=== PATIENT | female | born 1970 | race Caucasian/White ===

== ENCOUNTER 2024-02-18 19:34 | Inpatient (IN) | payer OTHER, SELFPAY ==
[2024-02-18] VITALS (7 sets, daily range): BP systolic 130–148; BP diastolic 78–95; PULSE 90–105; RESP 16–20; TEMP 37.1–38.6; O2SAT 96–98; BMI 27.3
--- NOTE | 2024-02-18 19:47 | XR_ITS ---
PROCEDURE INFORMATION: Exam: XR Right Tibia and Fibula Exam date and time: 02/18/2024 7:57 PM Age: 53 years old Clinical indication: Pain; Lower leg; Right; Additional info: Fall TECHNIQUE: Imaging protocol: Radiologic exam of the right tibia and fibula. Views: 2 views. COMPARISON: CR XR ANKLE RT MIN 3V 02/18/2024 7:57 PM FINDINGS: Bones/joints: No acute fracture or malalignment. Soft tissues: Normal. IMPRESSION: No acute osseous findings.
--- NOTE | 2024-02-18 19:47 | XR_ITS ---
PROCEDURE INFORMATION: Exam: XR Right Foot Exam date and time: 02/18/2024 7:57 PM Age: 53 years old Clinical indication: Pain; Foot; Right; Additional info: Fell TECHNIQUE: Imaging protocol: Radiologic exam of the right foot. Views: 1 or 2 views. COMPARISON: CR XR ANKLE RT MIN 3V 02/18/2024 7:57 PM FINDINGS: Bones/joints: Nondisplaced 5th metatarsal base avulsion fracture. Mild calcaneal enthesopathy. Soft tissues: Mild soft tissue swelling. IMPRESSION: Nondisplaced 5th metatarsal base avulsion fracture.
--- NOTE | 2024-02-18 19:47 | XR_ITS ---
PROCEDURE INFORMATION: Exam: XR Right Ankle Exam date and time: 02/18/2024 7:57 PM Age: 53 years old Clinical indication: Pain; Ankle; Right; Additional info: Fell TECHNIQUE: Imaging protocol: Radiologic exam of the right ankle. Views: 3 or more views. COMPARISON: CR XR FOOT RT 2V 02/18/2024 7:57 PM FINDINGS: Bones/joints: Nondisplaced 5th metatarsal base fracture. Mild chronic posttraumatic avulsive changes of the lateral malleolus. Mild calcaneal enthesopathy. Soft tissues: Mild soft tissue swelling. IMPRESSION: Nondisplaced 5th metatarsal base fracture.
--- NOTE | 2024-02-18 19:47 | ED_ITS ---
<Statement entered by Deisy Kapoor MD - 02/18/24 23:08> I was consulted by the YESSI, and we discussed the complexity of the problems being addressed. I approved the treatment and management plan for this patient's care in the emergency department, thus performing a substantive portion of the medical decision making. Deisy Kapoor MD, JUAN PABLO, FACEP Discharge Plan Disposition Chief Complaint: Dizziness Referrals Follow up/Referrals: Provider,Referral, MD [Primary Care Provider] - See instructions Clinical Impressions Clinical Impression: Stroke Qualifiers: CVA mechanism: occlusion Laterality of affected vessel: left Metatarsal fracture Qualifiers: Encounter type: initial encounter Metatarsal bone: fifth Fracture type: closed Fracture alignment: nondisplaced Laterality: right Qualified Code(s): S92.354A - Nondisplaced fracture of fifth metatarsal bone, right foot, initial encounter for closed fracture UTI (urinary tract infection) Qualifiers: Urinary tract infection type: site unspecified Hematuria presence: with hematuria Qualified Code(s): N39.0 - Urinary tract infection, site not specified Discharge ED Provider: Deisy Kapoor General Adult HPI <FRACISCO Uribe - Last Filed: 02/18/24 23:07> General Chief complaint: Dizziness Stated complaint: AO 02-17-24 Hurt right ankle going to bathroom Time Seen by Provider: 02/18/24 19:46 History of Present Illness HPI narrative: Patient presents for initially a right ankle injury. Patient was going to the bathroom and fell injuring her right ankle yesterday. However on further questioning patient is normally conversant and she is having difficult conversing today. She was febrile and tachycardic on arrival. Patient has had multiple previous strokes and there are communication barriers at baseline however she is much more active. Patient does nod but she is giving having difficulty giving verbal answers today. She denies chest pain hemoptysis hematochezia melena nausea vomiting diarrhea dysuria. Related Data Allergies Allergy/AdvReac Type Severity Reaction Status Date / Time ibuprofen Allergy Verified 02/18/24 20:55 PFS <FRACISCO Uribe - Last Filed: 02/18/24 23:07> [facility] Disclaimer: The information contained in this section may have been updated after the patient was seen, as this information can be updated by other users. Social History (Updated 02/18/24 @ 23:07 by FRACISCO Uribe) Smoking Status: Current every day smoker alcohol intake: never current occupational status: disabled Travel in the last 8 weeks: None <FRACISCO Uribe - Last Filed: 02/18/24 23:07> ROS Obtained: Yes Systems reviewed as appropriate & no additional complaints except as documented Physical Exam <FRACISCO Uribe - Last Filed: 02/18/24 23:07> General General appearance: alert and in no apparent distress Eye Eye exam: Present normal appearance, PERRL and EOMI ENT ENT exam: Present normal exam, normal oropharynx and mucous membranes moist Neck Neck exam: Present normal inspection Chest Chest inspection: Present normal inspection and symmetric chest wall rise Respiratory Respiratory exam: Present normal lung sounds bilaterally and stridor; Absent respiratory distress, wheezes or accessory muscle use Cardiovascular Cardiovascular exam: Present normal rhythm, tachycardia, normal heart sounds, +S1 and +S2 Abdominal Exam Abdominal exam: Present soft and normal bowel sounds; Absent tenderness, guarding, rebound or rigidity Expanded Lower Extremity Exam Right: Leg image: 2 1. Tenderness and edema no erythema no bony deformity noted Neurological Exam Neurological exam: Present alert, CN II-XII intact and other (Patient is aphasic); Absent oriented X3 or normal gait Psychiatric Psychiatric exam: Present normal affect and normal mood Skin Skin exam: Present warm, dry and normal color Lymphatic Lymphatic Findings: no adenopathy Medical Decision Making <FRACISCO Uribe - Last Filed: 02/18/24 23:07> Medical Records Medical records reviewed: Yes I reviewed the patient's medical records. Florencio Inquiry Pt receiving controlled substance: No Vital Signs: 02/18/24 19:36 02/18/24 20:00 02/18/24 20:54 Temperature 101.4 F H Temperature Source Oral Pulse Rate 102 H 98 H Pulse Rate [Right Radial] 105 H Respiratory Rate 20 Blood Pressure 146/93 H 148/95 H Blood Pressure [Right Arm] 136/91 H Blood Pressure Mean 103 Blood Pressure Mean [Right Arm] 106 02 Sat by Pulse Oximetry 96 97 96 Oxygen Delivery Method Room Air Room Air 02/18/24 21:00 02/18/24 21:10 02/18/24 21:20 Temperature Temperature Source Pulse Rate 94 H 90 90 Pulse Rate [Right Radial] Respiratory Rate Blood Pressure 141/95 H 137/94 H 130/88 Blood Pressure [Right Arm] Blood Pressure Mean 110 108 104 Blood Pressure Mean [Right Arm] 02 Sat by Pulse Oximetry 98 97 96 Oxygen Delivery Method Room Air Room Air Room Air Lab Data Lab results reviewed: Yes I reviewed the patient's lab results. Lab Results 02/18/24 20:35: WBC 7.3, RBC 4.88, Hgb 14.3, Hct 44.8, MCV 91.7, MCH 29.2, MCHC 31.9, RDW 15.3, Plt Count 218, MPV 8.5, Neut % (Auto) 69.4, Lymph % (Auto) 20.7, [place] % (Auto) 7.7, Eos % (Auto) 1.4, Baso % (Auto) 0.8, Neut # (Auto) 5.0, Lymph # (Auto) 1.5, [place] # (Auto) 0.6, Eos # (Auto) 0.1, Baso # (Auto) 0.1, Sodium 132 L, Potassium 3.5, Chloride 101, Carbon Dioxide 19 L, Anion Gap 15.5 H, BUN 13, Creatinine 0.70, Estimated Creat Clear 95, Estimated GFR 88, Est GFR ( Amer) 107, Glucose 120 H, Lactate 1.1, Calcium 9.3, Magnesium 1.8, Total Bilirubin 0.9, AST 34, ALT 17, Alkaline Phosphatase 97, Total Protein 8.0, Albumin 4.4, Globulin 3.6 H, Albumin/Globulin Ratio 1.2, Procalcitonin 0.042 02/18/24 22:01: Urine Color Yellow, Urine Appearance Clear, Urine pH 6.0, Ur Specific Eldridge <= 1.005, Urine Protein Negative, Urine Glucose (UA) Negative, Urine Ketones Negative, Urine Blood Trace-i, Urine Nitrate Negative, Urine Bilirubin Negative, Urine Urobilinogen 0.2, Ur Leukocyte Esterase 1+ A, Urine RBC Occasional, Urine WBC 5-10, Ur Squamous Epith Cells Occasional, Urine Bacteria 2+ 02/18/24 20:35 02/18/24 20:35 Orders (Tests/Meds): ED MEDICATIONS Generic Name Dose Route Start Last Admin Trade Name Freq PRN Reason Stop Dose Admin Ceftriaxone Sodium 1 gm/ 50 mls @ 100 mls/hr 02/18/24 23:15 Sodium Chloride IV 02/28/24 23:14 Q24H DRE Discontinued Medications Generic Name Dose Route Start Last Admin Trade Name Marioq PRN Reason Stop Dose Admin Acetaminophen 1,000 mg 02/18/24 19:48 02/18/24 20:18 Acetaminophen 500mg Tab PO 02/18/24 19:49 Not Given ONCE ONE Acetaminophen 1,000 mg 02/18/24 20:04 02/18/24 20:21 Acetaminophen 1,000mg/100ml Vial IV 02/18/24 20:05 1,000 mg ONCE ONE Administration Ceftriaxone Sodium 1 gm 02/18/24 22:51 02/18/24 23:05 Ceftriaxone 1gm Vial IM 02/18/24 22:52 Not Given ONCE ONE Lactated Ringer's 1,000 mls @ 999 mls/hr 02/18/24 20:04 02/18/24 20:21 Lactated Ringer's 1000 Ml Bag IV 02/18/24 21:04 999 mls/hr .Q1H1M ONE Administration Ibuprofen 800 mg 02/18/24 19:48 02/18/24 20:58 Ibuprofen 400 Mg Tablet PO 02/18/24 19:49 Not Given ONCE ONE Iopamidol 100 ml 02/18/24 21:49 02/18/24 21:50 Iopamidol-370 (76%);100ml Bottle IV 02/18/24 21:50 100 ml ONCE ONE Administration Lidocaine HCl 0 ml 02/18/24 22:51 02/18/24 23:05 Lidocaine 1% 5ml Pf Vial IM 02/18/24 22:52 Not Given ONCE ONE Sodium Chloride 10 ml 02/18/24 21:49 02/18/24 21:50 Sodium Chloride 0.9% 10ml Syr (Rad Only) IV 02/18/24 21:50 10 ml ONCE ONE Administration Sodium Chloride 50 ml 02/18/24 21:49 02/18/24 21:49 0.9 % Sodium Chloride 50 Ml Vial IV 02/18/24 21:50 50 ml ONCE ONE Administration ORDERS Category Date Time Status CT angio head Stat Cat Scan 02/18/24 21:[address] angio neck Stat Cat Scan 02/18/24 21:[address] head/brain wo con Stat Cat Scan 02/18/24 20:58 Completed Ankle XR -Right minimum 3 Views [XR ankle RT min 3V] Exams 02/18/24 19:47 Completed Stat Chest XR -- portable [XR chest portable] Stat Exams 02/18/24 20:58 Completed Foot XR right 2 views [XR foot RT 2V] Stat Exams 02/18/24 19:47 Completed Tibia/fibula XR right 2 views [XR tibia fibula RT 2V] Exams 02/18/24 19:47 Completed Stat CBC w/Auto Diff [Complete Blood Count Auto Diff] Stat Lab 02/18/24 20:35 Completed CMP [Comprehensive Metabolic Panel] Stat Lab 02/18/24 20:35 Completed Lactic Acid Stat Lab 02/18/24 20:35 Completed Magnesium Stat Lab 02/18/24 20:35 Completed Procalcitonin Stat Lab 02/18/24 20:35 Completed UA [Urinalysis and Microscopic] Stat Lab 02/18/24 22:01 Completed Urine Culture Stat Micro 02/18/24 22:01 Received Medical Decision Narrative: In summary patient is a 53-year-old female who presents to the emergency department for evaluation of right lower extremity injury, fever and tachycardia and possible encephalopathy. Patient is normotensive tachycardic upon arrival, and febrile to 101.4. Physical exam shows tenderness at the right foot ankle. Patient is aphasic and last 1 well is unknown. Patient's brother has arrived and gives us a history of a recent stroke treated initially at [place] and then at [facility]. Patient has been aphasic 2 to 3 weeks now. Patient denies any other complaint other than right ankle pain however she is an unreliable historian.. Patient shows sinus tachycardia on the bedside monitor. Differential diagnosis includes progressive stroke versus encephalopathy versus infection versus ankle sprain versus fracture. Initial workup will be conducted with hematologic labs CT scan of the head neck CTA head and neck. Initial interventions include crystalloid bolus Toradol Tylenol. Initial workup reviewed by me shows that her hematologic labs are nonactionable however she has significant urinary tract infection. Chest x-ray shows no acute processes however CT scan shows extensive previous strokes and I am going to defer to radiology for the acute reads. She has a subacute left JUANA territory stroke and possible extension of her left MCA stroke. However her symptoms have been ongoing for at least 2 to 3 weeks neurologically speaking thus no intervention is indicated especially with no large vessel occlusion currently. Her plain film foot x-ray shows 1/5 metatarsal fracture.. Upon repeat evaluation patient is still too weak to walk on her own. Given this and interactive discussion with the patient and her family about admission and they are agreeable. Then I had an interactive discussion with hospital medicine who is agreed for further evaluation and care for rehab needs. <Deisy Kapoor MD - Last Filed: 02/18/24 23:09> Vital Signs: 02/18/24 19:36 02/18/24 20:00 02/18/24 20:54 Temperature 101.4 F H Temperature Source Oral Pulse Rate 102 H 98 H Pulse Rate [Right Radial] 105 H Respiratory Rate 20 Blood Pressure 146/93 H 148/95 H Blood Pressure [Right Arm] 136/91 H Blood Pressure Mean 103 Blood Pressure Mean [Right Arm] 106 02 Sat by Pulse Oximetry 96 97 96 Oxygen Delivery Method Room Air Room Air 02/18/24 21:00 02/18/24 21:10 02/18/24 21:20 Temperature Temperature Source Pulse Rate 94 H 90 90 Pulse Rate [Right Radial] Respiratory Rate Blood Pressure 141/95 H 137/94 H 130/88 Blood Pressure [Right Arm] Blood Pressure Mean 110 108 104 Blood Pressure Mean [Right Arm] 02 Sat by Pulse Oximetry 98 97 96 Oxygen Delivery Method Room Air Room Air Room Air Lab Data Lab Results 02/18/24 20:35: WBC 7.3, RBC 4.88, Hgb 14.3, Hct 44.8, MCV 91.7, MCH 29.2, MCHC 31.9, RDW 15.3, Plt Count 218, MPV 8.5, Neut % (Auto) 69.4, Lymph % (Auto) 20.7, [place] % (Auto) 7.7, Eos % (Auto) 1.4, Baso % (Auto) 0.8, Neut # (Auto) 5.0, Lymph # (Auto) 1.5, [place] # (Auto) 0.6, Eos # (Auto) 0.1, Baso # (Auto) 0.1, Sodium 132 L, Potassium 3.5, Chloride 101, Carbon Dioxide 19 L, Anion Gap 15.5 H, BUN 13, Creatinine 0.70, Estimated Creat Clear 95, Estimated GFR 88, Est GFR ( Amer) 107, Glucose 120 H, Lactate 1.1, Calcium 9.3, Magnesium 1.8, Total Bilirubin 0.9, AST 34, ALT 17, Alkaline Phosphatase 97, Total Protein 8.0, Albumin 4.4, Globulin 3.6 H, Albumin/Globulin Ratio 1.2, Procalcitonin 0.042 02/18/24 22:01: Urine Color Yellow, Urine Appearance Clear, Urine pH 6.0, Ur Specific [place] <= 1.005, Urine Protein Negative, Urine Glucose (UA) Negative, Urine Ketones Negative, Urine Blood Trace-i, Urine Nitrate Negative, Urine Bilirubin Negative, Urine Urobilinogen 0.2, Ur Leukocyte Esterase 1+ A, Urine RBC Occasional, Urine WBC 5-10, Ur Squamous Epith Cells Occasional, Urine Bacteria 2+ Orders (Tests/Meds): ED MEDICATIONS Generic Name Dose Route Start Last Admin Trade Name Freq PRN Reason Stop Dose Admin Ceftriaxone Sodium 1 gm/ 50 mls @ 100 mls/hr 02/18/24 23:15 Sodium Chloride IV 02/28/24 23:14 Q24H DRE Discontinued Medications Generic Name Dose Route Start Last Admin Trade Name Freq PRN Reason Stop Dose Admin Acetaminophen 1,000 mg 02/18/24 19:48 02/18/24 20:18 Acetaminophen 500mg Tab PO 02/18/24 19:49 Not Given ONCE ONE Acetaminophen 1,000 mg 02/18/24 20:04 02/18/24 20:21 Acetaminophen 1,000mg/100ml Vial IV 02/18/24 20:05 1,000 mg ONCE ONE Administration Ceftriaxone Sodium 1 gm 02/18/24 22:51 02/18/24 23:05 Ceftriaxone 1gm Vial IM 02/18/24 22:52 Not Given ONCE ONE Lactated Ringer's 1,000 mls @ 999 mls/hr 02/18/24 20:04 02/18/24 20:21 Lactated Ringer's 1000 Ml Bag IV 02/18/24 21:04 999 mls/hr .Q1H1M ONE Administration Ibuprofen 800 mg 02/18/24 19:48 02/18/24 20:58 Ibuprofen 400 Mg Tablet PO 02/18/24 19:49 Not Given ONCE ONE Iopamidol 100 ml 02/18/24 21:49 02/18/24 21:50 Iopamidol-370 (76%);100ml Bottle IV 02/18/24 21:50 100 ml ONCE ONE Administration Lidocaine HCl 0 ml 02/18/24 22:51 02/18/24 23:05 Lidocaine 1% 5ml Pf Vial IM 02/18/24 22:52 Not Given ONCE ONE Sodium Chloride 10 ml 02/18/24 21:49 02/18/24 21:50 Sodium Chloride 0.9% 10ml Syr (Rad Only) IV 02/18/24 21:50 10 ml ONCE ONE Administration Sodium Chloride 50 ml 02/18/24 21:49 02/18/24 21:49 0.9 % Sodium Chloride 50 Ml Vial IV 02/18/24 21:50 50 ml ONCE ONE Administration ORDERS Category Date Time Status CT angio head Stat Cat Scan 02/18/24 21:[address] angio neck Stat Cat Scan 02/18/24 21:[address] head/brain wo con Stat Cat Scan 02/18/24 20:58 Completed Ankle XR -Right minimum 3 Views [XR ankle RT min 3V] Exams 02/18/24 19:47 Completed Stat Chest XR -- portable [XR chest portable] Stat Exams 02/18/24 20:58 Completed Foot XR right 2 views [XR foot RT 2V] Stat Exams 02/18/24 19:47 Completed Tibia/fibula XR right 2 views [XR tibia fibula RT 2V] Exams 02/18/24 19:47 Completed Stat CBC w/Auto Diff [Complete Blood Count Auto Diff] Stat Lab 02/18/24 20:35 Completed CMP [Comprehensive Metabolic Panel] Stat Lab 02/18/24 20:35 Completed Lactic Acid Stat Lab 02/18/24 20:35 Completed Magnesium Stat Lab 02/18/24 20:35 Completed Procalcitonin Stat Lab 02/18/24 20:35 Completed UA [Urinalysis and Microscopic] Stat Lab 02/18/24 22:01 Completed Urine Culture Stat Micro 02/18/24 22:01 Received Critical Care <FRACISCO Uribe - Last Filed: 02/18/24 23:07> Critical Care Time Critical Care Time: No <Deisy Kapoor MD - Last Filed: 02/18/24 23:09> Critical Care Time Critical Care Time: Yes Attestation: On 02/18/24, the high probability of a clinically significant, sudden or life threatening deterioration of the following system(s) required my full and direct attention, intervention and personal management. The time I documented below is in addition to time spent performing reported procedures but includes the following listed in this critical care notation. Total Time Total Critical Care Time: 35
[2024-02-18] MEDS: ACETAMINOPHEN 1,000MG/100ML VIAL 1000 MG IV (20:21)
[2024-02-18] MEDS: LACTATED RINGERS 1000ML 1,000 ML 999 ML IV (20:21)
--- NOTE | 2024-02-18 20:45 | PC.NURSE ---
While obtaining lab work in patient room, daughter at bedside asks what medications patient is receiving. I informed daughter that patient is receiving meds in MAR, to which daughter responds that patient is allergic to ibuprofen. This information was not informed to staff per family until this moment, and not updated in patient chart. TRN called [facility] to which patient receives majority of patient care, and speaks with Sakina who confirms patients allergies which include only ibuprofen. Ibuprofen not given and dc on patient MAR, and allergies in patient chart updated to reflect current information.
[2024-02-18 20:46] LABS: Basophils # 0.1 K/mm3 (0-0.2); Basophils % 0.8 % (0.1-2.0); Eosinophils # 0.1 K/mm3 (0.0-0.4); Eosinophils % 1.4 % (0.1-12.0); Hematocrit 44.8 % (37.0-47.0); Hemoglobin 14.3 g/dL (12.2-16.2); Lymphocytes # 1.5 K/mm3 (0.7-4.5); Lymphocytes % 20.7 % (10-50); Mean Corpuscular HGB Conc 31.9 g/dL (31.8-35.4); Mean Corpuscular Hemoglobin 29.2 pg (27.0-31.2); Mean Corpuscular Volume 91.7 fl (81-99); Mean Platelet Volume 8.5 fl (7.4-10.4); Monocytes # 0.6 K/mm3 (0.1-1.0); Monocytes % 7.7 % (1.7-9.3); Neutrophils % 69.4 % (37.0-80.0); Platelet Count 218 K/mm3 (142-424); Red Blood Count 4.88 M/mm3 (4.20-5.40); Red Cell Distribution Width 15.3 % (11.5-17.5); White Blood Count 7.3 K/mm3 (4.8-10.8)
--- NOTE | 2024-02-18 20:48 | ECG_ITS ---
APPROVED REPORT Exam: Resting ECG HR:101 bpm ECG Measurements Heart Rate 101 AXES OH 125 P 48 QRSd 84 QRS 14 QT 337 T 138 QTc 395 Conclusion SINUS TACHYCARDIA NONSPECIFIC ST & T-WAVE ABNORMALITY ABNORMAL ECG UNCONFIRMED REPORT Electronically signed by : Fermin Kapoor, 02/18/2024 23:14:55
[2024-02-18 20:54] LABS: Lactic Acid 1.1 mmol/L (0.7-2.1)
--- NOTE | 2024-02-18 20:58 | CT_ITS ---
PROCEDURE INFORMATION: Exam: CT Head Without Contrast Exam date and time: 02/18/2024 9:34 PM Age: 53 years old Clinical indication: Fever; Additional info: Encephalopathy, fever, tachycardia TECHNIQUE: Imaging protocol: Computed tomography of the head without contrast. Radiation optimization: All CT scans at this facility use at least one of these dose optimization techniques: automated exposure control; mA and/or kV adjustment per patient size (includes targeted exams where dose is matched to clinical indication); or iterative reconstruction. COMPARISON: CT ANGIO HEAD 02/18/2024 9:34 PM FINDINGS: Brain: Large region of hypoattenuation corresponding to the left anterior cerebral artery territory extending to the cortex. Large region of encephalomalacia and gliosis corresponding to the left middle cerebral artery territory. No acute intracranial hemorrhage, midline shift or mass effect. Cerebral ventricles: Ex vacuo dilatation of the left lateral ventricle. Paranasal sinuses: Left sphenoid sinus bubbly opacities suggestive of acute sinusitis. Mastoid air cells: Visualized mastoid air cells are well aerated. Bones: Unremarkable. No acute fracture. Soft tissues: Unremarkable. IMPRESSION: 1. Large region of hypoattenuation corresponding to the left anterior cerebral artery territory extending to the cortex suspicious for acute ischemic infarct. No acute intracranial hemorrhage. 2. Large region of encephalomalacia and gliosis corresponding to the left middle cerebral artery territory most compatible with old infarct. An acute on chronic ischemic infarct is difficult to exclude.
--- NOTE | 2024-02-18 20:58 | XR_ITS ---
PROCEDURE INFORMATION: Exam: XR Chest Exam date and time: 02/18/2024 9:47 PM Age: 53 years old Clinical indication: Fever; Additional info: Fever tachycardia TECHNIQUE: Imaging protocol: Radiologic exam of the chest. Views: 1 view. COMPARISON: CT ANGIO NECK 02/18/2024 9:34 PM FINDINGS: Lungs: No consolidation. Pleural spaces: No pleural effusion. No pneumothorax. Heart/Mediastinum: No cardiomegaly. Bones/joints: Unremarkable. IMPRESSION: No acute pulmonary findings.
[2024-02-18 20:59] LABS: Alanine Aminotransferase 17 U/L (12-78); Albumin Level 4.4 g/dl (3.5-5.0); Albumin/Globulin Ratio 1.2 (1.1-1.8); Alkaline Phosphatase 97 U/L (38-126); Anion Gap 15.5 mEq/L (5-15); Aspartate Amino Transferase 34 U/L (14-36); Bilirubin,Total 0.9 mg/dl (0.2-1.3); Blood Urea Nitrogen 13 mg/dl (7-17); Calcium 9.3 mg/dl (8.4-10.2); Carbon Dioxide 19 mmol/L (22.0-30.0); Chloride 101 mmol/L (98-107); Creatinine Clearance Estimated 95 mL/min (50-200); Estimated Glomerular Filt Rate 88 ml/min (>60); GFR (African American) 107 ML/MIN (>60); Globulin 3.6 g/dL (1.3-3.2); Glucose 120 mg/dl (74-100); Potassium 3.5 mmoL/L (3.5-5.1); Sodium 132 mmol/L (136-145)
[2024-02-18 21:00] LABS: Magnesium 1.8 mg/dl (1.6-2.3)
--- NOTE | 2024-02-18 21:05 | CT_ITS ---
PROCEDURE INFORMATION: Exam: CTA Head With Contrast, Arteriography Exam date and time: 02/18/2024 9:34 PM Age: 53 years old Clinical indication: Other: Aphasia TECHNIQUE: Imaging protocol: Computed tomographic angiography of the head with contrast. Exam focused on the arteries. 3D rendering (Not supervised by radiologist): MIP and/or 3D reconstructed images were created by the technologist. Radiation optimization: All CT scans at this facility use at least one of these dose optimization techniques: automated exposure control; mA and/or kV adjustment per patient size (includes targeted exams where dose is matched to clinical indication); or iterative reconstruction. Contrast material: ISOVUE; Contrast volume: 100 ml; Contrast route: INTRAVENOUS (IV); COMPARISON: CT HEAD/BRAIN WO CON 02/18/2024 9:34 PM FINDINGS: ANTERIOR CIRCULATION: Right internal carotid artery: Intracranial segment is patent with no significant stenosis. No aneurysm. Right middle cerebral artery: No occlusion or significant stenosis. No aneurysm. Right anterior cerebral artery: No occlusion or significant stenosis. No aneurysm. Left internal carotid artery: Occluded left internal carotid artery from the proximal cervical segment 0.6 cm from the origin to the distal communicating segment where there is reconstitution of flow into the left middle cerebral artery. Left middle cerebral artery: Decreased arborization of the M4 segments. No aneurysm. Left anterior cerebral artery: Occluded. POSTERIOR CIRCULATION: Right vertebral artery: No occlusion or significant stenosis. No aneurysm. Left vertebral artery: Mild atherosclerotic narrowing of the mid V4 segment without flow-limiting stenosis. No aneurysm. Basilar artery: No occlusion or significant stenosis. No aneurysm. Right posterior cerebral artery: No occlusion or significant stenosis. No aneurysm. Left posterior cerebral artery: No occlusion or significant stenosis. No aneurysm. Brain: No definite mass, mass effect, or midline shift. Cerebral ventricles: No ventriculomegaly. Bones/joints: Unremarkable. No acute fracture. Soft tissues: Unremarkable. IMPRESSION: 1. Occluded left internal carotid artery from the proximal cervical segment 0.6 cm from the origin to the distal communicating segment where there is reconstitution of flow into the left middle cerebral artery. 2. Occluded left anterior cerebral artery. 3. Decreased arborization of the left middle cerebral artery M4 segments indicative of diminished flow or occlusion.
--- NOTE | 2024-02-18 21:05 | CT_ITS ---
PROCEDURE INFORMATION: Exam: CTA Neck With Contrast Exam date and time: 02/18/2024 9:34 PM Age: 53 years old Clinical indication: Other: Aphasia TECHNIQUE: Imaging protocol: Computed tomographic angiography of the neck with contrast. Exam focused on the cervical segments of the vasculature. 3D rendering (Not supervised by radiologist): MIP and/or 3D reconstructed images were created by the technologist. Radiation optimization: All CT scans at this facility use at least one of these dose optimization techniques: automated exposure control; mA and/or kV adjustment per patient size (includes targeted exams where dose is matched to clinical indication); or iterative reconstruction. Contrast material: ISOVUE; Contrast volume: 100 ml; Contrast route: INTRAVENOUS (IV); COMPARISON: CT ANGIO HEAD 02/18/2024 9:34 PM FINDINGS: Limitations: Motion artifact. Right common carotid artery: No stenosis. No dissection or occlusion. Right internal carotid artery: Mild stenosis of the proximal cervical segment. No dissection or occlusion. Right external carotid artery: Minimal atherosclerosis of the proximal segment without flow-limiting stenosis. Left common carotid artery: No stenosis. No dissection or occlusion. Left internal carotid artery: Occluded left internal carotid artery from the proximal cervical segment 0.6 cm from the origin to the distal communicating segment where there is reconstitution of flow into the left middle cerebral artery. Left external carotid artery: No occlusion or stenosis of the origin. Right vertebral artery: No stenosis. No dissection or occlusion. Left vertebral artery: Dominant vessel. Minimal atherosclerosis of the proximal V2 segment without flow-limiting stenosis. No dissection or occlusion. Soft tissues: Normal. No significant soft tissue swelling. Bones/joints: No acute fracture. IMPRESSION: 1. Occluded left internal carotid artery from the proximal cervical segment 0.6 cm from the origin to the distal communicating segment where there is reconstitution of flow into the left middle cerebral artery. 2. Mild right internal carotid artery proximal cervical segment stenosis. REFERENCES: NASCET CRITERIA. The degree of stenosis in the cervical segment of the internal carotid artery is based on NASCET criteria. Normal is no stenosis. Mild is less than 50% stenosis. Moderate is 50-69% stenosis. Severe is 70% to 99% stenosis. Total occlusion is no detectable patent lumen.
[2024-02-18 21:15] LABS: Procalcitonin 0.042 ng/mL (0.0-2.0)
[2024-02-18] MEDS: 0.9 % SODIUM CHLORIDE 50 ML VIAL IV (21:49)
[2024-02-18] MEDS: IOPAMIDOL-370 (76%);100ML BOTTLE 100 ML IV (21:50)
[2024-02-18] MEDS: SODIUM CHLORIDE 0.9% 10ML SYR (RAD ONLY) 10 ML IV (21:50)
[2024-02-18 22:12] LABS: Microscopic, Urine URINE MICROSCOPIC (MICROSCOPIC)
[2024-02-18 22:17] LABS: Appearance,Urine CLEAR (Clear); Bilirubin,Urine Negative (Negative); Blood, Urine TRACE-I (Negative); Color,Urine YELLOW (Yellow); Glucose,Urine (UA) Negative (Negative); Ketones,Urine Negative (Negative); Leukocyte Esterase,Urine 1+ (Negative); Nitrate,Urine Negative (Negative); Protein,Urine Negative (Negative); Specific Gravity, Urine <= 1.005 (1.005-1.030); Urobilinogen,Urine 0.2 EU/dl (0.2)
[2024-02-18 22:46] LABS: Bacteria,Urine 2+ /lpf; RBC,Urine Occasional #/hpf (0-3); Squamous Epithelial Cell,Urine Occasional #/hpf (0-5)
--- NOTE | 2024-02-18 23:13 | P.HP_ITS ---
History of Present Illness *Admission Date: 02/18/24 *Reason for visit:: right foot pain *History of present illness: This is a 53-year-old female obese with past medical history of tlj-otxsyto-ctxcsdyxy type 2 diabetes, developmental disability on baseline, previous stroke, hypertension, ICAO status post stent on the left. History is limited because of the patient current condition, patient has been nonverbal since November/2023, when was found to have acute left frontal and parietal lobe stroke. Patient has right upper extremity neglect and aphasia as an neurodeficit. Patient seems to understand simple commands, however has been nonverbal since prior stroke, brother contributed with the history. At the time of this assessment family have left for the day. Documentation per ED shows that patient has presented to the ED for evaluation at right ankle pain, after apparent fall at home. On arrival she was found to be tachycardiac, and on apparent altered mental status. Patient was also febrile. Admitted for inpatient management [facility] Disclaimer: The information contained in this section may have been updated after the patient was seen, as this information can be updated by other users. Social History (Updated 02/18/24 @ 23:07 by FRACISCO Uribe) Smoking Status: Current every day smoker alcohol intake: never current occupational status: disabled Travel in the last 8 weeks: None Review of Systems Review of Systems Review of systems:: unable to obtain Meds Home Medications and Allergies Home Medications Medication Instructions Recorded Confirmed Type aspirin 81 mg tablet,delayed 81 mg PO DAILY 02/19/24 02/19/24 History release cetirizine 10 mg tablet 10 mg PO DAILY 02/19/24 02/19/24 History clopidogrel 75 mg tablet 75 mg PO DAILY 02/19/24 02/19/24 History ergocalciferol (vitamin D2) 1,250 1,250 mcg PO WEEKLY 02/19/24 02/19/24 History mcg (50,000 unit) capsule (Vitamin D2) escitalopram oxalate 10 mg tablet 10 mg PO DAILY 02/19/24 02/19/24 History ezetimibe 10 mg tablet 10 mg PO DAILY 02/19/24 02/19/24 History fluticasone propionate 50 2 spray intranasal DAILY 02/19/24 02/19/24 History mcg/actuation nasal spray,suspension losartan 100 1 tab PO DAILY 02/19/24 02/19/24 History mg-hydrochlorothiazide 25 mg tablet metformin 500 mg tablet 500 mg PO DAILY 02/19/24 02/19/24 History New Prescriptions to Start Prescriptions: Allergies Allergy/AdvReac Type Severity Reaction Status Date / Time ibuprofen Allergy Verified 02/18/24 20:55 Exam Data for Last 24 hours Vital signs and Labs for Last 24 Hours: Temp Pulse Resp BP Pulse Ox O2 Del Method 101.4 F H 90 20 130/88 96 Room Air 02/18/24 19:36 02/18/24 21:20 02/18/24 19:36 02/18/24 21:20 02/18/24 21:20 02/18/24 21:20 Laboratory Results - last 24 hr 02/18/24 20:35: WBC 7.3, RBC 4.88, Hgb 14.3, Hct 44.8, MCV 91.7, MCH 29.2, MCHC 31.9, RDW 15.3, Plt Count 218, MPV 8.5, Neut % (Auto) 69.4, Lymph % (Auto) 20.7, Rankin % (Auto) 7.7, Eos % (Auto) 1.4, Baso % (Auto) 0.8, Neut # (Auto) 5.0, Lymph # (Auto) 1.5, Rankin # (Auto) 0.6, Eos # (Auto) 0.1, Baso # (Auto) 0.1, Sodium 132 L, Potassium 3.5, Chloride 101, Carbon Dioxide 19 L, Anion Gap 15.5 H, BUN 13, Creatinine 0.70, Estimated Creat Clear 95, Estimated GFR 88, Est GFR ( Amer) 107, Glucose 120 H, Lactate 1.1, Calcium 9.3, Magnesium 1.8, Total Bilirubin 0.9, AST 34, ALT 17, Alkaline Phosphatase 97, Total Protein 8.0, Albumin 4.4, Globulin 3.6 H, Albumin/Globulin Ratio 1.2, Procalcitonin 0.042 02/18/24 22:01: Urine Color Yellow, Urine Appearance Clear, Urine pH 6.0, Ur Specific [place] <= 1.005, Urine Protein Negative, Urine Glucose (UA) Negative, Urine Ketones Negative, Urine Blood Trace-i, Urine Nitrate Negative, Urine Bilirubin Negative, Urine Urobilinogen 0.2, Ur Leukocyte Esterase 1+ A, Urine RBC Occasional, Urine WBC 5-10, Ur Squamous Epith Cells Occasional, Urine Bacteria 2+ I & O for Last 24 hours: Intake & Output 02/15/24 02/16/24 02/17/24 02/18/24 23:59 23:59 23:59 23:59 Weight 63.503 kg Constitutional Constitutional: no acute distress and obese *Routine HEENT Exam Head: Present normocephalic Eye: Present EOMI and PERRL ENT: Present mucous membranes moist *Routine Neck Exam Neck: Present supple; Absent lymphadenopathy *Routine Respiratory Exam Respiratory: Present CTA bilaterally, normal respiratory effort and symmetric chest movement *Routine Cardiovascular Exam Cardiovascular: Present RRR *Routine Abdominal Exam Abdominal: Present soft, normoactive bowel sounds and obese; Absent tenderness *Routine Rectal Exam Rectal:: deferred *Routine Genitalia Exam Genitalia:: deferred *Routine Extremities Exam Extremities: Present tenderness; Absent cyanosis, clubbing, edema or full ROM Comments: right upper arm contracture. right foot tenderness. no swelling *Routine Skin Exam Skin: Present warm; Absent rash *Routine Neurological Exam Neurological: Present alert, sensory deficit, motor deficit and hemineglect; Absent oriented X3, normal reflexes, moving all extremities or normal speech H&P: Result Imaging and Cardiology EKG: Status: image reviewed by me, Preliminary report and final report CT scan - head: Status: image reviewed by me, Preliminary report and final report CT scan - chest: Status: image reviewed by me, Preliminary report and final report Assessment and Plan *Assessment and plan (1) Metatarsal fracture: Status: Acute Qualifiers: Encounter type: initial encounter Fracture alignment: nondisplaced Fracture type: closed Laterality: right Metatarsal bone: fifth Qualified Code(s): S92.354A - Nondisplaced fracture of fifth metatarsal bone, right foot, initial encounter for closed fracture Category: Medical Code(s): S92.309A - Fracture of unspecified metatarsal bone(s), unspecified foot, initial encounter for closed fracture (2) Aphasia as late effect of cerebrovascular accident: Status: Acute Category: Medical Code(s): I69.320 - Aphasia following cerebral infarction (3) UTI (urinary tract infection): Status: Acute Qualifiers: Hematuria presence: with hematuria Urinary tract infection type: site unspecified Qualified Code(s): N39.0 - Urinary tract infection, site not specified; R31.9 - Hematuria, unspecified Category: Medical Code(s): N39.0 - Urinary tract infection, site not specified (4) Stroke: Status: Acute Qualifiers: CVA mechanism: occlusion Laterality of affected vessel: left Precerebral and cerebral artery: cerebellar artery Qualified Code(s): I63.542 - Cerebral infarction due to unspecified occlusion or stenosis of left cerebellar artery Category: Medical Code(s): I63.9 - Cerebral infarction, unspecified (5) Diabetes: Status: Acute Qualifiers: Diabetes mellitus complication status: with other specified complication Diabetes mellitus terminal operator insulin use: without terminal operator use Diabetes mellitus type: type 2 Qualified Code(s): E11.69 - Type 2 diabetes mellitus with other specified complication Category: Medical Code(s): E11.9 - Type 2 diabetes mellitus without complications (6) HTN (hypertension): Status: Acute Qualifiers: Hypertension type: unspecified Qualified Code(s): I10 - Essential (primary) hypertension Category: Medical Code(s): I10 - Essential (primary) hypertension (7) Tobacco abuse: Status: Acute Category: Medical Code(s): Z72.0 - Tobacco use Plan 3-year-old female obese with past medical history of xoe-zorvyuy-gxfnrjxvw type 2 diabetes, previous stroke, hypertension, ICAO status post stent on the left, unclear baseline, apparently ambulatory, with right upper arm deficit and aphasia. Coming for evaluation of right ankle pain after fall at home, fever, and altered mental status, according to family less responsive. Initial interventions include crystalloid bolus Toradol Tylenol. Initial workup reviewed by me shows that her hematologic labs are nonactionable however she has urinary tract infection. Chest x-ray shows no acute processes however CT scan shows extensive previous strokes. She has a subacute left JUANA territory stroke and possible extension of her left MCA stroke. No neurological interventions. Plain x-ray showed right fifth metatarsal fracture nondisplaced. ED request admission for inpatient management. Discussion was made about finding. Patient will be benefit for evaluation and therapy, likely will need placement. I agree for admission. Plan as follows: -Right fifth metatarsal fracture. Avulsion type fracture nondisplaced. Requiring only symptomatic treatments> UTI -Aphasia as a late effect of CVA -Acute on subacute stroke Admit patient for inpatient management. Neurocheck every 4. Obtain a stat CT If neuro condition deteriorates PT/ OT consult for evaluation and treatment. Patient might need surgical boots Evaluation for placement. Patient lives with the brother CT of the head reviewed. Hard to determine acute superimposed stroke Obtain MRI of the brain for definitive diagnosis Started on ceftriaxone 1 g daily for urinary tract infection Monitor for sepsis, and temperature Tylenol and morphine as needed for pain management and fever Speech therapy Keep patient n.p.o. until Speech eval or mentation improved Resume aspirin and Plavix -NIDDM: Accu-Chek before meals on sliding scale Last A1c 5.9 reviewed from outside previous records Hypertension On losartan and hydrochlorothiazide Resume medication Tobacco user: On nicotine patch Lovenox for DVT prophylaxis. Protonix Full code Rounded on patient after nurse practitioner. Personally examined and interviewed patient. Agree with exam findings and care plan as documented.
--- NOTE | 2024-02-18 23:44 | PC.NURSE ---
RECEIVED PHONE REPORT LASHA LORA RN/ED NURSE AT [id number]. PATIENT IS A 53 YO FEMALE. DIAGNOSIS CVA/UTI / RIGHT FOOT FRACTURE. APHASIA. BEDRIDDEN. INCONTINENT. NO FAMILY COMING WITH HER TO THE MED SURG FLOOR, ALL WENT HOME.
--- NOTE | 2024-02-18 23:45 | PC.NURSE ---
Patient arrived to floor via stretcher from ED at 23:36.
--- NOTE | 2024-02-18 23:47 | PC.NURSE ---
[id number] PATIENT ARRIVED TO THE FLOOR VIA STRETCHER. INCONT LARGE AMT URINE. BATH GIVEN UPON ARRIVAL.
[2024-02-19] VITALS (7 sets, daily range): BP systolic 103–127; BP diastolic 63–83; PULSE 65–83; RESP 16–18; TEMP 36.6–37.6; O2SAT 94–100; BMI 31.1; BMI 31.2
[2024-02-19] MEDS: CEFTRIAXONE 1 GM 1 GM in 0.9 % SODIUM CHLORIDE 50 ML IV ×2 (00:06→21:44)
[2024-02-19] MEDS: 0.9 % SODIUM CHLORIDE 1000ML 1,000 ML 50 ML IV (00:06)
--- NOTE | 2024-02-19 04:43 | PC.NURSE ---
pATIENT REMAINS NON VERBAL. FOLLOWS COMMANDS. VITAL SIGNS STABLE. NO FEVERS. NO INDICATIONS OF PAIN. PUREWICK IN USE PATIENT IS BEDRIDDEN AT THIS TIME AND INCONTINENT WITH LABIAL EXCORIATION. REMAINS NPO FOR MRI WHICH IS NEEDED TO R/O NEW STROKE. WILL NEED CONSENT BY FAMILY MEMBER. RIGHT FOOT MILDLY EDEMATOUS FROM FRACTURE. PATIENT'S PERSONAL W/C AT BEDSIDE.
--- NOTE | 2024-02-19 05:33 | PC.NURSE ---
patient talking now for the first time lane. asked for another blanket. said she was , fine . Denies pain except when right foot is moved.
[2024-02-19 05:38] LABS: POC Glucose,Bedside 108 (70-110)
--- NOTE | 2024-02-19 07:43 | HMH.PHAINT1 ---
Pharmacy Intervention Comments: MEDICATION RECONCILIATION COMPLETED ON PATIENT USING EXTERNAL FILL HISTORY FROM PHARMACY. -ROCCO MAN, JESSID
--- NOTE | 2024-02-19 07:57 | MR_ITS ---
FINAL REPORT TECHNIQUE: Multiplanar MR without contrast CLINICAL HISTORY: CVA r/o stroke FINDINGS: There is restricted diffusion involving much of the frontal lobe and scattered areas within the left frontotemporal lobe compatible with a left JUANA acute infarct with partial involvement of the left MCA territory. There is midline shift of the frontal lobes related to underlying edema. Midline shift measures up to 7 mm to the right. There is no evidence of hemorrhage. The ventricles are intact. IMPRESSION: Acute left JUANA infarct with multifocal partial left MCA infarcts. No associated hemorrhage. Reviewed, Interpreted and Dictated by Nelli Hampton MD Transcribed by Joyce Pace Authenticated and . [facility]
[2024-02-19] MEDS: DOCUSATE SODIUM 100 MG CAPSULE PO (08:17)
[2024-02-19] MEDS: PANTOPRAZOLE 40MG TABLET 40 MG PO (08:17)
--- NOTE | 2024-02-19 09:55 | HMH.OTEV ---
OT Inpatient Evaluation Rehab OT IP Evaluation Start: 02/18/24 23:29 Freq: ONCE Status: Active Protocol: Document 02/19/24 09:[facility] (Rec: 02/19/24 09:54 [facility] [id number]) Rehab OT IP Assessment Subjective History History of present illness: This is a 53-year-old female obese with past medical history of non-insulin- dependent type 2 diabetes, developmental disability on baseline, previous stroke, hypertension, ICAO status post stent on the left. History is limited because of the patient current condition, patient has been nonverbal since November/2023, when was found to have acute left frontal and parietal lobe stroke. Patient has right upper extremity neglect and aphasia as an neurodeficit. Patient seems to understand simple commands, however has been nonverbal since prior stroke, brother contributed with the history. At the time of this assessment family have left for the day. Documentation per ED shows that patient has presented to the ED for evaluation at right ankle pain, after apparent fall at home. On arrival she was found to be tachycardiac, and on apparent altered mental status. Patient was also febrile. Admitted for inpatient management on 2023. PLOF: Pt was unable to give thorough PLOF with changing answers each time asked a simple question. Pt did report they live with family, but when asked if needed assistance for ADL/IADL completion, pt was unable to give full report. Subjective Ouch. Pt was supine in bed when therapy arrived. No family or caregivers were present during initial OT eval. Pt was not able to answer orientation questions, but did acknowledge therapy. Pt was agreeable to participate in initial OT eval this morning. Pt went from supine to EOB with Min Assist x2. Pt then sat on EOB with CGA for ~3 minutes while therapy tried to ask pt question about PLOF and donned socks to attempt a sit to stand transfer in NWB to R LE. Pt was unable to provide report and did not want to attempt to transfer. Pt then presented with behaviors of frustration making clenched fist, kicking of the bedside with L LE, and facial and verbal expressions. Pt reported they wanted to lay back in bed. Pt then went from EOB to supine with Min Assist x2. Pt was left with call light and all other needs within reach in bed. Care management was notified about pt's condition of not being able to report to therapy PLOF and their ability to complete bed mobility. Objective Patient Orientation Time Right Upper Extremity Gross ROM Sev Limitation >75% Left Upper Extremity Gross ROM WFL Shoulder ROM Limitations Muscle Weakness,Muscle Tone Elbow ROM Limitations Muscle Weakness,Muscle Tone Wrist Limitations of Range of Motion Contracture,Muscle Weakness, Muscle Tone Bed Mobility bed mobility-scooting,bed mobility - supine/sit Assist Level Minimal x 2 (25% assist) Lower Body Dressing Ability Unable/dependent Decrease in Endurance Yes Rehab OT IP prob,goals,plan Problems Date of Evaluation: 02/19/24 OT IP Problems Bed Mobility,Transfers,Balance ,Self care,Safety Rehab Potential Rehab Potential Good Equipment Needs Assistive Devices Standard Walker,Wheelchair Plan OT intervention Plan Bed Mobility,Transfers,Balance ,Self care,Safety,Therapeutic Exercise OT Plan Frequency Daily Duration LOS Discharge Goals Bed Mobility Ability Assistance x1 Sit to Stand Chair Transfer Ability Moderate x 1 (50% assist) Chair Transfer Ability Minimal x 2 (25% assist) Chair Transfer Technique Stand Pivot Lower Body Dressing Ability Moderate Assistance Upper Body Dressing Ability Minimal Assistance Bathing Ability Maximum Assistance Performing Toilet Hygiene Ability Moderate Assistance Overall Commode/Toilet Transfer Ability Moderate Assistance Commode/Toilet Transfer Technique Stand Pivot Decrease in Endurance No Discharge Plan OT Discharge Plan At this time, it is recommended based on pt's condition and not having a full PLOF report that pt goes to rehab to address deficits in occupational performance and strength and endurance with skilled OT services. All this is pending dr orders and medical status. While at this facility, pt will continue to be seen to address occupational deficits, endurance, and strength with skilled OT services. Eval Complexity Eval Charge Codes 12298 - Moderate Complexity PHYSICIAN CERTIFICATION: I certify the specified therapy services for Matilda Solsi are required, authorized, and reviewed every 30 days.
--- NOTE | 2024-02-19 10:00 | HMH.PTEV ---
Physical Therapy Evaluation Rehab PT IP Evaluation Start: 02/18/24 23:29 Freq: ONCE Status: Active Protocol: Document 02/19/24 09:52 MIGUEL (Rec: 02/19/24 10:00 MIGUEL [id number]) Subjective/History History History Per H&P: This is a 53-year-old female obese with past medical history of non-insulin- dependent type 2 diabetes, developmental disability on baseline, previous stroke, hypertension, ICAO status post stent on the left. History is limited because of the patient current condition, patient has been nonverbal since November/2023, when was found to have acute left frontal and parietal lobe stroke. Patient has right upper extremity neglect and aphasia as an neurodeficit. Patient seems to understand simple commands, however has been nonverbal since prior stroke, brother contributed with the history. At the time of this assessment family have left for the day. Documentation per ED shows that patient has presented to the ED for evaluation at right ankle pain, after apparent fall at home. On arrival she was found to be tachycardiac, and on apparent altered mental status. Patient was also febrile. Admitted for inpatient management Subjective Subjective Pt is aphasic and unable to provide accurate history. Pt able to say Yes and No but does not provide consistent answers. Confirm history with CM. New diagnosis of cancer in past 12 No months? Rehab PT IP Eval Objective Appearance Patient Behavior Anxious,Guarded Difficulty following instructions mild Speech Pattern Aphasic Ambulation Patient Able to Ambulate No Balance Ability to Arise Able, uses arms to help Sitting Balance Steady, safe Transfers Bed Transfer Ability Minimal x 1 (25% assist) Rehab PT IP prob,goals,plan Problems Date of Evaluation: 02/19/24 PT IP Problems Bed Mobility,Transfers,Gait, Balance,Self care,Safety Rehab Potential Rehab Potential Good Equipment Needs Assistive Devices Rolling / Wheeled Walker, Wheelchair Plan PT Intervention Plan Bed Mobility,Transfers,Gait, Balance,Safety,Therapeutic Exercise Other Intervention Plan 1-2 times PT Plan Frequency Daily Duration LOS Discharge Goals Bed Transfer Ability Supervision/Stand by Sit to Stand Chair Transfer Ability Moderate x 2 (50% assist) Discharge Plan PT Discharge Plan Initial physical therapy evaluation performed. Pt demo' d guarded behavior with mobility and became visibly irritated with request to demo stand or transfer. Pt unable to perform mobility safely at this time d/t pain and impaired command following. Pt pointed to w/c but when asked to demo transfer to w/c, pt displayed irritated behavior. Pt agreeable to return to supine and was left with bed alarm armed and needs in reach . Patient presents below baseline at this time in functional mobility, transfers , and strength. Pt not safe to return home at this time d/t current level of functional mobility. PT recommending short-term rehabilitation stay upon d/c from [facility]. Pt would benefit from skilled PT while at [facility] to prevent further functional decline and maximize safety with mobility. Eval Complexity Eval Charge Codes 03573 - High Complexity PHYSICIAN CERTIFICATION: I certify the specified therapy services for Matilda Solis are required, authorized, and reviewed every 30 days.
--- NOTE | 2024-02-19 10:02 | CARE MANAGER ---
Addendum entered by Shiloh Otto 02/22/24 16:04: I attempted to contact patient's brother regarding discharge plans: no answer and no VM set up at this time. Addendum entered by Janna Mota RN 02/22/24 14:47: Patient has been accepted [facility]. Plan is for discharge there tomorrow morning. Addendum entered by Shiloh Otto 02/22/24 07:34: Annabelle young/ [facility] is currently reviewing patient information. Addendum entered by Janna Mota RN 02/19/24 17:36: Spoke with brother this afternoon. Patient lives with him and up until a couple weeks ago was reportedly able to stay home alone while he was at work, someone has been staying with her since decline. Per PT/OT, patient most adequate for rehab upon discharge. Brother is agreeable for SNF placement. He would really like her to stay local if possible. [facility] fax[facility] to [facility] (who has declined). Awaiting response from [facility]. Original Note: Patient apparently lives with her brother and has had a CVA in the past. I am unsure of her baseline at this time. I have attempted to call her brother to discuss discharge planning, but he did not answer his phone and has no VM. I will continue to try to make contact. Per PT/OT this morning, patient would likely benefit from STR, again... unknown baseline.
[2024-02-19 11:20] LABS: POC Glucose,Bedside 104 (70-110)
--- NOTE | 2024-02-19 11:27 | XR_ITS ---
FINAL REPORT CLINICAL HISTORY: eval for metal, pre-MRI FINDINGS: SINGLE VIEW ABDOMEN A single view of the abdomen was obtained. There is a nonobstructive bowel gas pattern. There are no abnormally dilated loops of small bowel. No abnormal calcifications are identified. There is density within the pelvis consistent with excreted contrast from recent CT. No radiopaque foreign body is identified. IMPRESSION: Nonobstructive bowel gas pattern. No radiopaque foreign body as clinically questioned. Reviewed, Interpreted and Dictated by Nelli Hampton MD Transcribed by Elaina Perez Authenticated and [facility]
[2024-02-19] MEDS: EZETIMIBE 10MG TABLET 10 MG PO (11:37)
[2024-02-19] MEDS: METFORMIN 500MG TABLET 500 MG PO (11:37)
[2024-02-19] MEDS: ASPIRIN EC 81MG TABLET 81 MG PO (11:37)
[2024-02-19] MEDS: LORATADINE 10MG TABLET 10 MG PO (11:37)
[2024-02-19] MEDS: CLOPIDOGREL 75MG TAB 75 MG PO (11:37)
[2024-02-19] MEDS: CITALOPRAM 20MG TABLET 20 MG PO (11:37)
--- NOTE | 2024-02-19 12:22 | EXP.ACUTE.PN ---
Subjective *Date: 02/19/24 *Time: 14:01 Interval history: Patient appears to understand questions and examiner. Able to answer with simple yes no answers. Unable to give much detail. Has expressive aphasia. Right-sided deficits noted with contracture of the right upper arm and weakness in right leg. Right paper cup machine tender to exam. Stable on room air. No nausea or vomiting. Afebrile. Medical Exam Vital signs and Labs for Last 24 Hours: Vital Signs Temp Pulse Pulse Resp BP BP Pulse Ox 02/19/24 10:44 02/19/24 08:00 75 02/19/24 08:00 02/19/24 08:00 99.6 F 83 18 127/83 99 02/19/24 07:49 02/19/24 06:26 02/19/24 05:00 02/19/24 04:00 97.8 F 75 16 122/78 100 02/19/24 04:00 79 02/19/24 03:00 02/19/24 00:52 02/19/24 00:00 76 02/19/24 00:00 95 02/19/24 00:00 76 18 119/76 95 02/18/24 23:21 98.8 F 90 16 130/78 02/18/24 21:20 90 130/88 96 02/18/24 21:10 90 137/94 H 97 02/18/24 21:00 94 H 141/95 H 98 02/18/24 20:54 98 H 148/95 H 96 02/18/24 20:00 102 H 146/93 H 97 02/18/24 19:36 101.4 F H 105 H 20 136/91 H 96 O2 Del Method 02/19/24 10:44 Room Air 02/19/24 08:00 02/19/24 08:00 Room Air 02/19/24 08:00 Room Air 02/19/24 07:49 Room Air 02/19/24 06:26 Room Air 02/19/24 05:00 Room Air 02/19/24 04:00 Room Air 02/19/24 04:00 02/19/24 03:00 Room Air 02/19/24 00:52 Room Air 02/19/24 00:00 02/19/24 00:00 Room Air 02/19/24 00:00 Room Air 02/18/24 23:21 Room Air 02/18/24 21:20 Room Air 02/18/24 21:10 Room Air 02/18/24 21:00 Room Air 02/18/24 20:54 Room Air 02/18/24 20:00 02/18/24 19:36 Room Air Intake and Output 02/18/24 02/19/24 02/19/24 23:59 07:59 15:59 Intake Total 336 / 336 Output Total 300 / 300 Balance Intake: Intake, Total IV Amount 336 / 336 0.9 % Sodium Chloride 1000ML 1, 286 / 286 000 ml @ 50 mls/hr IV .Q20H [facility] Rx#:[id number] Ceftriaxone 1 gm 1 gm In 0.9 % 50 / 50 Sodium Chloride 50 ml @ 100 mls /hr IV Q24H [facility] Rx#:[id number] Output: Output, Urine Amount 300 / 300 Other: Number of Unmeasured Voids 1 0 Weight 63.503 kg 72.121 kg Patient Weight 02/19/24 23:59 Weight 72.121 kg Laboratory Results - last 24 hr 02/18/24 20:35: WBC 7.3, RBC 4.88, Hgb 14.3, Hct 44.8, MCV 91.7, MCH 29.2, MCHC 31.9, RDW 15.3, Plt Count 218, MPV 8.5, Neut % (Auto) 69.4, Lymph % (Auto) 20.7, [place] % (Auto) 7.7, Eos % (Auto) 1.4, Baso % (Auto) 0.8, Neut # (Auto) 5.0, Lymph # (Auto) 1.5, [place] # (Auto) 0.6, Eos # (Auto) 0.1, Baso # (Auto) 0.1, Sodium 132 L, Potassium 3.5, Chloride 101, Carbon Dioxide 19 L, Anion Gap 15.5 H, BUN 13, Creatinine 0.70, Estimated Creat Clear 95, Estimated GFR 88, Est GFR ( Amer) 107, Glucose 120 H, Lactate 1.1, Calcium 9.3, Magnesium 1.8, Total Bilirubin 0.9, AST 34, ALT 17, Alkaline Phosphatase 97, Total Protein 8.0, Albumin 4.4, Globulin 3.6 H, Albumin/Globulin Ratio 1.2, Procalcitonin 0.042 06/20/24 22:01: Urine Color Yellow, Urine Appearance Clear, Urine pH 6.0, Ur Specific [place] <= 1.005, Urine Protein Negative, Urine Glucose (UA) Negative, Urine Ketones Negative, Urine Blood Trace-i, Urine Nitrate Negative, Urine Bilirubin Negative, Urine Urobilinogen 0.2, Ur Leukocyte Esterase 1+ A, Urine RBC Occasional, Urine WBC 5-10, Ur Squamous Epith Cells Occasional, Urine Bacteria 2+ 02/19/24 05:31: POC Glucose 108 02/19/24 11:13: POC Glucose 104 I & O for Labs for Last 24 Hours: Intake & Output 02/16/24 02/17/24 02/18/24 02/19/24 23:59 23:59 23:59 23:59 Intake Total 336 / 336 Output Total 300 / 300 Balance Weight 63.503 kg 72.121 kg Constitutional: Present no acute distress, obese, chronically ill appearing and cooperative Head: Present atraumatic and normocephalic ENT: Present normal exam Respiratory: Present normal respiratory effort; Absent rhonchi, stridor, wheezes or crackles Cardiac: Present Reg Rate and Rhythm GI: Present soft and normal bowel sounds; Absent distention or tenderness Comment:: Contracture of right upper extremity, limited range of motion. Unable to use fingers. Can raise arm and shoulder. Right leg with strength in thigh, unable to wiggle toes. Strength 5/5 in left upper and lower extremity. Skin: Present intact; Absent erythema Neuro: Present alert, awake and moves all extremities Comment:: Unable to evaluate orientation due to neurologic deficit; right-sided deficits, left side with normal strength Assessment and Plan *Assessment and plan (1) Metatarsal fracture: Status: Acute Qualifiers: Encounter type: initial encounter Fracture alignment: nondisplaced Fracture type: closed Laterality: right Metatarsal bone: fifth Qualified Code(s): S92.354A - Nondisplaced fracture of fifth metatarsal bone, right foot, initial encounter for closed fracture Category: Medical Code(s): S92.309A - Fracture of unspecified metatarsal bone(s), unspecified foot, initial encounter for closed fracture (2) Aphasia as late effect of cerebrovascular accident: Status: Acute Category: Medical Code(s): I69.320 - Aphasia following cerebral infarction (3) UTI (urinary tract infection): Status: Acute Qualifiers: Hematuria presence: with hematuria Urinary tract infection type: site unspecified Qualified Code(s): N39.0 - Urinary tract infection, site not specified; R31.9 - Hematuria, unspecified Category: Medical Code(s): N39.0 - Urinary tract infection, site not specified (4) Stroke: Status: Acute Qualifiers: CVA mechanism: occlusion Laterality of affected vessel: left Precerebral and cerebral artery: cerebellar artery Qualified Code(s): I63.542 - Cerebral infarction due to unspecified occlusion or stenosis of left cerebellar artery Category: Medical Code(s): I63.9 - Cerebral infarction, unspecified (5) Diabetes: Status: Acute Qualifiers: Diabetes mellitus type: type 2 Diabetes mellitus tank terminal gauger insulin use: without tank terminal gauger use Diabetes mellitus complication status: with other specified complication Qualified Code(s): E11.69 - Type 2 diabetes mellitus with other specified complication Category: Medical Code(s): E11.9 - Type 2 diabetes mellitus without complications (6) HTN (hypertension): Status: Acute Qualifiers: Hypertension type: unspecified Qualified Code(s): I10 - Essential (primary) hypertension Category: Medical Code(s): I10 - Essential (primary) hypertension (7) Tobacco abuse: Status: Acute Category: Medical Code(s): Z72.0 - Tobacco use Plan 53-year-old female obese with past medical history of gxw-[id number]-jdyznsnin type 2 diabetes, previous stroke, hypertension, ICAO status post stent on the left, unclear baseline, apparently ambulatory, with right upper arm deficit and aphasia. Coming for evaluation of right ankle pain after fall at home, fever, and altered mental status, according to family less responsive. Initial interventions include crystalloid bolus Toradol Tylenol. Initial workup reviewed by me shows that her hematologic labs are nonactionable however she has urinary tract infection. Chest x-ray shows no acute processes however CT scan shows extensive previous strokes. She has a subacute left JUANA territory stroke and possible extension of her left MCA stroke. No neurological interventions. Plain x-ray showed right fifth metatarsal fracture nondisplaced. ED request admission for inpatient management. Medicine agreed to admit. MRI obtained this morning. Therapy working with patient. Continues to require inpatient management. Problems addressed as follows: -Right fifth metatarsal fracture. Avulsion type fracture nondisplaced. Requiring only symptomatic treatments -Nondisplaced. Will place postop boot/shoe. Weightbearing as tolerated. Plan for follow-up with orthopedics in 2 weeks to monitor healing UTI -Urinalysis grossly abnormal. Culture still pending. Continue ceftriaxone 1 g daily for possible UTI. Further management pending culture and sensitivity -Aphasia as a late effect of CVA -Acute on subacute stroke -MRI obtained, per my review appears to show some acute on chronic changes in the left JUANA territory. -Continue medical management with aspirin 81 mg, and Plavix 75 mg daily. -Initiate Lipitor 40 mg nightly and Plavix. - Neurocheck every 4. -PT, OT, speech working with patient daily -Case management assisting with placement -NIDDM: Accu-Chek before meals; on sliding scale Last A1c 5.9 reviewed from outside previous records -Resume metformin 500 mg daily Hypertension On losartan and hydrochlorothiazide, permissive hypertension Tobacco user: On nicotine patch Lovenox for DVT prophylaxis Protonix Full code
[2024-02-19 14:15] LABS: Basophils % 0.6 % (0.1-2.0); Eosinophils # 0.1 K/mm3 (0.0-0.4); Eosinophils % 2.1 % (0.1-12.0); Hematocrit 39.4 % (37.0-47.0); Lymphocytes # 0.9 K/mm3 (0.7-4.5); Lymphocytes % 17.4 % (10-50); Mean Corpuscular HGB Conc 31.5 g/dL (31.8-35.4); Mean Corpuscular Hemoglobin 29.3 pg (27.0-31.2); Mean Corpuscular Volume 92.9 fl (81-99); Mean Platelet Volume 9.2 fl (7.4-10.4); Monocytes # 0.3 K/mm3 (0.1-1.0); Monocytes % 6.4 % (1.7-9.3); Neutrophils # 3.6 K/mm3 (1.8-7.8); Neutrophils % 73.5 % (37.0-80.0); Platelet Count 218 K/mm3 (142-424); Red Blood Count 4.25 M/mm3 (4.20-5.40); Red Cell Distribution Width 15.5 % (11.5-17.5); White Blood Count 4.9 K/mm3 (4.8-10.8)
[2024-02-19 14:18] LABS: Chloride 102 mmol/L (98-107); Sodium 132 mmol/L (136-145)
[2024-02-19 14:19] LABS: Potassium 3.2 mmoL/L (3.5-5.1)
[2024-02-19 14:21] LABS: Alanine Aminotransferase 20 U/L (12-78); Albumin Level 3.6 g/dl (3.5-5.0); Albumin/Globulin Ratio 1.1 (1.1-1.8); Alkaline Phosphatase 77 U/L (38-126); Anion Gap 10.2 mEq/L (5-15); Aspartate Amino Transferase 26 U/L (14-36); Bilirubin,Total 0.5 mg/dl (0.2-1.3); Blood Urea Nitrogen 12 mg/dl (7-17); Calcium 8.7 mg/dl (8.4-10.2); Carbon Dioxide 23 mmol/L (22.0-30.0); Creatinine Clearance Estimated 95 mL/min (50-200); Estimated Glomerular Filt Rate 76 ml/min (>60); GFR (African American) 92 ML/MIN (>60); Globulin 3.3 g/dL (1.3-3.2); Glucose 123 mg/dl (74-100); Total Protein,Serum 6.9 g/dl (6.3-8.2)
[2024-02-19 14:22] LABS: Hemoglobin 12.4 g/dL (12.2-16.2); Magnesium 1.9 mg/dl (1.6-2.3)
--- NOTE | 2024-02-19 15:35 | HMH.SLDYSPHA ---
Speech & Language Evaluation Speech/Language Dysphagia Evaluation Start: 02/19/24 14:54 Freq: ONCE Status: Active Protocol: Document 02/19/24 14:54 SERENA (Rec: 02/19/24 15:32 SERENA [id number]) Co-signed By ST Neftali Dysphagia Assess/Goals/Plan Assessment Date of Evaluation: 02/19/24 Evaluation Type Initial Certification Assessment/Problems stroke protocol per MD order. 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 If pt' s cognitive-linguistic status and/or swallow function and efficiency are observed to decline, INSPECTOR MACHINE CUT GLASS will plan to fu. Recommendations PHYSICIAN CERTIFICATION: The specified therapy services are required, authorized, and reviewed every 30 days. Diet Recommendations Mechanical Soft Liquid Type Recommendations Normal/Thin SL Swallow Guidelines Alt bite w/sip thru meal, Standard Aspiration Prec.,Eat at slow rate,Oral Care Education,Oral care pre/post meals Dysphagia Swallow Precautions/Strategies Sitting Upright (90 deg),Small Bites and Sips,Alternate Liquids/Solids Plan Pt/Guardian verbally ack understanding Yes of dx/prognosis/goals G -code Required No [employer]ment [employer] Cutter Hand Goals Diet Mechanical Soft-chopped with Liquids Thin Liquids Education Instructions provided INSPECTOR MACHINE CUT GLASS provided education re: CSE overview and diet recommendations to pt. INSPECTOR MACHINE CUT GLASS reviewed results of CSE and diet recommendation to nursing and care management. Pt/Caregiver able to recall information Able to recall/restate Reinforcement needed No Speech & Language HPI History Present Illness Description of Patient Problem INSPECTOR MACHINE CUT GLASS copied and pasted from pt' s H&P: This is a 53-year-old female obese with past medical history of non-insulin- dependent type 2 diabetes, developmental disability on baseline, previous stroke, hypertension, ICAO status post stent on the left. History is limited because of the patient current condition, patient has been nonverbal since November/2023, when was found to have acute left frontal and parietal lobe stroke. Patient has right upper extremity neglect and aphasia as an neurodeficit. Patient seems to understand simple commands, however has been nonverbal since prior stroke, brother contributed with the history. At the time of this assessment family have left for the day. Documentation per ED shows that patient has presented to the ED for evaluation at right ankle pain, after apparent fall at home. On arrival she was found to be tachycardiac, and on apparent altered mental status. Patient was also febrile. Admitted for inpatient management Language Primary Language [place]ian [place] Lang/Spoken in Home Vincentian General Information General Current Food Consistancy NPO Dentition Edentulous Patient Orientation Person Ability to Follow Directions Fair Communication Ability Moderate Impairment Dysphagia:Food Presentation Evaluation Food Type Pureed,Mechanical Soft,Regular ,Liquid,Pudding Dysphagia Evaluation Summary A CSE was administered to pt while sitting upright in bed on this date. INSPECTOR MACHINE CUT GLASS presented pt with the following consistencies: ice chips x2, thin liquid (water) via straw and open cup x2, pudding x2, puree (applesauce) x2, and mechanical soft (Nutrigrain bar) x2. Each consistency trialed x2-3 to assess fatigue . Pt exhibited no overt s/sx of aspiration or penetration on any consistency trialed. Pt was observed to be edentulous , so regular foods were not trialed. Oral residue observed on mechanical soft trials, which was cleared by x1 liquid wash. Recommended diet of mechanical soft '2 poor mastication and thin liquids. Further speech services are not warranted at this time. INSPECTOR MACHINE CUT GLASS will fu is pt exhbits decline in cognitive- linguistic status or swallow function and efficiency. Stroke Dysphagia Assessment PHYSICIAN CERTIFICATION: I certify the specified therapy services for Matilda Solis are required, authorized, and reviewed every 30 days.
[2024-02-19 15:56] LABS: POC Glucose,Bedside 126 (70-110)
--- NOTE | 2024-02-19 16:45 | PC.NURSE ---
PT IS RESTING IN BED. PT IS ALERT TO PLACE AND TIME BUT WAS UNABLE TO VOICE NAME AND THIS MORNING. PT WILL ANSWER SIMPLE YES OR NO QUESTIONS AND FOLLOW SIMPLE COMMANDS. RIGHT SIDED WEAKNESS NOTED. PT ASSIST WITH TURNING AND REPOSITIONING. SPEECH STATED PT HAD NO ISSUES WITH SWALLOWING. LUNG SOUNDS HAVE SCATTERED WHEEZES. ABDOMEN SOFT/NON TENDER WITH ACTIVE BOWEL SOUNDS. NO SWELLING NOTED TO BLE. PURWICK IN PLACE. WILL CONTINUE TO MONITOR.
[2024-02-19] MEDS: ACETAMINOPHEN 325MG TAB 650 MG PO (17:44)
[2024-02-19] MEDS: ATORVASTATIN 40MG TABLET 40 MG PO (21:44)
[2024-02-19 21:57] LABS: POC Glucose,Bedside 111 (70-110)
[2024-02-20] VITALS (8 sets, daily range): BP systolic 111–126; BP diastolic 61–73; PULSE 70–90; RESP 13–16; TEMP 36.8–37.7; O2SAT 94–97; BMI 31.4
[2024-02-20 06:48] LABS: POC Glucose,Bedside 124 (70-110)
[2024-02-20] MEDS: CITALOPRAM 20MG TABLET 20 MG PO (09:33)
[2024-02-20] MEDS: ASPIRIN EC 81MG TABLET 81 MG PO (09:33)
[2024-02-20] MEDS: PANTOPRAZOLE 40MG TABLET 40 MG PO (09:33)
[2024-02-20] MEDS: DOCUSATE SODIUM 100 MG CAPSULE PO (09:33)
[2024-02-20] MEDS: METFORMIN 500MG TABLET 500 MG PO (09:33)
[2024-02-20] MEDS: EZETIMIBE 10MG TABLET 10 MG PO (09:33)
[2024-02-20] MEDS: CLOPIDOGREL 75MG TAB 75 MG PO (09:33)
[2024-02-20] MEDS: LORATADINE 10MG TABLET 10 MG PO (09:33)
[2024-02-20 11:40] LABS: POC Glucose,Bedside 103 (70-110)
--- NOTE | 2024-02-20 13:34 | P.PN_ITS ---
Subjective *Date: 02/20/24 *Time: 15:48 Interval history: Patient did well over night. No acute events. Blood pressure remained stable. No óscar fever. On room air. Tolerating p.o. intake. Medical Exam Vital signs and Labs for Last 24 Hours: Vital Signs Temp Pulse Pulse Resp BP Pulse Ox O2 Del Method 02/20/24 11:00 Room Air 02/20/24 09:00 Room Air 02/20/24 08:00 Room Air 02/20/24 08:00 80 02/20/24 08:00 99.0 F 81 13 111/66 97 Room Air 02/20/24 06:43 Room Air 02/20/24 05:00 Room Air 02/20/24 04:00 77 02/20/24 04:00 98.3 F 83 16 120/73 95 Room Air 02/20/24 03:00 Room Air 02/20/24 01:00 Room Air 02/20/24 00:00 75 02/19/24 23:00 Room Air 02/19/24 21:00 Room Air 02/19/24 20:00 96 Room Air 02/19/24 20:00 75 02/19/24 19:45 98.8 F 83 16 103/63 L 96 02/19/24 18:24 Room Air 02/19/24 16:32 Room Air 02/19/24 16:00 80 02/19/24 16:00 99 F 65 18 121/75 94 L Room Air 02/19/24 15:00 Room Air Intake and Output 02/19/24 02/20/24 02/20/24 23:59 07:59 15:59 Intake Total 280 / 946 50 / 390 340 / 390 Output Total 0 / 800 600 / 775 175 / 775 Balance 280 / 146 -550 / -385 165 / -385 Intake: Intake, Oral Amount 280 / 560 340 / 340 Intake, Total IV Amount 50 / 50 Ceftriaxone 1 gm 1 gm In 0.9 % 50 / 50 Sodium Chloride 50 ml @ 100 mls /hr IV Q24H [facility] Rx#:[id number] Output: Output, Urine Amount 0 / 800 600 / 775 175 / 775 Other: Number of Unmeasured Voids 0 0 0 Weight 72.711 kg Patient Weight 02/20/24 23:59 Weight 72.711 kg Laboratory Results - last 24 hr 02/19/24 14:05: WBC 4.9 D, RBC 4.25, Hgb 12.4 D, Hct 39.4, MCV 92.9, MCH 29.3, MCHC 31.5 L, RDW 15.5, Plt Count 218, MPV 9.2, Neut % (Auto) 73.5, Lymph % (Auto) 17.4, [place] % (Auto) 6.4, Eos % (Auto) 2.1, Baso % (Auto) 0.6, Neut # (Auto) 3.6, Lymph # (Auto) 0.9, [place] # (Auto) 0.3, Eos # (Auto) 0.1, Baso # (Auto) 0.0, Sodium 132 L, Potassium 3.2 L, Chloride 102, Carbon Dioxide 23, Anion Gap 10.2, BUN 12, Creatinine 0.80, Estimated Creat Clear 95, Estimated GFR 76, Est GFR ( Amer) 92, Glucose 123 H, Calcium 8.7, Magnesium 1.9, Total Bilirubin 0.5, AST 26, ALT 20, Alkaline Phosphatase 77, Total Protein 6.9, Albumin 3.6 D, Globulin 3.3 H, Albumin/Globulin Ratio 1.1 02/19/24 15:49: POC Glucose 126 H 02/19/24 21:45: POC Glucose 111 H 02/20/24 06:39: POC Glucose 124 H 02/20/24 11:32: POC Glucose 103 I & O for Labs for Last 24 Hours: Intake & Output 02/17/24 02/18/24 02/19/24 02/20/24 23:59 23:59 23:59 23:59 Intake Total 896 / 946 390 / 390 Output Total 300 / 800 775 / 775 Balance 596 / 146 -385 / -385 Weight 63.503 kg 72 kg 72.711 kg Microbiology Reports for the Last 24 Hours: Microbiology 02/18/24 22:01 Urine,Clean Catch Urine Culture - Preliminary Constitutional: Present no acute distress, obese, chronically ill appearing and cooperative Head: Present atraumatic and normocephalic ENT: Present normal exam Respiratory: Present normal respiratory effort; Absent rhonchi, stridor, wheezes or crackles Cardiac: Present Reg Rate and Rhythm GI: Present soft and normal bowel sounds; Absent distention or tenderness Comment:: Contracture of right upper extremity, limited range of motion. Unable to use fingers. Can raise arm and shoulder. Right leg with strength in thigh, unable to wiggle toes. Strength 5/5 in left upper and lower extremity. Right foot in postop shoe Skin: Present intact; Absent erythema Neuro: Present alert, awake and moves all extremities Comment:: Unable to evaluate orientation due to neurologic deficit; right-sided deficits, left side with normal strength Assessment and Plan *Assessment and plan (1) Metatarsal fracture: Status: Acute Qualifiers: Encounter type: initial encounter Fracture alignment: nondisplaced Fracture type: closed Laterality: right Metatarsal bone: fifth Qualified Code(s): S92.354A - Nondisplaced fracture of fifth metatarsal bone, right foot, initial encounter for closed fracture Category: Medical Code(s): S92.309A - Fracture of unspecified metatarsal bone(s), unspecified foot, initial encounter for closed fracture (2) Aphasia as late effect of cerebrovascular accident: Status: Acute Category: Medical Code(s): I69.320 - Aphasia following cerebral infarction (3) UTI (urinary tract infection): Status: Acute Qualifiers: Hematuria presence: with hematuria Urinary tract infection type: site unspecified Qualified Code(s): N39.0 - Urinary tract infection, site not specified; R31.9 - Hematuria, unspecified Category: Medical Code(s): N39.0 - Urinary tract infection, site not specified (4) Stroke: Status: Acute Qualifiers: CVA mechanism: occlusion Laterality of affected vessel: left Precerebral and cerebral artery: cerebellar artery Qualified Code(s): I63.542 - Cerebral infarction due to unspecified occlusion or stenosis of left cerebellar artery Category: Medical Code(s): I63.9 - Cerebral infarction, unspecified (5) Diabetes: Status: Acute Qualifiers: Diabetes mellitus type: type 2 Diabetes mellitus nursing home insulin use: without nursing home use Diabetes mellitus complication status: with other spe cified complication Qualified Code(s): E11.69 - Type 2 diabetes mellitus with other specified complication Category: Medical Code(s): E11.9 - Type 2 diabetes mellitus without complications (6) HTN (hypertension): Status: Acute Qualifiers: Hypertension type: unspecified Qualified Code(s): I10 - Essential (primary) hypertension Category: Medical Code(s): I10 - Essential (primary) hypertension (7) Tobacco abuse: Status: Acute Category: Medical Code(s): Z72.0 - Tobacco use Plan 53-year-old female obese with past medical history of ayl-bbgzgrt-mxzrrbtbp type 2 diabetes, previous stroke, hypertension, ICAO status post stent on the left, unclear baseline, apparently ambulatory, with right upper arm deficit and aphasia. Coming for evaluation of right ankle pain after fall at home, fever, and altered mental status, according to family less responsive. Initial interventions include crystalloid bolus Toradol Tylenol. Initial workup reviewed by me shows that her hematologic labs are nonactionable however she has urinary tract infection. Chest x-ray shows no acute processes however CT scan shows extensive previous strokes. She has a subacute left JUANA territory stroke and possible extension of her left MCA stroke. No neurological interventions. Plain x-ray showed right fifth metatarsal fracture nondisplaced. ED request admission for inpatient management. Medicine agreed to admit. Awaiting placement. Working with therapy daily. Continues to require inpatient manag ement. Problems addressed as follows: -Right fifth metatarsal fracture. Avulsion type fracture nondisplaced. Requiring only symptomatic treatments -Nondisplaced. In postop shoe. Weightbearing as tolerated. Plan for follow-up with orthopedics in 2 weeks to monitor healing UTI -Urinalysis grossly abnormal. Culture still pending. Patient lost IV, will transition to levofloxacin 750 mg daily for empiric coverage. Further management pending culture and sensitivity Aphasia as a late effect of CVA Acute on subacute stroke -MRI obtained 02/18 shows some acute on chronic changes in the left JUANA territory. -Continue medical management with aspirin 81 mg, and Plavix 75 mg daily. -Initiate Lipitor 40 mg nightly and Plavix. - Neurocheck every 4. -PT, OT, speech working with patient daily -Case management assisting with placement -NIDDM: Accu-Chek before meals; on sliding scale Last A1c 5.9 reviewed from outside previous records -metformin 500 mg daily Hypertension On losartan and hydrochlorothiazide, permissive hypertension Tobacco user: On nicotine patch Lab Levay today, I have ordered CBC, BMP, magnesium for the morning Lovenox for DVT prophylaxis Protonix Full code
--- NOTE | 2024-02-20 14:43 | PC.NURSE ---
Addendum entered by Beckie Gonzales RN 02/20/24 16:54: per brissa orta to stop [facility]. Original Note: pt pulled out iv. notified and okay with no iv access at this time.
[2024-02-20 16:46] LABS: POC Glucose,Bedside 122 (70-110)
[2024-02-20] MEDS: levoFLOXacin 750 MG TABLET PO (16:52)
[2024-02-20 20:31] LABS: POC Glucose,Bedside 150 (70-110)
[2024-02-20] MEDS: ATORVASTATIN 40MG TABLET 40 MG PO (20:44)
[2024-02-20] MEDS: ACETAMINOPHEN 325MG TAB 650 MG PO (23:27)
[2024-02-21] VITALS (7 sets, daily range): BP systolic 117–166; BP diastolic 64–87; PULSE 70–80; RESP 14–18; TEMP 36.6–37.4; O2SAT 96–98; BMI 31.4
--- NOTE | 2024-02-21 04:27 | PC.NURSE ---
Patient alert and oriented to name and only. Tolerating room air well. NSR on tele. Purewick in place. Patient will follow simple commands and answers simple questions. Has complained of a headache a few times through shift and treated per MAR. Call light within reach.
[2024-02-21] MEDS: CLOPIDOGREL 75MG TAB 75 MG PO (08:37)
[2024-02-21] MEDS: LORATADINE 10MG TABLET 10 MG PO (08:37)
[2024-02-21] MEDS: PANTOPRAZOLE 40MG TABLET 40 MG PO (08:37)
[2024-02-21] MEDS: DOCUSATE SODIUM 100 MG CAPSULE PO (08:37)
[2024-02-21] MEDS: ASPIRIN EC 81MG TABLET 81 MG PO (08:37)
[2024-02-21] MEDS: CITALOPRAM 20MG TABLET 20 MG PO (08:37)
[2024-02-21] MEDS: EZETIMIBE 10MG TABLET 10 MG PO (08:37)
[2024-02-21] MEDS: METFORMIN 500MG TABLET 500 MG PO (08:37)
[2024-02-21 08:51] LABS: Basophils % 0.6 % (0.1-2.0); Eosinophils # 0.1 K/mm3 (0.0-0.4); Eosinophils % 2.6 % (0.1-12.0); Hematocrit 39.4 % (37.0-47.0); Hemoglobin 12.7 g/dL (12.2-16.2); Lymphocytes # 0.6 K/mm3 (0.7-4.5); Lymphocytes % 16.6 % (10-50); Mean Corpuscular HGB Conc 32.1 g/dL (31.8-35.4); Mean Corpuscular Hemoglobin 30.6 pg (27.0-31.2); Mean Corpuscular Volume 95.2 fl (81-99); Mean Platelet Volume 9.7 fl (7.4-10.4); Monocytes # 0.3 K/mm3 (0.1-1.0); Monocytes % 8.2 % (1.7-9.3); Neutrophils # 2.4 K/mm3 (1.8-7.8); Platelet Count 156 K/mm3 (142-424); Red Blood Count 4.14 M/mm3 (4.20-5.40); Red Cell Distribution Width 15.3 % (11.5-17.5); White Blood Count 3.4 K/mm3 (4.8-10.8)
[2024-02-21 08:59] LABS: Chloride 106 mmol/L (98-107); Potassium 3.8 mmoL/L (3.5-5.1); Sodium 137 mmol/L (136-145)
[2024-02-21 09:02] LABS: Anion Gap 10.8 mEq/L (5-15); Blood Urea Nitrogen 13 mg/dl (7-17); Calcium 8.3 mg/dl (8.4-10.2); Carbon Dioxide 24 mmol/L (22.0-30.0); Creatinine Clearance Estimated 85 mL/min (50-200); Estimated Glomerular Filt Rate 66 ml/min (>60); GFR (African American) 80 ML/MIN (>60); Glucose 87 mg/dl (74-100); Magnesium 1.9 mg/dl (1.6-2.3)
--- NOTE | 2024-02-21 12:08 | P.PN_ITS ---
Subjective *Date: 02/21/24 *Time: 15:12 Interval history: Patient did well over night. No acute events. Blood pressure remained stable. No óscar fever. On room air. Tolerating p.o. intake. Spoke to brother today. He is spoken to patient, she is open to placement. He feels this to be best for her. Agree that this is best given therapies evaluations. Discussed her prognosis given the extent of damage from her stroke and the likelihood of her not having recovery of her speech and right-sided musculoskeletal deficits. Medical Exam Vital signs and Labs for Last 24 Hours: Vital Signs Temp Pulse Pulse Resp BP Pulse Ox O2 Del Method 02/21/24 08:00 98.6 F 77 14 117/64 97 Room Air 02/21/24 08:00 80 02/21/24 06:45 Room Air 02/21/24 04:53 Room Air 02/21/24 04:00 71 02/21/24 04:00 97.8 F 74 17 125/71 97 Room Air 02/21/24 02:57 Room Air 02/21/24 00:52 Room Air 02/21/24 00:00 79 02/20/24 23:27 Room Air 02/20/24 21:00 Room Air 02/20/24 20:44 94 L Room Air 02/20/24 20:00 87 02/20/24 20:00 99.8 F H 81 16 126/71 94 L Room Air 02/20/24 18:32 Room Air 02/20/24 17:00 Room Air 02/20/24 16:00 90 02/20/24 15:31 99.8 F H 81 16 113/61 94 L Room Air 02/20/24 15:00 Room Air 02/20/24 13:00 Room Air Intake and Output 02/20/24 02/21/24 02/21/24 23:59 07:59 15:59 Intake Total 270 / 1642 340 / 340 Output Total 500 / 1550 600 / 900 300 / 900 Balance -230 / 92 -600 / -560 40 / -560 Intake: Intake, Oral Amount 270 / 1592 340 / 340 Output: Output, Urine Amount 500 / 1550 600 / 900 300 / 900 Other: Number of Unmeasured Voids 0 0 0 Weight 72.575 kg Patient Weight 02/21/24 23:59 Weight 72.575 kg Laboratory Results - last 24 hr 06/22/24 16:38: POC Glucose 122 H 02/20/24 20:24: POC Glucose 150 H 02/21/24 06:35: WBC 3.4 L D, RBC 4.14 L, Hgb 12.7, Hct 39.4, MCV 95.2, MCH 30.6, MCHC 32.1, RDW 15.3, Plt Count 156 D, MPV 9.7, Neut % (Auto) 72.0, Lymph % (Auto) 16.6, [place] % (Auto) 8.2, Eos % (Auto) 2.6, Baso % (Auto) 0.6, Neut # (Auto) 2.4, Lymph # (Auto) 0.6 L, [place] # (Auto) 0.3, Eos # (Auto) 0.1, Baso # (Auto) 0.0, Sodium 137, Potassium 3.8, Chloride 106, Carbon Dioxide 24, Anion Gap 10.8, BUN 13, Creatinine 0.90, Estimated Creat Clear 85, Estimated GFR 66, Est GFR ( Amer) 80, Glucose 87, Calcium 8.3 L, Magnesium 1.9 I & O for Labs for Last 24 Hours: Intake & Output 02/18/24 02/19/24 02/20/24 02/21/24 23:59 23:59 23:59 23:59 Intake Total 896 / 946 1642 / 1642 340 / 340 Output Total 300 / 800 1550 / 1550 900 / 900 Balance 596 / 146 92 / 92 -560 / -560 Weight 63.503 kg 72 kg 72.711 kg 72.575 kg Constitutional: Present no acute distress, obese, chronically ill appearing and cooperative Head: Present atraumatic and normocephalic ENT: Present normal exam Respiratory: Present normal respiratory effort; Absent rhonchi, stridor, wheezes or crackles Cardiac: Present Reg Rate and Rhythm GI: Present soft and normal bowel sounds; Absent distention or tenderness Comment:: Contracture of right upper extremity, limited range of motion. Unable to use fingers. Can raise arm and shoulder. Right leg with strength in thigh, unable to wiggle toes. Strength 5/5 in left upper and lower extremity. Right foot in postop shoe Skin: Present intact; Absent erythema Neuro: Present alert, awake and moves all extremities Comment:: Unable to evaluate orientation due to neurologic deficit; right-sided deficits, left side with normal strength Assessment and Plan *Assessment and plan (1) Metatarsal fracture: Status: Acute Qualifiers: Encounter type: initial encounter Fracture alignment: nondisplaced Fracture type: closed Laterality: right Metatarsal bone: fifth Qualified Code(s): S92.354A - Nondisplaced fracture of fifth metatarsal bone, right foot, initial encounter for closed fracture Category: Medical Code(s): S92.309A - Fracture of unspecified metatarsal bone(s), unspecified foot, initial encounter for closed fracture (2) Aphasia as late effect of cerebrovascular accident: Status: Acute Category: Medical Code(s): I69.320 - Aphasia following cerebral infarction (3) UTI (urinary tract infection): Status: Acute Qualifiers: Hematuria presence: with hematuria Urinary tract infection type: site unspecified Qualified Code(s): N39.0 - Urinary tract infection, site not specified; R31.9 - Hematuria, unspecified Category: Medical Code(s): N39.0 - Urinary tract infection, site not specified (4) Stroke: Status: Acute Qualifiers: CVA mechanism: occlusion Laterality of affected vessel: left Precerebral and cerebral artery: cerebellar artery Qualified Code(s): I63.542 - Cerebral infarction due to unspecified occlusion or stenosis of left cerebellar artery Category: Medical Code(s): I63.9 - Cerebral infarction, unspecified (5) Diabetes: Status: Acute Qualifiers: Diabetes mellitus complication status: with other specified complication Diabetes mellitus technician terminal and repeater insulin use: without technician terminal and repeater use Diabetes mellitus type: type 2 Qualified Code(s): E11.69 - Type 2 diabetes mellitus with other specified complication Category: Medical Code(s): E11.9 - Type 2 diabetes mellitus without complications (6) HTN (hypertension): Status: Acute Qualifiers: Hypertension type: unspecified Qualified Code(s): I10 - Essential (prim santiago) hypertension Category: Medical Code(s): I10 - Essential (primary) hypertension (7) Tobacco abuse: Status: Acute Category: Medical Code(s): Z72.0 - Tobacco use Plan 53-year-old female obese with past medical history of [id number] type 2 diabetes, previous stroke, hypertension, ICAO status post stent on the left, unclear baseline, apparently ambulatory, with right upper arm deficit and aphasia. Coming for evaluation of right ankle pain after fall at home, fever, and altered mental status, according to family less responsive. Initial interventions include crystalloid bolus Toradol Tylenol. Initial workup reviewed by me shows that her hematologic labs are nonactionable however she has urinary tract infection. Chest x-ray shows no acute processes however CT scan shows extensive previous strokes. She has a subacute left JUANA territory stroke and possible extension of her left MCA stroke. No neurological interventions. Plain x-ray showed right fifth metatarsal fracture nondisplaced. ED request admission for inpatient management. Medicine agreed to admit. Evaluate by for repeat, necessitating placement. Hemodynamically stable. Working with therapy daily. Continues to require inpatient management. Problems addressed as follows: -Right fifth metatarsal fracture. Avulsion type fracture nondisplaced. Requiring only symptomatic treatments -Nondisplaced. In postop shoe. Weightbearing as tolerated. Plan for follow-up with orthopedics in 2 weeks to monitor healing UTI -Urinalysis grossly abnormal. Culture still pending. levofloxacin 750 mg daily for empiric coverage. Further management pending culture and sensitivity -White count normal at 3.4. -I have ordered repeat CBC, CMP, magnesium for the morning. -Magnesium 1.9, Calcium 8.3, kidney function normal with BUN 13, creatinine 0.9 Aphasia as a late effect of CVA Acute on subacute stroke -MRI obtained 02/18 shows some acute on chronic changes in the left JUANA territory. -Continue medical management with aspirin 81 mg, and Plavix 75 mg daily. -Initiate Lipitor 40 mg nightly and Plavix. - Neurocheck every 4. -PT, OT, speech working with patient daily -Case management assisting with placement -NIDDM: Accu-Chek before meals; on sliding scale Last A1c 5.9 reviewed from outside previous records -metformin 500 mg daily Hypertension On losartan and hydrochlorothiazide, permissive hypertension Tobacco user: On nicotine patch Lovenox for DVT prophylaxis Protonix Full code
[2024-02-21] MEDS: POLYETHYLENE GLYCOL 3350 17 GM PACKET PO (12:14)
[2024-02-21] MEDS: levoFLOXacin 750 MG TABLET PO (12:14)
[2024-02-21] MEDS: ATORVASTATIN 40MG TABLET 40 MG PO (20:02)
[2024-02-22 04:00] VITALS: BP 125/71; PULSE 77; RESP 17; TEMP 36.9; O2SAT 95; BMI 31.8
--- NOTE | 2024-02-22 04:33 | PC.NURSE ---
Patient alert and oriented to name and only. Tolerating room air well. Tele discontinued per MD Jaeger. Purewick in place. Patient will follow simple commands and answers simple questions. Has not had any complaints or expressed any needs throughout shift. Call light within reach.
[2024-02-22 07:49] VITALS: BP 127/72; PULSE 82; RESP 18; TEMP 37.1; O2SAT 94
[2024-02-22] MEDS: METFORMIN 500MG TABLET 500 MG PO (09:02)
[2024-02-22] MEDS: ASPIRIN EC 81MG TABLET 81 MG PO (09:02)
[2024-02-22] MEDS: EZETIMIBE 10MG TABLET 10 MG PO (09:02)
[2024-02-22] MEDS: DOCUSATE SODIUM 100 MG CAPSULE PO (09:02)
[2024-02-22] MEDS: LORATADINE 10MG TABLET 10 MG PO (09:03)
[2024-02-22] MEDS: CITALOPRAM 20MG TABLET 20 MG PO (09:03)
[2024-02-22] MEDS: CLOPIDOGREL 75MG TAB 75 MG PO (09:03)
[2024-02-22] MEDS: PANTOPRAZOLE 40MG TABLET 40 MG PO (09:03)
[2024-02-22] MEDS: levoFLOXacin 750 MG TABLET PO (11:30)
[2024-02-22] MEDS: POLYETHYLENE GLYCOL 3350 17 GM PACKET PO (11:30)
[2024-02-22] MEDS: SODIUM PHOS/BIPHOSPHATE FLEET 133ML ENEMA 133 ML RC (15:37)
[2024-02-22 16:00] VITALS: BP 130/72; PULSE 76; RESP 18; TEMP 37.2; O2SAT 94
--- NOTE | 2024-02-22 16:40 | PC.NURSE ---
ALERT TO SELF. PT HAS TOLERATED RA WELL THROUGHOUT SHIFT. RESPIRATIONS REGULAR AND UNLABORED. LUNG SOUNDS CLEAR THROUGHOUT. NO COUGH NOTED. HEART RATE REGULAR. ACTIVE BOWEL SOUNDS HEARD IN ALL 4 QUADRANTS. SOFT AND NONTENDER. PT RECEIVED MIRALAX AND ENEMA THIS SHIFT. PT WAS ABLE TO HAVE A LARGE BM. PURWICK IN PLACE WITH YELLOW URINE NOTED. +1 PULSES NOTED THROUGHOUT. NO EDEMA NOTED. BED ALARM ON TO PROMOTE SAFETY. BED IN LOWEST POSITION. CALL LIGHT WITHIN REACH. VSS. PT IS ABLE TO MOVE AROUND FREELY IN THE BED TO PREVENT SKIN BREAKDOWN.
--- NOTE | 2024-02-22 18:16 | EXP.ACUTE.PN ---
Subjective *Date: 02/22/24 *Time: 18:16 Interval history: Did well overnight. No acute events. Stable on room air. Lab holiday this morning. Medical Exam Vital signs and Labs for Last 24 Hours: Vital Signs Temp Pulse Resp BP Pulse Ox O2 Del Method 02/22/24 17:00 Room Air 02/22/24 16:00 99.0 F 76 18 130/72 94 L Room Air 02/22/24 15:10 Room Air 02/22/24 13:10 Room Air 02/22/24 11:05 Room Air 02/22/24 09:18 Room Air 02/22/24 08:00 Room Air 02/22/24 07:49 98.7 F 82 18 127/72 94 L Room Air 02/22/24 06:51 Room Air 02/22/24 05:00 Room Air 02/22/24 04:00 98.5 F 77 17 125/71 95 Room Air 02/22/24 02:50 Room Air 02/22/24 00:50 Room Air 02/21/24 23:04 Room Air 02/21/24 21:00 Room Air 02/21/24 20:02 96 Room Air 02/21/24 19:54 99.3 F 77 18 134/74 96 Room Air 02/21/24 18:53 Room Air Intake and Output 02/22/24 02/22/24 02/22/24 07:59 15:59 23:59 Intake Total 680 / 680 Output Total 850 / 0 700 / 0 500 / 2050 Balance -850 / -1370 -20 / -1370 -500 / -1370 Intake: Intake, Oral Amount 680 / 680 Output: Output, Urine Amount 850 / 0 700 / 0 500 / 2050 Other: Number of Unmeasured Voids 0 Number of Bowel Movements 1 Weight 73.709 kg Patient Weight 02/22/24 23:59 Weight 73.709 kg Laboratory Results - last 24 hr 02/18/24 22:01: Urine Color Yellow, Urine Appearance Clear, Urine pH 6.0, Ur Specific [place] <= 1.005, Urine Protein Negative, Urine Glucose (UA) Negative, Urine Ketones Negative, Urine Blood Trace-i, Urine Nitrate Negative, Urine Bilirubin Negative, Urine Urobilinogen 0.2, Ur Leukocyte Esterase 1+ A, Urine RBC Occasional, Urine WBC 5-10, Ur Squamous Epith Cells Occasional, Urine Bacteria 2+ I & O for Labs for Last 24 Hours: Intake & Output 02/19/24 02/20/24 02/21/24 02/22/24 23:59 23:59 23:59 23:59 Intake Total 896 / 946 1642 / 1642 1730 / 1730 680 / 680 Output Total 300 / 800 1550 / 1550 900 / 1500 2049 / 2049 Balance 596 / 146 92 / 92 830 / 230 -1370 / -1370 Weight 72 kg 72.711 kg 72.575 kg 73.709 kg Microbiology Reports for the Last 24 Hours: Microbiology 02/18/24 22:01 Urine,Clean Catch Urine Culture - Preliminary Gram Negative Rods Gram Negative Rods#2 Constitutional: Present no acute distress, obese, chronically ill appearing and cooperative Head: Present atraumatic and normocephalic ENT: Present normal exam Respiratory: Present normal respiratory effort; Absent rhonchi, stridor, wheezes or crackles Cardiac: Present Reg Rate and Rhythm GI: Present soft and normal bowel sounds; Absent distention or tenderness Comment:: Contracture of right upper extremity, limited range of motion. Unable to use fingers. Can raise arm and shoulder. Right leg with strength in thigh, unable to wiggle toes. Strength 5/5 in left upper and lower extremity. Right foot in postop shoe Skin: Present intact; Absent erythema Neuro: Present alert, awake and moves all extremities Comment:: Unable to evaluate orientation due to neurologic deficit; right-sided deficits, left side with normal strength Assessment and Plan *Assessment and plan (1) Metatarsal fracture: Status: Acute Qualifiers: Encounter type: initial encounter Fracture alignment: nondisplaced Fracture type: closed Laterality: right Metatarsal bone: fifth Qualified Code(s): S92.354A - Nondisplaced fracture of fifth metatarsal bone, right foot, initial encounter for closed fracture Category: Medical Code(s): S92.309A - Fracture of unspecified metatarsal bone(s), unspecified foot, initial encounter for closed fracture (2) Aphasia as late effect of cerebrovascular accident: Status: Acute Category: Medical Code(s): I69.320 - Aphasia following cerebral infarction (3) UTI (urinary tract infection): Status: Acute Qualifiers: Hematuria presence: with hematuria Urinary tract infection type: site unspecified Qualified Code(s): N39.0 - Urinary tract infection, site not specified; R31.9 - Hematuria, unspecified Category: Medical Code(s): N39.0 - Urinary tract infection, site not specified (4) Stroke: Status: Acute Qualifiers: CVA mechanism: occlusion Laterality of affected vessel: left Precerebral and cerebral artery: cerebellar artery Qualified Code(s): I63.542 - Cerebral infarction due to unspecified occlusion or stenosis of left cerebellar artery Category: Medical Code(s): I63.9 - Cerebral infarction, unspecified (5) Diabetes: Status: Acute Qualifiers: Diabetes mellitus type: type 2 Diabetes mellitus jail insulin use: without terminal operator use Diabetes mellitus complication status: with other specified complication Qualified Code(s): E11.69 - Type 2 diabetes mellitus with other specified complication Category: Medical Code(s): E11.9 - Type 2 diabetes mellitus without complications (6) HTN (hypertension): Status: Acute Qualifiers: Hypertension type: unspecified Qualified Code(s): I10 - Essential (primary) hypertension Category: Medical Code(s): I10 - Essential (primary) hypertension (7) Tobacco abuse: Status: Acute Category: Medical Code(s): Z72.0 - Tobacco use Plan 53-year-old female obese with past medical history of [id number] type 2 diabetes, previous stroke, hypertension, ICAO status post stent on the left, unclear baseline, apparently ambulatory, with right upper arm deficit and aphasia. Coming for evaluation of right ankle pain after fall at home, fever, and altered mental status, according to family less responsive. Initial interventions include crystalloid bolus Toradol Tylenol. Initial workup reviewed by me shows that her hematologic labs are nonactionable however she has urinary tract infection. Chest x-ray shows no acute processes however CT scan shows extensive previous strokes. She has a subacute left JUANA territory stroke and possible extension of her left MCA stroke. No neurological interventions. Plain x-ray showed right fifth metatarsal fracture nondisplaced. ED request admission for inpatient management. Medicine agreed to admit. Patient awaiting insurance approval for placement. Case management assisting. Hemodynamically stable. Problems addressed as follows: -Right fifth metatarsal fracture. Avulsion type fracture nondisplaced. Requiring only symptomatic treatments -Nondisplaced. In postop shoe. Weightbearing as tolerated. Plan for follow-up with orthopedics in 2 weeks to monitor healing UTI -Urinalysis grossly abnormal. Culture positive for 2 different strains of gram-negative rods. Will continue levofloxacin 750 mg daily for empiric coverage. Further management pending culture and sensitivity -Lab holiday today. -I have ordered repeat CBC, CMP, magnesium for the morning. Aphasia as a late effect of CVA Acute on subacute stroke -MRI obtained 02/18 shows some acute on chronic changes in the left JUANA territory. -Continue medical management with aspirin 81 mg, and Plavix 75 mg daily, Lipitor 40 mg nightly - Neurocheck every 4. -PT, OT, speech working with patient daily; awaiting placement and insurance approval. -Case management assisting with placement -NIDDM: - Last A1c 5.9 reviewed from outside previous records -metformin 500 mg daily -Stopped Accu-Cheks as her glucoses were in the low 100s and required no insulin for over 48 hours. Hypertension On losartan and hydrochlorothiazide, normotensive. Blood pressure 130/72 Tobacco user: On nicotine patch Lovenox for DVT prophylaxis Protonix Full code
--- NOTE | 2024-02-22 18:31 | PC.NURSE ---
FAMILY AT BEDSIDE AND AWARE OF PT GETTING DC TO [facility] TOMORROW.
[2024-02-22 20:00] VITALS: BP 125/68; PULSE 91; RESP 16; TEMP 37.1; O2SAT 96
[2024-02-22] MEDS: ATORVASTATIN 40MG TABLET 40 MG PO (20:15)
[2024-02-23 04:00] VITALS: BP 116/67; PULSE 73; RESP 18; TEMP 36.8; O2SAT 100; BMI 31.9
--- NOTE | 2024-02-23 05:42 | PC.NURSE ---
Alert to name and place. Right sided weakness to the arm noted. Pt rolls self in bed with some assistance. Pt has had no complaints this shift, rested well. Bed alarm on. Pt answers simple yes/no questions. Purewick in place. Call light in reach.
[2024-02-23 06:38] LABS: Basophils % 0.4 % (0.1-2.0); Eosinophils # 0.1 K/mm3 (0.0-0.4); Eosinophils % 2.5 % (0.1-12.0); Hematocrit 35.9 % (37.0-47.0); Hemoglobin 11.6 g/dL (12.2-16.2); Lymphocytes # 0.9 K/mm3 (0.7-4.5); Lymphocytes % 19.4 % (10-50); Mean Corpuscular HGB Conc 32.3 g/dL (31.8-35.4); Mean Corpuscular Hemoglobin 29.8 pg (27.0-31.2); Mean Corpuscular Volume 92.4 fl (81-99); Mean Platelet Volume 9.4 fl (7.4-10.4); Monocytes # 0.3 K/mm3 (0.1-1.0); Monocytes % 5.2 % (1.7-9.3); Neutrophils # 3.5 K/mm3 (1.8-7.8); Neutrophils % 72.4 % (37.0-80.0); Platelet Count 219 K/mm3 (142-424); Red Blood Count 3.89 M/mm3 (4.20-5.40); Red Cell Distribution Width 15.4 % (11.5-17.5); White Blood Count 4.9 K/mm3 (4.8-10.8)
[2024-02-23 06:41] LABS: Chloride 106 mmol/L (98-107); Potassium 4.4 mmoL/L (3.5-5.1); Sodium 135 mmol/L (136-145)
[2024-02-23 06:43] LABS: Blood Urea Nitrogen 13 mg/dl (7-17); Creatinine Clearance Estimated 111 mL/min (50-200); Estimated Glomerular Filt Rate 88 ml/min (>60); GFR (African American) 107 ML/MIN (>60)
[2024-02-23 06:44] LABS: Alanine Aminotransferase 21 U/L (12-78); Albumin Level 3.2 g/dl (3.5-5.0); Albumin/Globulin Ratio 1.1 (1.1-1.8); Alkaline Phosphatase 100 U/L (38-126); Anion Gap 7.4 mEq/L (5-15); Aspartate Amino Transferase 29 U/L (14-36); Bilirubin,Total 0.3 mg/dl (0.2-1.3); Calcium 8.6 mg/dl (8.4-10.2); Carbon Dioxide 26 mmol/L (22.0-30.0); Glucose 101 mg/dl (74-100); Total Protein,Serum 6.2 g/dl (6.3-8.2)
[2024-02-23 08:00] VITALS: BP 122/67; PULSE 88; RESP 18; TEMP 36.8; O2SAT 95
[2024-02-23] MEDS: POLYETHYLENE GLYCOL 3350 17 GM PACKET PO (08:27)
[2024-02-23] MEDS: DOCUSATE SODIUM 100 MG CAPSULE PO (08:28)
[2024-02-23] MEDS: ASPIRIN EC 81MG TABLET 81 MG PO (08:28)
[2024-02-23] MEDS: EZETIMIBE 10MG TABLET 10 MG PO (08:28)
[2024-02-23] MEDS: CITALOPRAM 20MG TABLET 20 MG PO (08:28)
[2024-02-23] MEDS: PANTOPRAZOLE 40MG TABLET 40 MG PO (08:28)
[2024-02-23] MEDS: METFORMIN 500MG TABLET 500 MG PO (08:28)
[2024-02-23] MEDS: CLOPIDOGREL 75MG TAB 75 MG PO (08:28)
[2024-02-23] MEDS: LORATADINE 10MG TABLET 10 MG PO (08:28)
--- NOTE | 2024-02-23 08:46 | EXP.PHA.PN ---
Subjective *Date: 02/23/24 *Time: 08:46 Medical Exam Vital signs and Labs for Last 24 Hours: Vital Signs Temp Pulse Resp BP Pulse Ox O2 Del Method 02/23/24 08:00 98.3 F 88 18 122/67 95 Room Air 02/23/24 06:50 Room Air 02/23/24 05:00 Room Air 02/23/24 04:00 98.3 F 73 18 116/67 100 Room Air 02/23/24 03:00 Room Air 02/23/24 00:46 Room Air 02/22/24 23:00 Room Air 02/22/24 21:00 Room Air 02/22/24 20:00 98.8 F 91 H 16 125/68 96 Room Air 02/22/24 20:00 Room Air 02/22/24 18:31 Room Air 02/22/24 17:00 Room Air 02/22/24 16:00 99.0 F 76 18 130/72 94 L Room Air 02/22/24 15:10 Room Air 02/22/24 13:10 Room Air 02/22/24 11:05 Room Air 02/22/24 09:18 Room Air Intake and Output 02/22/24 02/23/24 02/23/24 23:59 07:59 15:59 Intake Total 480 / 1280 120 / 480 360 / 480 Output Total 900 / 2450 650 / 650 0 / 650 Balance -420 / -1170 -530 / -170 360 / -170 Intake: Intake, Oral Amount 480 / 1280 120 / 480 360 / 480 Output: Output, Urine Amount 900 / 2450 650 / 650 0 / 650 Other: Number of Voids 0 Number of Unmeasured Voids 1 1 Number of Bowel Movements 1 Weight 73.89 kg Patient Weight 02/23/24 23:59 Weight 73.89 kg Laboratory Results - last 24 hr 02/23/24 06:21: WBC 4.9 D, RBC 3.89 L, Hgb 11.6 L, Hct 35.9 L, MCV 92.4, MCH 29.8, MCHC 32.3, RDW 15.4, Plt Count 219 D, MPV 9.4, Neut % (Auto) 72.4, Lymph % (Auto) 19.4, [place] % (Auto) 5.2, Eos % (Auto) 2.5, Baso % (Auto) 0.4, Neut # (Auto) 3.5, Lymph # (Auto) 0.9, [place] # (Auto) 0.3, Eos # (Auto) 0.1, Baso # (Auto) 0.0, Sodium 135 L, Potassium 4.4, Chloride 106, Carbon Dioxide 26, Anion Gap 7.4, BUN 13, Creatinine 0.70 D, Estimated Creat Clear 111, Estimated GFR 88, Est GFR ( Amer) 107 D, Glucose 101 H, Calcium 8.6, Magnesium 2.0, Total Bilirubin 0.3, AST 29, ALT 21, Alkaline Phosphatase 100, Total Protein 6.2 L, Albumin 3.2 L, Globulin 3.0, Albumin/Globulin Ratio 1.1 I & O for Labs for Last 24 Hours: Intake & Output 02/20/24 02/21/24 02/22/24 02/23/24 23:59 23:59 23:59 23:59 Intake Total 1642 / 1642 1730 / 1730 1160 / 1280 480 / 480 Output Total 1550 / 1550 900 / 1500 2450 / 2450 650 / 650 Balance 92 / 92 830 / 230 -1290 / -1170 -170 / -170 Weight 72.711 kg 72.575 kg 73.709 kg 73.89 kg Microbiology Reports for the Last 24 Hours: Microbiology 02/18/24 22:01 Urine,Clean Catch Urine Culture - Preliminary Gram Negative Rods Gram Negative Rods#2 The patient's infection will respond to the chosen ABx?: Yes (URINE CX = GRAM NEG. RODS X2, AFEBRILE OVER 24 HRS, WHITE COUNT 4.9) Is the patient receiving the right drug, dose, and route?: Yes Could a more targeted ABx be ordered?: No How long ABx needed (days)?: 7
[2024-02-23] MEDS: levoFLOXacin 750 MG TABLET PO (10:49)
--- NOTE | 2024-02-23 12:37 | EXP.DC.SUM ---
General Admission date:: 02/18/24 Discharge date: 02/23/24 HPI HPI HPI: This is a 53-year-old female obese with past medical history of [id number]-[id number] type 2 diabetes, developmental disability on baseline, previous stroke, hypertension, ICAO status post stent on the left. History is limited because of the patient current condition, patient has been nonverbal since November/2023, when was found to have acute left frontal and parietal lobe stroke. Patient has right upper extremity neglect and aphasia as an neurodeficit. Patient seems to understand simple commands, however has been nonverbal since prior stroke, brother contributed with the history. At the time of this assessment family have left for the day. Documentation per ED shows that patient has presented to the ED for evaluation at right ankle pain, after apparent fall at home. On arrival she was found to be tachycardiac, and on apparent altered mental status. Patient was also febrile. Admitted for inpatient management Hospital Course Hospital Course Hospital Course: 53-year-old female obese with past medical history of [id number]-[id number] type 2 diabetes, previous stroke, hypertension, ICAO status post stent on the left, unclear baseline, apparently ambulatory, with right upper arm deficit and aphasia. Coming for evaluation of right ankle pain after fall at home, fever, and altered mental status, according to family less responsive. Initial interventions include crystalloid bolus Toradol Tylenol. Initial workup reviewed by me shows that her hematologic labs are nonactionable however she has urinary tract infection. Chest x-ray shows no acute processes however CT scan shows extensive previous strokes. She has a subacute left JUANA territory stroke and possible extension of her left MCA stroke. No neurological interventions. Plain x-ray showed right fifth metatarsal fracture nondisplaced. ED request admission for inpatient management. Medicine agreed to admit. Patient awaiting insurance approval for placement. Case management assisting. Hemodynamically stable. Problems addressed as follows: -Right fifth metatarsal fracture. Avulsion type fracture nondisplaced. Requiring only symptomatic treatments -Nondisplaced. In postop shoe. Weightbearing as tolerated. 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 -Continue medical management with aspirin 81 mg, and Plavix 75 mg daily, Lipitor 40 mg nightly -NIDDM: - on metformin Constitutional: Present no acute distress, obese, chronically ill appearing and cooperative Head: Present atraumatic and normocephalic ENT: Present normal exam Respiratory: Present normal respiratory effort; Absent rhonchi, stridor, wheezes or crackles Cardiac: Present Reg Rate and Rhythm GI: Present soft and normal bowel sounds; Absent distention or tenderness Comment:: Contracture of right upper extremity, limited range of motion. Unable to use fingers. Can raise arm and shoulder. Right leg with strength in thigh, unable to wiggle toes. Strength 5/5 in left upper and lower extremity. Right foot in postop shoe Skin: Present intact; Absent erythema Neuro: Present alert, awake and moves all extremities Comment:: Unable to evaluate orientation due to neurologic deficit; right-sided deficits, left side with normal strength Exam Data for Last 24 hours Vital signs and Labs for Last 24 Hours: Temp Pulse Resp BP Pulse Ox O2 Del Method 98.3 F 88 18 122/67 95 Room Air 02/23/24 08:00 02/23/24 08:00 02/23/24 08:00 02/23/24 08:00 02/23/24 08:00 02/23/24 08:00 Laboratory Results - last 24 hr 02/23/24 06:21: WBC 4.9 D, RBC 3.89 L, Hgb 11.6 L, Hct 35.9 L, MCV 92.4, MCH 29.8, MCHC 32.3, RDW 15.4, Plt Count 219 D, MPV 9.4, Neut % (Auto) 72.4, Lymph % (Auto) 19.4, [place] % (Auto) 5.2, Eos % (Auto) 2.5, Baso % (Auto) 0.4, Neut # (Auto) 3.5, Lymph # (Auto) 0.9, [place] # (Auto) 0.3, Eos # (Auto) 0.1, Baso # (Auto) 0.0, Sodium 135 L, Potassium 4.4, Chloride 106, Carbon Dioxide 26, Anion Gap 7.4, BUN 13, Creatinine 0.70 D, Estimated Creat Clear 111, Estimated GFR 88, Est GFR ( Amer) 107 D, Glucose 101 H, Calcium 8.6, Magnesium 2.0, Total Bilirubin 0.3, AST 29, ALT 21, Alkaline Phosphatase 100, Total Protein 6.2 L, Albumin 3.2 L, Globulin 3.0, Albumin/Globulin Ratio 1.1 I & O for Last 24 hours: Intake & Output 02/20/24 02/21/24 02/22/24 02/23/24 23:59 23:59 23:59 23:59 Intake Total 1642 / 1642 1730 / 1730 1160 / 1280 480 / 480 Output Total 1550 / 1550 900 / 1500 2450 / 2450 650 / 650 Balance 92 / 92 830 / 230 -1290 / -1170 -170 / -170 Weight 72.711 kg 72.575 kg 73.709 kg 73.89 kg Microbiology Reports for the Last 24 Hours: Microbiology 02/18/24 22:01 Urine,Clean Catch Urine Culture - Final Escherichia coli Constitutional Constitutional: no acute distress *Routine HEENT Exam Head: Present normocephalic Eye: Present EOMI and PERRL ENT: Present mucous membranes moist *Routine Neck Exam Neck: Present supple; Absent lymphadenopathy *Routine Respiratory Exam Respiratory: Present CTA bilaterally *Routine Cardiovascular Exam Cardiovascular: Present RRR *Routine Abdominal Exam Abdominal: Present soft and normoactive bowel sounds; Absent tenderness *Routine Extremities Exam Extremities: Absent cyanosis, clubbing or edema *Routine Skin Exam Skin: Present warm; Absent rash *Routine Neurological Exam Neurological: Present alert and oriented X3 Results Data Completed and Pending Labs on day of discharge: Labs from last 24 hours 02/23/24 06:21 WBC 4.9 D RBC 3.89 L Hgb 11.6 L Hct 35.9 L MCV 92.4 MCH 29.8 MCHC 32.3 RDW 15.4 Plt Count 219 D MPV 9.4 Neut % (Auto) 72.4 Lymph % (Auto) 19.4 [place] % (Auto) 5.2 Eos % (Auto) 2.5 Baso % (Auto) 0.4 Neut # (Auto) 3.5 Lymph # (Auto) 0.9 [place] # (Auto) 0.3 Eos # (Auto) 0.1 Baso # (Auto) 0.0 Sodium 135 L Potassium 4.4 Chloride 106 Carbon Dioxide 26 Anion Gap 7.4 BUN 13 Creatinine 0.70 D Estimated Creat Clear 111 Estimated GFR 88 Est GFR ( Amer) 107 D Glucose 101 H Calcium 8.6 Magnesium 2.0 Total Bilirubin 0.3 AST 29 ALT 21 Alkaline Phosphatase 100 Total Protein 6.2 L Albumin 3.2 L Globulin 3.0 Albumin/Globulin Ratio 1.1 DS: Diagnosis Discharge Diagnosis (1) Metatarsal fracture: Status: Acute Code(s): S92.309A - Fracture of unspecified metatarsal bone(s), unspecified foot, initial encounter for closed fracture Qualifiers: Encounter type: initial encounter Fracture alignment: nondisplaced Fracture type: closed Laterality: right Metatarsal bone: fifth Qualified Code(s): S92.354A - Nondisplaced fracture of fifth metatarsal bone, right foot, initial encounter for closed fracture (2) Aphasia as late effect of cerebrovascular accident: Status: Acute Code(s): I69.320 - Aphasia following cerebral infarction (3) UTI (urinary tract infection): Status: Acute Code(s): N39.0 - Urinary tract infection, site not specified Qualifiers: Hematuria presence: with hematuria Urinary tract infection type: site unspecified Qualified Code(s): N39.0 - Urinary tract infection, site not specified; R31.9 - Hematuria, unspecified (4) Stroke: Status: Acute Code(s): I63.9 - Cerebral infarction, unspecified Qualifiers: CVA mechanism: occlusion Laterality of affected vessel: left Precerebral and cerebral artery: cerebellar artery Qualified Code(s): I63.542 - Cerebral infarction due to unspecified occlusion or stenosis of left cerebellar artery (5) Diabetes: Status: Acute Code(s): E11.9 - Type 2 diabetes mellitus without complications Qualifiers: Diabetes mellitus type: type 2 Diabetes mellitus morphology teacher insulin use: without morphology teacher use Diabetes mellitus complication status: with other specified complication Qualified Code(s): E11.69 - Type 2 diabetes mellitus with other specified complication (6) HTN (hypertension): Status: Acute Code(s): I10 - Essential (primary) hypertension Qualifiers: Hypertension type: unspecified Qualified Code(s): I10 - Essential (primary) hypertension (7) Tobacco abuse: Status: Acute Code(s): Z72.0 - Tobacco use Meds Home Medications and Allergies Home Medications Medication Instructions Recorded Confirmed Type aspirin 81 mg tablet,delayed 81 mg PO DAILY 02/19/24 02/19/24 History release cetirizine 10 mg tablet 10 mg PO DAILY 02/19/24 02/19/24 History clopidogrel 75 mg tablet 75 mg PO DAILY 02/19/24 02/19/24 History ergocalciferol (vitamin D2) 1,250 1,250 mcg PO WEEKLY 02/19/24 02/19/24 History mcg (50,000 unit) capsule (Vitamin D2) escitalopram oxalate 10 mg tablet 10 mg PO DAILY 02/19/24 02/19/24 History ezetimibe 10 mg tablet 10 mg PO DAILY 02/19/24 02/19/24 History fluticasone propionate 50 2 spray intranasal DAILY 02/19/24 02/19/24 History mcg/actuation nasal spray,suspension losartan 100 1 tab PO DAILY 02/19/24 02/19/24 History mg-hydrochlorothiazide 25 mg tablet metformin 500 mg tablet 500 mg PO DAILY 02/19/24 02/19/24 History atorvastatin 40 mg tablet 40 mg PO HS 30 days #30 tabs 02/23/24 Rx levofloxacin 750 mg tablet 750 mg PO 1100 7 days #7 tabs 02/23/24 Rx nicotine 21 mg/24 hr daily 21 mg transdermal DAILYP PRN 02/23/24 Rx transdermal patch Nicotine Cravings 30 days #30 ea pantoprazole 40 mg tablet,delayed 40 mg PO DAILY 30 days #30 tabs 02/23/24 Rx release New Prescriptions to Start Prescriptions: atorvastatin Yomi,Carlitoan levofloxacin Yomi,Carlitoan nicotine Yomi,Dev pantoprazole Yomi,Dev Allergies Allergy/AdvReac Type Severity Reaction Status Date / Time ibuprofen Allergy Verified 02/18/24 20:55 Discharge Plan Disposition Patient Disposition: Xfer SNF Condition: Good Discharge Order Discharge Orders: Discharge Order (Routine); Ordered 02/23/24 Ordered By: Dev Celaya Follow up Plan Follow up with: Provider,Referral, MD [Primary Care Provider] - 1 week Prescriptions/Medication Reconciliation: New atorvastatin 40 mg Tablet 40 mg PO HS 30 Days Qty: 30 0RF pantoprazole 40 mg Tablet,Delayed Release (Dr/Ec) 40 mg PO DAILY 30 Days Qty: 30 0RF nicotine 21 mg/24 hr Patch 24 Hour 21 mg transdermal DAILYP PRN (Reason: Nicotine Cravings) 30 Days Qty: 30 0RF levofloxacin 750 mg Tablet 750 mg PO 1100 7 Days Qty: 7 0RF Continued metformin 500 mg tablet 500 mg PO DAILY Patient Comments: TAKE 1 tablet with meals Once a day cetirizine 10 mg tablet 10 mg PO DAILY Patient Comments: Take 1 tablet by mouth Daily. clopidogrel 75 mg tablet 75 mg PO DAILY Patient Comments: TAKE ONE TABLET BY MOUTH ONCE DAILY aspirin 81 mg tablet,delayed release (DR/EC) 81 mg PO DAILY Patient Comments: TAKE ONE TABLET EVERY DAY losartan-hydrochlorothiazide 100-25 mg tablet 1 tab PO DAILY Patient Comments: Take 1 tablet by mouth Daily. ergocalciferol (vitamin D2) [Vitamin D2] 1,250 mcg (50,000 unit) capsule 1,250 mcg PO WEEKLY fluticasone propionate 50 mcg/actuation spray,suspension 2 spray INTRANASAL DAILY Patient Comments: place 2 sprays into the nostril(s) as directed by provider Daily. escitalopram oxalate 10 mg tablet 10 mg PO DAILY Patient Comments: TAKE ONE TABLET BY MOUTH ONCE DAILY ezetimibe 10 mg tablet 10 mg PO DAILY Patient Comments: Take 1 tablet by mouth Daily. Problem Reconciliation Problems Reviewed?: Yes Patient Discharge Instructions ACTIVITY: Ambulate as tolerated DIET: continue same diet Patient Instructions: Ankle Fracture, DI for Stroke-Ischemic, DI for Urinary Tract Infection (UTI), DI for Ankle Pain Providers Primary Care Provider: Provider,Referral Admit Provider: Fermin Jaeger Attending Provider: Fermin Jaeger
[2024-02-23 16:00] VITALS: BP 115/73; PULSE 77; RESP 18; TEMP 36.4; O2SAT 96
--- NOTE | 2024-02-23 18:59 | PC.NURSE ---
Patient waiting on EMS to take her to [facility] d/c complete.
== END 2024-02-23 20:40 | DRG 65 ==
LOC: ER 22:52 → 2ND 23:23
PROVIDERS: Nurse Practitioner Family; Physician Assistant; Admitting Provider Internal Medicine Adolescent Medicine; Emergency Provider Student in an Organized Health Care Education/Training Program; Visit Provider Internal Medicine Adolescent Medicine
DX: I63.9 Cerebral infarction, unspecified (principal); N39.0 Urinary tract infection, site not specified; S92.354A Nondisplaced fracture of fifth metatarsal bone, right foot, initial encounter for closed fracture; W19.XXXA Unspecified fall, initial encounter; F17.200 Nicotine dependence, unspecified, uncomplicated; I69.320 Aphasia following cerebral infarction; E11.9 Type 2 diabetes mellitus without complications; I10 Essential (primary) hypertension
CPT/HCPCS: 36415; 70450; 70496; 70498; 70551; 71045; 73590; 73610; 73620; 74018; 80048; 80053; 81001; 82962; 83605; 83735; 84145; 85025; 87086; 87088; 87186; 92610; 93005; 97110; 97163; 97166; 97530; 99291; J0131; J0696; J7120; Q9967

== ENCOUNTER 2024-03-08 13:05 | Outpatient (CLI) | payer OTHER, SELFPAY ==
--- NOTE | 2024-03-08 13:09 | XR_ITS ---
FINAL REPORT CLINICAL HISTORY: Rt Foot Pain FINDINGS: Right foot Three views were obtained. There is a transverse fracture involving the proximal aspect of the 5th metatarsal. Mild degenerative changes are present. IMPRESSION: Fracture as above. Reviewed, Interpreted and Dictated by José Camara III, MD Transcribed by Joyce Pace Authenticated and [facility]
== END 2024-03-08 23:59 | disposition home or self-care (01) ==
LOC: RAD 13:06
PROVIDERS: PCP Internal Medicine Adolescent Medicine; Visit Provider Orthopaedic Surgery
DX: M79.671 Pain in right foot (principal); S92.351A Displaced fracture of fifth metatarsal bone, right foot, initial encounter for closed fracture
CPT/HCPCS: 73630

== ENCOUNTER 2024-03-29 09:10 | Outpatient (CLI) | payer OTHER, SELFPAY ==
[2024-03-29 12:23] LABS: Microscopic, Urine URINE MICROSCOPIC (MICROSCOPIC)
[2024-03-29 12:59] LABS: Appearance,Urine CLEAR (Clear); Bilirubin,Urine Negative (Negative); Blood, Urine Negative (Negative); Color,Urine YELLOW (Yellow); Glucose,Urine (UA) Negative (Negative); Ketones,Urine Negative (Negative); Leukocyte Esterase,Urine Negative (Negative); Nitrate,Urine Negative (Negative); Protein,Urine Negative (Negative); Specific Gravity, Urine 1.015 (1.005-1.030)
[2024-03-29 13:15] LABS: Bacteria,Urine 3+ /lpf
== END 2024-03-29 23:59 | disposition home or self-care (01) ==
PROVIDERS: PCP Internal Medicine Adolescent Medicine; Visit Provider Nurse Practitioner Family
DX: R41.82 Altered mental status, unspecified (principal)
CPT/HCPCS: 81001; 87086; 87088; 87186

== ENCOUNTER 2024-04-04 13:38 | Outpatient (CLI) | payer OTHER, SELFPAY ==
--- NOTE | 2024-04-04 13:49 | XR_ITS ---
FINAL REPORT CLINICAL HISTORY: right foot pain FINDINGS: RIGHT FOOT 3 views of the right foot were obtained. There is a transverse fracture at the proximal fifth metatarsal. Mild degenerative changes are noted. Visualized joint spaces are normally aligned. Soft tissues are unremarkable. IMPRESSION: Burst fracture at the proximal fifth metatarsal. Reviewed, Interpreted and Dictated by José Camara III, MD Transcribed by Elaina Perez Authenticated and [facility]
== END 2024-04-04 23:59 | disposition home or self-care (01) ==
LOC: RAD 13:39
PROVIDERS: PCP Internal Medicine Adolescent Medicine
DX: M79.671 Pain in right foot (principal); S92.354D Nondisplaced fracture of fifth metatarsal bone, right foot, subsequent encounter for fracture with routine healing
CPT/HCPCS: 73630

== ENCOUNTER 2024-07-06 15:48 | Outpatient (CLI) | payer OTHER, SELFPAY | END 2024-07-06 23:59 | disposition home or self-care (01) | PROVIDERS: PCP Family Medicine; Visit Provider Family Medicine | DX: Z02.9 Encounter for administrative examinations, unspecified (principal) ==

== ENCOUNTER 2024-07-06 15:54 | Outpatient (CLI) | payer OTHER, SELFPAY ==
[2024-07-06 16:45] LABS: Basophils % 0.6 % (0.1-2.0); Eosinophils # 0.1 K/mm3 (0.0-0.4); Eosinophils % 2.7 % (0.1-12.0); Hematocrit 41.3 % (37.0-47.0); Hemoglobin 14.1 g/dL (12.2-16.2); Lymphocytes # 1.4 K/mm3 (0.7-4.5); Lymphocytes % 30.5 % (10-50); Mean Corpuscular HGB Conc 34.3 g/dL (31.8-35.4); Mean Corpuscular Hemoglobin 31.3 pg (27.0-31.2); Mean Corpuscular Volume 91.4 fl (81-99); Mean Platelet Volume 9.2 fl (7.4-10.4); Monocytes # 0.3 K/mm3 (0.1-1.0); Monocytes % 6.8 % (1.7-9.3); Neutrophils # 2.7 K/mm3 (1.8-7.8); Neutrophils % 59.4 % (37.0-80.0); Platelet Count 219 K/mm3 (142-424); Red Blood Count 4.51 M/mm3 (4.20-5.40); Red Cell Distribution Width 14.8 % (11.5-17.5); White Blood Count 4.6 K/mm3 (4.8-10.8)
[2024-07-06 17:01] LABS: Albumin Level 4.1 g/dl (3.5-5.0); Chloride 111 mmol/L (98-107); Potassium 4.4 mmoL/L (3.5-5.1); Sodium 139 mmol/L (136-145)
[2024-07-06 17:04] LABS: Alanine Aminotransferase 25 U/L (12-78); Albumin/Globulin Ratio 1.5 (1.1-1.8); Alkaline Phosphatase 107 U/L (38-126); Anion Gap 12.4 mEq/L (5-15); Aspartate Amino Transferase 29 U/L (14-36); Bilirubin,Total 0.4 mg/dl (0.2-1.3); Blood Urea Nitrogen 14 mg/dl (7-17); Calcium 9.5 mg/dl (8.4-10.2); Carbon Dioxide 20 mmol/L (22.0-30.0); Chol/HDL Ratio 3.9 (1-3.5); Cholesterol 170 mg/dl (140-200); Estimated Glomerular Filt Rate 105 ml/min (>60); GFR (African American) 127 ML/MIN (>60); Globulin 2.8 g/dL (1.3-3.2); Glucose 86 mg/dl (74-100); HDL Cholesterol 44 mg/dl (40-60); Total Protein,Serum 6.9 g/dl (6.3-8.2); Triglycerides 195 mg/dl (30-150); VLDL Cholesterol 39 mg/dL (0-40)
[2024-07-06 17:16] LABS: Direct LDL Cholesterol 88.82 mg/dL (100-129)
[2024-07-06 17:20] LABS: 25-OH Vitamin D, Total 44.3 ng/mL (30-100)
[2024-07-06 17:35] LABS: Thyroid Stimulating Hormone 1.37 uIU/mL (0.465-4.68)
== END 2024-07-06 23:59 | disposition home or self-care (01) ==
LOC: LAB 15:55
PROVIDERS: PCP Family Medicine; Visit Provider Family Medicine
DX: Z00.00 Encounter for general adult medical examination without abnormal findings (principal); I10 Essential (primary) hypertension; Z72.0 Tobacco use; I69.320 Aphasia following cerebral infarction; I63.9 Cerebral infarction, unspecified; R53.1 Weakness
CPT/HCPCS: 36415; 80050; 80053; 80061; 82306; 84443; 85025

== ENCOUNTER 2024-09-12 13:47 | Observation (INO) | payer OTHER, SELFPAY ==
[2024-09-12] VITALS (20 sets, daily range): BP systolic 121–172; BP diastolic 72–118; PULSE 77–97; RESP 12–18; TEMP 36.6–37.1; O2SAT 95–98; BMI 32.3; BMI 34.0
--- NOTE | 2024-09-12 14:08 | CT_ITS ---
FINAL REPORT CLINICAL HISTORY: concern for CVA, 1 wk slurred speech COMPARISON: 02/19/2024 FINDINGS: CT NECK ANGIO, WITHOUT AND WITH CONTRAST TECHNIQUE: Thin section axial CT with contrast with multiplanar 3D MIP reconstruction. This study was performed with techniques to keep radiation doses as low as reasonably achievable, (ALARA). Individualized dose reduction techniques using automated exposure control or adjustment of mA and/or kV according to the patient's size were employed. NASCET criteria and technique was utilized during interpretation. FINDINGS: Aortic arch: Arch shows no significant narrowing. Great vessel origins are widely patent. Right carotid: No significant stenosis is seen of the cervical common or internal carotid artery. Left carotid: There is chronic occlusion of the left internal carotid artery extending from the origin into the skull base. Vertebrals: Left vertebral artery is dominant. No significant stenosis is present. IMPRESSION: Chronic left internal carotid artery occlusion. Reviewed, Interpreted and Dictated by Nelli Hampton MD Transcribed by Yenifer Connor Authenticated and . [facility]
--- NOTE | 2024-09-12 14:08 | CT_ITS ---
FINAL REPORT CLINICAL HISTORY: concern for CVA, 1 wk slurred speech COMPARISON: 02/19/2024 FINDINGS: CTA HEAD TECHNIQUE: Thin section axial CT with contrast with 3D MIP reconstruction This study was performed with techniques to keep radiation doses as low as reasonably achievable, (ALARA). Individualized dose reduction techniques using automated exposure control or adjustment of mA and/or kV according to the patient's size were employed. FINDINGS: The distal right internal carotid artery is normal. There is chronic occlusion of the left internal carotid artery with reconstitution of the posterior cavernous left internal carotid artery. There is likely a stent within the distal cavernous left internal carotid artery. There is filling of the left middle cerebral branches which are patent although small in caliber due to inflow disease. Left anterior cerebral artery occlusion is considered chronic. The right MCA and JUANA are intact. The basilar artery and the posterior cerebral artery are intact. IMPRESSION: Chronic vascular disease involving the left internal carotid artery. Reviewed, Interpreted and Dictated by Nelli Hampton MD Transcribed by Yenifer Connor Authenticated and [facility]
--- NOTE | 2024-09-12 14:09 | CT_ITS ---
FINAL REPORT TECHNIQUE: Noncontrast exam This study was performed with techniques to keep radiation doses as low as reasonably achievable, (ALARA). Individualized dose reduction techniques using automated exposure control or adjustment of mA and/or kV according to the patient''s size were employed. CLINICAL HISTORY: concern for CVA, 1 wk slurred speech FINDINGS: There is a large area of his encephalomalacia in the left frontal lobe and left basal ganglia. Appearance is compatible with chronic left JUANA and MCA infarcts. Ventricles are normal. There is no hemorrhage. No mass effect is seen. The right hemisphere is unremarkable. Bone windows show no evidence of fracture. IMPRESSION: Chronic changes in the left hemisphere without acute findings. Reviewed, Interpreted and Dictated by Nelli Hampton MD Transcribed by Yenifer Connor Authenticated and [facility]
--- NOTE | 2024-09-12 14:09 | XR_ITS ---
FINAL REPORT CLINICAL HISTORY: concern for CVA, 1 wk slurred speech COMPARISON: None FINDINGS: No acute pulmonary opacity is present. There is no evidence of effusion or pneumothorax. Mediastinum is unremarkable. Heart size is normal. IMPRESSION: No acute abnormality. Reviewed, Interpreted and Dictated by Nelli Hampton MD Transcribed by Sharonda Porter Authenticated and [facility]
[2024-09-12 14:16] LABS: Microscopic, Urine URINE MICROSCOPIC (MICROSCOPIC)
--- NOTE | 2024-09-12 14:18 | ECG_ITS ---
APPROVED REPORT Exam: Resting ECG HR:91 bpm ECG Measurements Heart Rate 91 AXES NH 138 P 59 QRSd 85 QRS 1 QT 387 T 21 QTc 436 Conclusion SINUS RHYTHM LOW QRS VOLTAGE IN PRECORDIAL LEADS [QRS DEFLECTION < 1.0 mV IN CHEST LEADS] MODERATE T-WAVE ABNORMALITY, CONSIDER LATERAL ISCHEMIA [-0.1+ mV T-WAVE IN I/aVL/V5/V6] ABNORMAL ECG UNCONFIRMED REPORT Electronically signed by : DEXTER MIRELES, 09/12/2024 23:03:36
[2024-09-12 14:19] LABS: Appearance,Urine SL CLOUDY (Clear); Bilirubin,Urine Negative (Negative); Blood, Urine Negative (Negative); Color,Urine YELLOW (Yellow); Glucose,Urine (UA) Negative (Negative); Ketones,Urine Negative (Negative); Leukocyte Esterase,Urine 1+ (Negative); Nitrate,Urine POSITIVE (Negative); Protein,Urine Negative (Negative); Specific Gravity, Urine 1.025 (1.005-1.030); Urobilinogen,Urine 0.2 EU/dl (0.2)
--- NOTE | 2024-09-12 14:27 | ED_ITS ---
Discharge Plan Disposition Patient Disposition: Admitted Condition: Good Prescriptions Prescriptions: New cefdinir 300 mg capsule 300 mg PO BID 10 Days Qty: 20 0RF No Action aspirin 81 mg tablet,delayed release (DR/EC) 81 mg PO DAILY Qty: 90 1RF atorvastatin 40 mg tablet 40 mg PO HS 90 Days Qty: 90 1RF cetirizine 10 mg tablet 10 mg PO DAILY Qty: 90 1RF clopidogrel 75 mg tablet 75 mg PO DAILY Qty: 90 1RF ezetimibe 10 mg tablet 10 mg PO DAILY Qty: 90 1RF fluticasone propionate 50 mcg/actuation spray,suspension 2 spray INTRANASAL DAILY Qty: 16 3RF losartan-hydrochlorothiazide 100-25 mg tablet 1 tab PO DAILY Qty: 90 1RF metformin 500 mg tablet 500 mg PO DAILY Qty: 90 1RF Referrals Follow up/Referrals: Emily Aguilar APRN [Primary Care Provider] - See instructions Activity Restrictions/Add. Instructions Additional Instructions/Restrictions: You were evaluated in the emergency department today. 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 Please follow-up closely with your primary care provider over the next 48 hours. Continue taking your medications at home, including aspirin and statin. Return to the emergency department for new or concerning symptoms. Clinical Impressions Clinical Impression: UTI (urinary tract infection), Hypokalemia Instructions Patient Instructions: DI for Urinary Tract Infection (UTI), DI for Muscle Weakness Print Language Print Language: Turkish Discharge ED Provider: Holly Cherry General Adult HPI <Sergei Bhandari MD - Last Filed: 09/12/24 15:14> General Chief complaint: Weakness Stated complaint: slurring, dragging L leg Time Seen by Provider: 09/12/24 13:54 History of Present Illness HPI narrative: Please note that above description of symptoms, in this electronic medical record under categorization of recalled from ER triage doctor by RN are reflective of an initial nursing assessment, however, is not reflective of my full history and physical exam that was personally taken and clarified. Consequentially, this preceding description of symptoms, which may include the patient's categorized chief complaint in the EMR, do not reflect my personal clinical impression, and the ultimate description of history of present illness and patient stated complaints should be deferred to this section of the note. Unless stated otherwise or congruent with this section of the note, additional signs, symptoms, or incongruence should be interpreted as inaccurate with my clinical impression. Related Data Previous Rx's ?Medication ?Instructions ?Recorded aspirin 81 mg tablet,delayed 81 mg PO DAILY #90 tabs 07/06/24 release atorvastatin 40 mg tablet 40 mg PO HS 3 months #90 tabs 07/06/24 cetirizine 10 mg tablet 10 mg PO DAILY #90 tabs 07/06/24 clopidogrel 75 mg tablet 75 mg PO DAILY #90 tabs 07/06/24 ezetimibe 10 mg tablet 10 mg PO DAILY #90 tabs 07/06/24 fluticasone propionate 50 2 spray intranasal DAILY #16 grams 07/06/24 mcg/actuation nasal spray,suspension losartan 100 1 tab PO DAILY #90 tabs 07/06/24 mg-hydrochlorothiazide 25 mg tablet metformin 500 mg tablet 500 mg PO DAILY #90 tabs 07/06/24 cefdinir 300 mg capsule 300 mg PO BID 10 days #20 caps 09/12/24 Allergies Allergy/AdvReac Type Severity Reaction Status Date / Time ibuprofen Allergy Verified 07/06/24 15:00 [facility] <Sergei Bhandari MD - Last Filed: 09/12/24 15:14> [facility] Disclaimer: The information contained in this section may have been updated after the patient was seen, as this information can be updated by other users. Social History (System 06/28/24 @ 11:41 by Karl Adam) Smoking Status: Unknown if ever smoked alcohol intake: never current occupational status: disabled Travel in the last 8 weeks: None Have you lived/traveled outside [place] in past 30 days?: No Contact w/someone who lives/traveled outside US past 30 days?: No Exposure to someone with infectious disease in past 14 days?: No Do you have a fever (greater than 100.4 F or 38 C)?: No Have you tested positive for COVID-19: No Exposed to someone with COVID-19 in past 14 days?: No Do you have a sore throat?: No Do you have a cough?: No Do you have any weakness?: No Do you have any diarrhea?: No Are you experiencing any unusual bleeding?: No Do you have any muscle aches/pain?: No Do you have any abdominal pain?: No Are you experiencing loss of taste or smell?: No Other Medical History Have you received the Flu Vaccine for this season: No Have you received the Pneumonia Vaccine: No <Sergei Bhandari MD - Last Filed: 09/12/24 15:14> ROS Obtained: Yes All systems reviewed & no additional complaints except as documented Physical Exam <Sergei Bhandari MD - Last Filed: 09/12/24 15:14> General General appearance: alert, in no apparent distress, obese and other (Disheveled) Head Head exam: atraumatic and normocephalic Eye Eye exam: Present normal appearance, PERRL and EOMI ENT ENT exam: Present mucous membranes dry Neck Neck exam: Present normal inspection, full ROM and trachea midline Respiratory Respiratory exam: Present normal lung sounds bilaterally; Absent respiratory distress, wheezes, stridor, accessory muscle use or prolonged expiratory phase Cardiovascular Cardiovascular exam: Present regular rate, normal rhythm and other (Pulses equal symmetric in upper and lower extremities) Abdominal Exam Abdominal exam: Present soft; Absent distention, tenderness, guarding, rebound, rigidity or pulsatile mass Extremities Exam Extremities exam: Present other (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 Patient states this is normal.); Absent edema Neurological Exam Neurological exam: Present alert, oriented X3, CN II-XII intact and motor sensory deficit (4 out of 5 strength right upper and right lower extremity, normal, per patient); Absent normal gait (Patient has Trendelenburg gait limping on the right. States this is normal) Skin Skin exam: Present warm and dry; Absent diaphoresis or erythema Medical Decision Making <Sergei Bhandari MD - Last Filed: 09/12/24 15:14> Medical Records Medical records reviewed: Yes I reviewed the patient's medical records. Screening: Per USPSTF and CDC recommendations, given the prevalence of disease in our region, it is our hospital?s policy to screen for HIV and viral Hepatitis for all patients aged 18 and over and those with ongoing risk factors. [place] Inquiry Pt receiving controlled substance: No [place] was queried for this patient: No Vital Signs: 09/12/24 13:49 09/12/24 14:12 09/12/24 14:30 Temperature 98 F Temperature Source Oral Pulse Rate 97 H 88 Pulse Rate [Left Radial] 94 H Respiratory Rate 18 Blood Pressure 137/93 H 121/85 Blood Pressure [Right Arm] 137/93 H Blood Pressure Mean Blood Pressure Mean [Right Arm] 107 Blood Pressure Source 02 Sat by Pulse Oximetry 96 96 97 Oxygen Delivery Method Room Air Room Air Room Air 09/12/24 15:02 09/12/24 15:30 09/12/24 16:00 Temperature Temperature Source Pulse Rate 91 H 87 83 Pulse Rate [Left Radial] Respiratory Rate 12 16 Blood Pressure 140/97 H 141/101 H 142/82 H Blood Pressure [Right Arm] Blood Pressure Mean Blood Pressure Mean [Right Arm] Blood Pressure Source 02 Sat by Pulse Oximetry 98 96 97 Oxygen Delivery Method Room Air Room Air Room Air 09/12/24 16:30 09/12/24 17:01 09/12/24 17:30 Temperature Temperature Source Pulse Rate 84 83 89 Pulse Rate [Left Radial] Respiratory Rate 14 15 Blood Pressure 135/107 H 172/98 H 155/90 H Blood Pressure [Right Arm] Blood Pressure Mean Blood Pressure Mean [Right Arm] Blood Pressure Source 02 Sat by Pulse Oximetry 98 98 97 Oxygen Delivery Method Room Air Room Air Room Air 09/12/24 17:35 09/12/24 18:00 09/12/24 18:21 Temperature 98.0 F Temperature Source Oral Pulse Rate 77 85 90 Pulse Rate [Left Radial] Respiratory Rate 18 Blood Pressure 127/75 158/80 H 155/118 H Blood Pressure [Right Arm] Blood Pressure Mean Blood Pressure Mean [Right Arm] Blood Pressure Source Automatic Cuff 02 Sat by Pulse Oximetry 98 97 Oxygen Delivery Method Room Air Room Air Room Air 09/12/24 19:15 09/12/24 19:30 09/12/24 20:31 Temperature Temperature Source Pulse Rate 94 H 93 H 95 H Pulse Rate [Left Radial] Respiratory Rate Blood Pressure 147/90 H 127/88 132/108 H Blood Pressure [Right Arm] Blood Pressure Mean 116 Blood Pressure Mean [Right Arm] Blood Pressure Source 02 Sat by Pulse Oximetry 95 97 97 Oxygen Delivery Method Lab Data Lab Results 09/12/24 14:00: Urine Color Yellow, Urine Appearance Sl cloudy, Urine pH 6.0, Ur Specific [place] 1.025, Urine Protein Negative, Urine Glucose (UA) Negative, Urine Ketones Negative, Urine Blood Negative, Urine Nitrate Positive A, Urine Bilirubin Negative, Urine Urobilinogen 0.2, Ur Leukocyte Esterase 1+ A, Urine RBC Occasional, Urine WBC 20-50, Ur Squamous Epith Cells 3-5, Urine Bacteria 4+ 09/12/24 14:20: WBC 5.3, RBC 4.79, Hgb 14.5, Hct 44.0, MCV 91.9, MCH 30.3, MCHC 33.0, RDW 14.0, Plt Count 204, MPV 11.0 H, Neut % (Auto) 69.7, Lymph % (Auto) 20.5, [place] % (Auto) 6.8, Eos % (Auto) 2.6, Baso % (Auto) 0.2, Neut # (Auto) 3.7, Lymph # (Auto) 1.1, [place] # (Auto) 0.4, Eos # (Auto) 0.1, Baso # (Auto) 0.0, PT 10.2, INR 0.90, APTT 23.4, Sodium 137, Potassium 3.2 L, Chloride 103, Carbon Dioxide 28, Anion Gap 9.2, BUN 16, Creatinine 0.70, Estimated GFR 88, Est GFR ( Amer) 106, Glucose 117 H, Hemoglobin A1c 5.7, Calcium 9.9, Total Bilirubin 0.4, AST 38 H, ALT 32, Alkaline Phosphatase 117, Troponin I < 0.01, NT-Pro-B Natriuret Pep < 20.0, Total Protein 7.5, Albumin 4.3, Globulin 3.2, Albumin/Globulin Ratio 1.3, Triglycerides 84, Cholesterol 109 L, LDL Cholesterol Direct 49.22 L, VLDL Cholesterol 17, HDL Cholesterol 38 L, Cholesterol/HDL Ratio 2.9, TSH 1.33, Thyroxine (T4) 9.8, HCV Ab LIVAN w/Rflx PCR Qn Negative, HIV Ag/Ab Combo Qual Negative 09/12/24 14:20 09/12/24 14:20 Orders (Tests/Meds): ED MEDICATIONS Discontinued Medications Generic Name Dose Route Start Last Admin Trade Name Freq PRN Reason Stop Dose Admin Ceftriaxone Sodium 1 gm/ 50 mls @ 100 mls/hr 09/12/24 14:23 09/12/24 14:40 Sodium Chloride IV 09/12/24 14:52 100 mls/hr ONCE ONE Administration Iopamidol 80 ml 09/12/24 14:55 09/12/24 14:56 Iopamidol-370 (76%);100ml Bottle IV 09/12/24 14:56 80 ml ONCE ONE Administration Potassium Chloride 60 meq 09/12/24 14:39 09/12/24 14:41 Potassium Chloride 20meq Tab PO 09/12/24 14:40 60 meq ONCE ONE Administration Sodium Chloride 10 ml 09/12/24 14:55 09/12/24 14:56 Sodium Chloride 0.9% 10ml Syr (Rad Only) IV 09/12/24 14:56 10 ml ONCE ONE Administration Sodium Chloride 50 ml 09/12/24 14:55 09/12/24 14:56 0.9 % Sodium Chloride 50 Ml Vial IV 09/12/24 14:56 50 ml ONCE ONE Administration ORDERS Category Date Time Status CT angio head Stat Cat Scan 09/12/24 14:[address] angio neck Stat Cat Scan 09/12/24 14:[address] head/brain wo con Stat Cat Scan 09/12/24 14:09 Completed XR chest portable Stat Exams 09/12/24 14:09 Completed Complete Blood Count Auto Diff Stat Lab 09/12/24 14:20 Completed Comprehensive Metabolic Panel Stat Lab 09/12/24 14:20 Completed HIV Combo Stat Lab 09/12/24 14:20 Completed Hemoglobin A1C Stat Lab 09/12/24 14:20 Completed Hepatitis C Ab Qual. W/ RFX Stat Lab 09/12/24 14:20 Completed Lipid Panel Stat Lab 09/12/24 14:20 Completed NT Pro Brain Natriuretic Pep. Stat Lab 09/12/24 14:20 Completed PT INR [Prothrombin Time INR] Stat Lab 09/12/24 14:20 Completed PTT [Activated Partial Thrombo Time] Stat Lab 09/12/24 14:20 Completed T4 (Thyroxine) Stat Lab 09/12/24 14:20 Completed TSH [Thyroid Stimulating Hormone] Stat Lab 09/12/24 14:20 Completed Troponin I Q3H Lab 09/12/24 17:15 Ordered Troponin I Q3H Lab 09/12/24 20:15 Ordered Troponin I Stat Lab 09/12/24 14:20 Completed Urinalysis and Microscopic Stat Lab 09/12/24 14:00 Completed Urine Culture Stat Micro 09/12/24 14:00 Received Medical Decision Narrative: This is a 54-year-old female presenting from family with chief complaint of slurring speech. Family states that patient has not been taking her medications as she should. States that she has been slurring her speech for over a week. Patient disagrees with this and states that she feels completely at her baseline. Patient has no complaints. She states that she has weakness on her right upper and right lower extremity that is normal from a previous stroke. Has no new deficits, weakness, vision changes, facial weakness or any other complaints. No chest pain, infectious signs or symptoms, etc. Sister states that she, the patient, is recently homeless and brought her in out of concern for homelessness as well. Patient's family stating that they do not want to take her home to live with them, but do not state reason as to why. History was obtained via conversation with patient as well as family. On arrival, patient hemodynamically stable, alert, oriented x4, appropriate, GCS 15, moving all extremities spontaneously, pupils equal and reactive to light. Full physical exam performed and significant for chronically ill appearing female who is disheveled, but answer questions appropriately and in no acute distress. Chronic right-sided changes. NIHSS 2 for right sided weakness. Speaking in full sentences, no evidence of dysarthria or aphasia. Cardiac exam without murmurs gallops or rubs. Lungs are clear. She has Trendelenburg gait with limping on the right, but she states this is normal. Differential includes CVA, CAD, ACS, LA, pneumothorax, pneumonia, UTI, metabolic, endocrinologic, among others. I do also have concern for social neglect versus Munchhausen's by proxy versus malingering given family's unwillingness to discuss taking patient home and falsification of symptoms when dropping patient off with registration and not coming back to the room themselves. Patient placed on continuous cardiac monitoring and continuous pulse ox with initial blood pressure 137/93, heart rate 97, saturation 96%. Independent interpretation of EKG shows sinus rhythm with T wave inversions V2 V3 V4 V5 V6 with no reciprocal change. PA interval 138, QRS 85, QTc 436 with normal axis. Patient was given Rocephin for symptomatic management and correction of underlying abnormalities given initially positive UA. Workup independently interpreted and significant for nonactionable CBC. Chemistry mild hypokalemia and this was also repleted. Negative BNP and troponin. Thyroid studies normal. On independent interpretation of imaging, patient has old ischemia on the left side, but no evidence of intracranial hemorrhage or new acute ischemia. CTAs are pending at time of handoff to oncoming physician. Supervisor Nutritional Yeast disclaimer Much of this encounter note is an electronic commercial service technician spoken language to printed text. Electronic commercial service technician of the spoken language may permit errors. Although I have reviewed the note, some errors may still exist. <Holly Cherry, DO - Last Filed: 09/12/24 20:43> Vital Signs: 09/12/24 13:49 09/12/24 14:12 09/12/24 14:30 Temperature 98 F Temperature Source Oral Pulse Rate 97 H 88 Pulse Rate [Left Radial] 94 H Respiratory Rate 18 Blood Pressure 137/93 H 121/85 Blood Pressure [Right Arm] 137/93 H Blood Pressure Mean Blood Pressure Mean [Right Arm] 107 Blood Pressure Source 02 Sat by Pulse Oximetry 96 96 97 Oxygen Delivery Method Room Air Room Air Room Air 09/12/24 15:02 09/12/24 15:30 09/12/24 16:00 Temperature Temperature Source Pulse Rate 91 H 87 83 Pulse Rate [Left Radial] Respiratory Rate 12 16 Blood Pressure 140/97 H 141/101 H 142/82 H Blood Pressure [Right Arm] Blood Pressure Mean Blood Pressure Mean [Right Arm] Blood Pressure Source 02 Sat by Pulse Oximetry 98 96 97 Oxygen Delivery Method Room Air Room Air Room Air 09/12/24 16:30 09/12/24 17:01 09/12/24 17:30 Temperature Temperature Source Pulse Rate 84 83 89 Pulse Rate [Left Radial] Respiratory Rate 14 15 Blood Pressure 135/107 H 172/98 H 155/90 H Blood Pressure [Right Arm] Blood Pressure Mean Blood Pressure Mean [Right Arm] Blood Pressure Source 02 Sat by Pulse Oximetry 98 98 97 Oxygen Delivery Method Room Air Room Air Room Air 09/12/24 17:35 09/12/24 18:00 09/12/24 18:21 Temperature 98.0 F Temperature Source Oral Pulse Rate 77 85 90 Pulse Rate [Left Radial] Respiratory Rate 18 Blood Pressure 127/75 158/80 H 155/118 H Blood Pressure [Right Arm] Blood Pressure Mean Blood Pressure Mean [Right Arm] Blood Pressure Source Automatic Cuff 02 Sat by Pulse Oximetry 98 97 Oxygen Delivery Method Room Air Room Air Room Air 09/12/24 19:15 09/12/24 19:30 09/12/24 20:31 Temperature Temperature Source Pulse Rate 94 H 93 H 95 H Pulse Rate [Left Radial] Respiratory Rate Blood Pressure 147/90 H 127/88 132/108 H Blood Pressure [Right Arm] Blood Pressure Mean 116 Blood Pressure Mean [Right Arm] Blood Pressure Source 02 Sat by Pulse Oximetry 95 97 97 Oxygen Delivery Method Lab Data Lab Results 09/12/24 14:00: Urine Color Yellow, Urine Appearance Sl cloudy, Urine pH 6.0, Ur Specific [place] 1.025, Urine Protein Negative, Urine Glucose (UA) Negative, Urine Ketones Negative, Urine Blood Negative, Urine Nitrate Positive A, Urine Bilirubin Negative, Urine Urobilinogen 0.2, Ur Leukocyte Esterase 1+ A, Urine RBC Occasional, Urine WBC 20-50, Ur Squamous Epith Cells 3-5, Urine Bacteria 4+ 09/12/24 14:20: WBC 5.3, RBC 4.79, Hgb 14.5, Hct 44.0, MCV 91.9, MCH 30.3, MCHC 33.0, RDW 14.0, Plt Count 204, MPV 11.0 H, Neut % (Auto) 69.7, Lymph % (Auto) 20.5, [place] % (Auto) 6.8, Eos % (Auto) 2.6, Baso % (Auto) 0.2, Neut # (Auto) 3.7, Lymph # (Auto) 1.1, [place] # (Auto) 0.4, Eos # (Auto) 0.1, Baso # (Auto) 0.0, PT 10.2, INR 0.90, APTT 23.4, Sodium 137, Potassium 3.2 L, Chloride 103, Carbon Dioxide 28, Anion Gap 9.2, BUN 16, Creatinine 0.70, Estimated GFR 88, Est GFR ( Amer) 106, Glucose 117 H, Hemoglobin A1c 5.7, Calcium 9.9, Total Bilirubin 0.4, AST 38 H, ALT 32, Alkaline Phosphatase 117, Troponin I < 0.01, NT-Pro-B Natriuret Pep < 20.0, Total Protein 7.5, Albumin 4.3, Globulin 3.2, Albumin/Globulin Ratio 1.3, Triglycerides 84, Cholesterol 109 L, LDL Cholesterol Direct 49.22 L, VLDL Cholesterol 17, HDL Cholesterol 38 L, Cholesterol/HDL Ratio 2.9, TSH 1.33, Thyroxine (T4) 9.8, HCV Ab LIVAN w/Rflx PCR Qn Negative, HIV Ag/Ab Combo Qual Negative Orders (Tests/Meds): ED MEDICATIONS Discontinued Medications Generic Name Dose Route Start Last Admin Trade Name Freq PRN Reason Stop Dose Admin Ceftriaxone Sodium 1 gm/ 50 mls @ 100 mls/hr 09/12/24 14:23 09/12/24 14:40 Sodium Chloride IV 09/12/24 14:52 100 mls/hr ONCE ONE Administration Iopamidol 80 ml 09/12/24 14:55 09/12/24 14:56 Iopamidol-370 (76%);100ml Bottle IV 09/12/24 14:56 80 ml ONCE ONE Administration Potassium Chloride 60 meq 09/12/24 14:39 09/12/24 14:41 Potassium Chloride 20meq Tab PO 09/12/24 14:40 60 meq ONCE ONE Administration Sodium Chloride 10 ml 09/12/24 14:55 09/12/24 14:56 Sodium Chloride 0.9% 10ml Syr (Rad Only) IV 09/12/24 14:56 10 ml ONCE ONE Administration Sodium Chloride 50 ml 09/12/24 14:55 09/12/24 14:56 0.9 % Sodium Chloride 50 Ml Vial IV 09/12/24 14:56 50 ml ONCE ONE Administration ORDERS Category Date Time Status CT angio head Stat Cat Scan 09/12/24 14:[address] angio neck Stat Cat Scan 09/12/24 14:[address] head/brain wo con Stat Cat Scan 09/12/24 14:09 Completed XR chest portable Stat Exams 09/12/24 14:09 Completed Complete Blood Count Auto Diff Stat Lab 09/12/24 14:20 Completed Comprehensive Metabolic Panel Stat Lab 09/12/24 14:20 Completed HIV Combo Stat Lab 09/12/24 14:20 Completed Hemoglobin A1C Stat Lab 09/12/24 14:20 Completed Hepatitis C Ab Qual. W/ RFX Stat Lab 09/12/24 14:20 Completed Lipid Panel Stat Lab 09/12/24 14:20 Completed NT Pro Brain Natriuretic Pep. Stat Lab 09/12/24 14:20 Completed PT INR [Prothrombin Time INR] Stat Lab 09/12/24 14:20 Completed PTT [Activated Partial Thrombo Time] Stat Lab 09/12/24 14:20 Completed T4 (Thyroxine) Stat Lab 09/12/24 14:20 Completed TSH [Thyroid Stimulating Hormone] Stat Lab 09/12/24 14:20 Completed Troponin I Q3H Lab 09/12/24 17:15 Ordered Troponin I Q3H Lab 09/12/24 20:15 Ordered Troponin I Stat Lab 09/12/24 14:20 Completed Urinalysis and Microscopic Stat Lab 09/12/24 14:00 Completed Urine Culture Stat Micro 09/12/24 14:00 Received Medical Decision Narrative: This is a 54-year-old female presenting from family with chief complaint of slurring speech. Family states that patient has not been taking her medications as she should. States that she has been slurring her speech for over a week. Patient disagrees with this and states that she feels completely at her baseline. Patient has no complaints. She states that she has weakness on her right upper and right lower extremity that is normal from a previous stroke. Has no new deficits, weakness, vision changes, facial weakness or any other complaints. No chest pain, infectious signs or symptoms, etc. Sister states that she, the patient, is recently homeless and brought her in out of concern for homelessness as well. Patient's family stating that they do not want to take her home to live with them, but do not state reason as to why. History was obtained via conversation with patient as well as family. On arrival, patient hemodynamically stable, alert, oriented x4, appropriate, GCS 15, moving all extremities spontaneously, pupils equal and reactive to light. Full physical exam performed and significant for chronically ill appearing female who is disheveled, but answer questions appropriately and in no acute distress. Chronic right-sided changes. NIHSS 2 for right sided weakness. Speaking in full sentences, no evidence of dysarthria or aphasia. Cardiac exam without murmurs gallops or rubs. Lungs are clear. She has Trendelenburg gait with limping on the right, but she states this is normal. Differential includes CVA, CAD, ACS, LA, pneumothorax, pneumonia, UTI, metabolic, endocrinologic, among others. I do also have concern for social neglect versus Munchhausen's by proxy versus malingering given family's unwillingness to discuss taking patient home and falsification of symptoms when dropping patient off with registration and not coming back to the room themselves. Patient placed on continuous cardiac monitoring and continuous pulse ox with initial blood pressure 137/93, heart rate 97, saturation 96%. Independent interpretation of EKG shows sinus rhythm with T wave inversions V2 V3 V4 V5 V6 with no reciprocal change. PA interval 138, QRS 85, QTc 436 with normal axis. Patient was given Rocephin for symptomatic management and correction of underlying abnormalities given initially positive UA. Workup independently interpreted and significant for nonactionable CBC. Chemistry mild hypokalemia and this was also repleted. Negative BNP and troponin. Thyroid studies normal. On independent interpretation of imaging, patient has old ischemia on the left side, but no evidence of intracranial hemorrhage or new acute ischemia. CTAs are pending at time of handoff to oncoming physician. Supervisor Nutritional Yeast disclaimer Much of this encounter note is an electronic commercial service technician spoken language to printed text. Electronic commercial service technician of the spoken language may permit errors. Although I have reviewed the note, some errors may still exist. DO Dilip: I assumed care of the patient at 1500 at time of departure of the previous provider. Patient is sitting upright in bed in no acute distress and is ambulatory to the bathroom without issue. PT/OT evaluated her and noted that she is functional and able to do things on her own. She is alert and oriented, however she appears cognitively impaired and does not demonstrate good understanding of her health and caring for herself. I worry that she would not be able to make decisions for herself or care for herself given her cognition. She appears to be at her neurologic baseline on my review of prior medical records. Her sister typically takes care for her from what I understand, and that is who dropped her off today. CT scans not concerning for acute stroke, only chronic disease for which the patient is already on aspirin and statin. Exam is overall very reassuring with normal vital signs on cardiac telemetry. She does have a urinary tract infection but she has no significant leukocytosis or DONNA. She has hypokalemia for which oral replacement was ordered. Overall, at this time it is felt the patient is appropriate for discharge and she is at her neurologic baseline with reassuring exam and no recommendations for acute rehab/placement given that she is ambulatory and functional. Again, I do worry about her cognitive ability, but I do feel she can be released to the care of family that she is previously been in since she is at her neurologic baseline. We made multiple attempts to contact her sister who she lives with who dropped her off. We made multiple unsuccessful attempts to contact over an hour, at which point I spoke with care management who advised they recommended doing a well check at the patient's address. If the family does not come and get her, we will plan to file APS report for abandonment per care management recommendations. We spoke with patient's [id number], Jovani Barrera, who advised that the patient does not live with them, they were just advised to come and get her by a friend who she was living with. They came and got her and brought her to the ED because the friend that she had been living with said that they were concerned about her health and she needed to be seen. They stated that she cannot live with them, and she cannot go back to live with a friend because the friend is going to skilled nursing. Her other brother who is other next of kin is also in skilled nursing. Ultimately, we do not have a safe disposition and she does not demonstrate good capacity and decision making for herself. Given this, the hospitalist admitted the patient in stable condition after multiple discussions with care management. Critical Care <Sergei Bhandari MD - Last Filed: 09/12/24 15:14> Critical Care Time Critical Care Time: No
[2024-09-12 14:30] LABS: Basophils % 0.2 % (0.1-2.0); Eosinophils # 0.1 K/mm3 (0.0-0.4); Eosinophils % 2.6 % (0.1-12.0); Hemoglobin 14.5 g/dL (12.2-16.2); Lymphocytes # 1.1 K/mm3 (0.7-4.5); Lymphocytes % 20.5 % (10-50); Mean Corpuscular Hemoglobin 30.3 pg (27.0-31.2); Mean Corpuscular Volume 91.9 fl (81-99); Monocytes # 0.4 K/mm3 (0.1-1.0); Monocytes % 6.8 % (1.7-9.3); Neutrophils # 3.7 K/mm3 (1.8-7.8); Neutrophils % 69.7 % (37.0-80.0); Platelet Count 204 K/mm3 (142-424); Red Blood Count 4.79 M/mm3 (4.20-5.40); White Blood Count 5.3 K/mm3 (4.8-10.8)
--- NOTE | 2024-09-12 14:30 | SW/DCPLANNER ---
Addendum entered by [facility] 09/14/24 13:19: Veronica w/ [facility] stated they can transport patient at time of discharge today around 2PM. Addendum entered by [facility] 09/14/24 12:21: I have called and updated patient's brother via phone regarding discharge to [facility] today. Addendum entered by [facility] 09/14/24 10:35: Patient will discharge to [facility] today. I will arrange [facility] once patient is medically stable for discharge. I have updated Sejal/Christine. Addendum entered by [facility] 09/13/24 15:02: Veronica w/ [facility] stated that she can accept this patient tomorrow morning. I will update patient, family and MD. Addendum entered by [facility] 09/13/24 10:13: Veronica and Susan young/ [facility] at bedside to evaluate patient. Veronica stated that she will now need to speak w/ other family members then will follow up w/ me. Veronica is aware that patient is medically stable for discharge. Addendum entered by [facility] 09/13/24 08:49: Patient is agreeable this AM to be evaluated by [facility]. CM will continue to update patient's family as well. Addendum entered by [facility] 09/13/24 08:01: Sejal young/ [facility] and [facility] will be at bedside at 9AM to evaluate patient for placement. Original Note: I received a call from ED staff regarding family members of this patient wanting to speak w/ me. Per patient's sister (Amy) patient is homeless, drags her left leg and has possibly had another stroke. Per Amy patient is homeless and will need placement. I did explain to Amy that MD is still working patient up in ED but if patient does not have a medical reason to be admitted to hospital we would discharge home or to homeless residential. Amy stated that patient was in shelter in the past and would need to return. I also explained to Amy that PT/OT has been ordered as well. I did discuss case w/ ER MD. I will continue to follow up w/ ED staff regarding situation. I am currently waiting for ED workup and PT/OT evaluation.
[2024-09-12 14:32] LABS: Chloride 103 mmol/L (98-107)
[2024-09-12 14:33] LABS: Albumin Level 4.3 g/dl (3.5-5.0); Potassium 3.2 mmoL/L (3.5-5.1); Sodium 137 mmol/L (136-145)
[2024-09-12 14:35] LABS: Alanine Aminotransferase 32 U/L (12-78); Blood Urea Nitrogen 16 mg/dl (7-17); Estimated Glomerular Filt Rate 88 ml/min (>60); GFR (African American) 106 ML/MIN (>60)
[2024-09-12 14:36] LABS: Albumin/Globulin Ratio 1.3 (1.1-1.8); Alkaline Phosphatase 117 U/L (38-126); Anion Gap 9.2 mEq/L (5-15); Aspartate Amino Transferase 38 U/L (14-36); Bilirubin,Total 0.4 mg/dl (0.2-1.3); Calcium 9.9 mg/dl (8.4-10.2); Carbon Dioxide 28 mmol/L (22.0-30.0); Chol/HDL Ratio 2.9 (1-3.5); Cholesterol 109 mg/dl (140-200); Globulin 3.2 g/dL (1.3-3.2); Glucose 117 mg/dl (74-100); HDL Cholesterol 38 mg/dl (40-60); Total Protein,Serum 7.5 g/dl (6.3-8.2); Triglycerides 84 mg/dl (30-150); VLDL Cholesterol 17 mg/dL (0-40)
[2024-09-12 14:38] LABS: Activated Partial Thrombo Time 23.4 seconds (22.8-30.6); Prothrombin Time 10.2 seconds (10.1-12.5)
[2024-09-12] MEDS: CEFTRIAXONE 1 GM 1 GM in 0.9 % SODIUM CHLORIDE 50 ML IV (14:40)
[2024-09-12] MEDS: POTASSIUM CHLORIDE 20MEQ TAB 60 MEQ PO (14:41)
[2024-09-12 14:47] LABS: Direct LDL Cholesterol 49.22 mg/dL (100-129)
[2024-09-12 14:49] LABS: NT Pro Brain Natriuretic Pep. < 20.0 pg/mL (0-125)
[2024-09-12 14:53] LABS: Troponin I < 0.01 ng/ml (0.00-0.034)
[2024-09-12] MEDS: IOPAMIDOL-370 (76%);100ML BOTTLE 80 ML IV (14:56)
[2024-09-12] MEDS: SODIUM CHLORIDE 0.9% 10ML SYR (RAD ONLY) 10 ML IV (14:56)
[2024-09-12] MEDS: 0.9 % SODIUM CHLORIDE 50 ML VIAL IV (14:56)
[2024-09-12 14:57] LABS: T4 (Thyroxine) 9.8 ug/dl (5.53-11.0)
[2024-09-12 15:00] LABS: Bacteria,Urine 4+ /lpf; RBC,Urine Occasional #/hpf (0-3); WBC,Urine 20-50 #/hpf (0-3)
[2024-09-12 15:10] LABS: Thyroid Stimulating Hormone 1.33 uIU/mL (0.465-4.68)
[2024-09-12 15:13] LABS: Hemoglobin A1C 5.7 % (4.0-6.0)
--- NOTE | 2024-09-12 15:19 | PC.NURSE ---
PT/OT AT BEDSIDE
--- NOTE | 2024-09-12 15:37 | HMH.PTEV ---
Physical Therapy Evaluation Rehab PT IP Evaluation Start: 09/12/24 14:24 Freq: ONCE Status: Active Protocol: Document 09/12/24 15:31 ROBERT (Rec: 09/12/24 15:36 ROBERT [id number]) Subjective/History History History Per H&P: This is a 54-year-old female presenting from family with chief complaint of slurring speech. Family states that patient has not been taking her medications as she should. States that she has been slurring her speech for over a week. Patient disagrees with this and states that she feels completely at her baseline. Patient has no complaints. She states that she has weakness on her right upper and right lower extremity that is normal from a previous stroke. Has no new deficits, weakness, vision changes, facial weakness or any other complaints. No chest pain, infectious signs or symptoms, etc. Sister states that she, the patient, is recently homeless and brought her in out of concern for homelessness as well. Patient's family stating that they do not want to take her home to live with them, but do not state reason as to why. History was obtained via conversation with patient as well as family. On arrival, patient hemodynamically stable , alert, oriented x4, appropriate, GCS 15, moving all extremities spontaneously, pupils equal and reactive to light. Full physical exam performed and significant for chronically ill appearing female who is disheveled, but answer questions appropriately and in no acute distress. Chronic right-sided changes. NIHSS 2 for right sided weakness. Speaking in full sentences, no evidence of dysarthria or aphasia. Cardiac exam without murmurs gallops or rubs. Lungs are clear. She has Trendelenburg gait with limping on the right , but she states this is normal. Differential includes CVA, CAD, ACS, DC, pneumothorax, pneumonia, UTI, metabolic, endocrinologic, among others. I do also have concern for social neglect versus Munchhausen's by proxy versus malingering given family's unwillingness to discuss taking patient home and falsification of symptoms when dropping patient off with registration and not coming back to the room themselves. Patient placed on continuous cardiac monitoring and continuous pulse ox with initial blood pressure 137/93, heart rate 97, saturation 96% . Independent interpretation of EKG shows sinus rhythm with T wave inversions V2 V3 V4 V5 V6 with no reciprocal change. ME interval 138, QRS 85, QTc 436 with normal axis. Patient was given Rocephin for symptomatic management and correction of underlying abnormalities given initially positive UA. Workup independently interpreted and significant for nonactionable CBC. Chemistry mild hypokalemia and this was also repleted. Negative BNP and troponin. Thyroid studies normal. On independent interpretation of imaging, patient has old ischemia on the left side, but no evidence of intracranial hemorrhage or new acute ischemia. CTAs are pending at time of handoff to oncoming physician. Subjective Subjective The pt is oriented to PPT x3. The pt reports that she lives at home with her brother. She reports that she sometimes needs help dressing. She reports that she does not utilize a walker or cane for mobility. She denies falls. Reports that she has been getting up and walking to the restroom on her own. New diagnosis of cancer in past 12 No months? Rehab PT IP Eval Objective Appearance Patient Behavior Patient Baseline Patient Orientation Person,Place,Birthday Difficulty following instructions none Speech Pattern Clear Ambulation Patient Able to Ambulate Yes Ambulation Observation IP General Gait Pattern Observation Wide Based Gait,Shuffling Step Ambulation Distance (feet) 25 Ambulation Assistive Device None Ambulation Ability Supervision/Stand by Balance Ability to Arise Able, w/o using arms Sitting Balance Steady, safe Standing Balance Steady, wide stance Dynamic Sitting Balance Ability Good Dynamic Standing Balance Ability Good Transfers Bed Transfer Ability Independent Chair Transfer Ability Independent Sit to Stand Bed Transfer Ability Independent Sit to Stand Chair Transfer Ability Independent Rehab PT IP prob,goals,plan Problems Date of Evaluation: 09/12/24 Rehab Potential Rehab Potential Innapropriate for Skilled Therapy Discharge Plan PT Discharge Plan PT is recommending discharge to home with family assist, when deemed medically stable. The pt does not required skilled therapy during her hospital stay. Eval Complexity Eval Charge Codes 90165 - Moderate Complexity PHYSICIAN CERTIFICATION: I certify the specified therapy services for Matilda Charles are required, authorized, and reviewed every 30 days.
[2024-09-12 15:54] LABS: HIV Combo NEGATIVE (Negative)
[2024-09-12 16:02] LABS: Hepatitis C Ab Qual. W/ RFX NEGATIVE (Negative)
--- NOTE | 2024-09-12 16:16 | HMH.OTEV ---
OT Inpatient Evaluation Rehab OT IP Evaluation Start: 09/12/24 14:24 Freq: ONCE Status: Active Protocol: Document 09/12/24 16:02 CAMTARAN (Rec: 09/12/24 16:16 CAMTARAN [id number]) Rehab OT IP Assessment Subjective History This is a 54-year-old female presenting from family with chief complaint of slurring speech. Family states that patient has not been taking her medications as she should. States that she has been slurring her speech for over a week. Patient disagrees with this and states that she feels completely at her baseline. Patient has no complaints. She states that she has weakness on her right upper and right lower extremity that is normal from a previous stroke. Has no new deficits, weakness, vision changes, facial weakness or any other complaints. No chest pain, infectious signs or symptoms, etc. Sister states that she, the patient, is recently homeless and brought her in out of concern for homelessness as well. Patient's family stating that they do not want to take her home to live with them, but do not state reason as to why. History was obtained via conversation with patient as well as family. On arrival, patient hemodynamically stable , alert, oriented x4, appropriate, GCS 15, moving all extremities spontaneously, pupils equal and reactive to light. Full physical exam performed and significant for chronically ill appearing female who is disheveled, but answer questions appropriately and in no acute distress. Chronic right-sided changes. NIHSS 2 for right sided weakness. Speaking in full sentences, no evidence of dysarthria or aphasia. Cardiac exam without murmurs gallops or rubs. Lungs are clear. She has Trendelenburg gait with limping on the right , but she states this is normal. Differential includes CVA, CAD, ACS, MS, pneumothorax, pneumonia, UTI, metabolic, endocrinologic, among others. I do also have concern for social neglect versus Munchhausen's by proxy versus malingering given family's unwillingness to discuss taking patient home and falsification of symptoms when dropping patient off with registration and not coming back to the room themselves. Patient placed on continuous cardiac monitoring and continuous pulse ox with initial blood pressure 137/93, heart rate 97, saturation 96% . Independent interpretation of EKG shows sinus rhythm with T wave inversions V2 V3 V4 V5 V6 with no reciprocal change. AK interval 138, QRS 85, QTc 436 with normal axis. Patient was given Rocephin for symptomatic management and correction of underlying abnormalities given initially positive UA. Workup independently interpreted and significant for nonactionable CBC. Chemistry mild hypokalemia and this was also repleted. Negative BNP and troponin. Thyroid studies normal. On independent interpretation of imaging, patient has old ischemia on the left side, but no evidence of intracranial hemorrhage or new acute ischemia. CTAs are pending at time of handoff to oncoming physician. Tray Line Worker disclaimer Much of this encounter note is an electronic calculating machine operator spoken language to printed text. Electronic calculating machine operator of the spoken language may permit errors. Although I have reviewed the note, some errors may still exist. Patient lives at home with family. Patient verbalize ambulating independently and complete all ADLs independently. Family provided limited assistance with ADLs. Subjective I can get up. Analysis Patient's safety awareness to complete bed mobility from supine->sit @ EOB->stand->ambulate within room with CGA. No LOB noted. Patient appears to be at baseline. Left Patient sitting upright in bed with needs met at end of session. Objective Patient Orientation Person,Place Right Upper Extremity Gross ROM Unable to move Left Upper Extremity Gross ROM WFL Bed Mobility bed mobility - supine/sit Assist Level Supervision/Stand by Transfer Training Sit/Stand Transfer Assist Level Contact Guard/Hand Hold Chair Transfer Ability Contact Guard/Hand Hold Rehab OT IP prob,goals,plan Problems Date of Evaluation: 09/12/24 Rehab Potential Rehab Potential Innapropriate for Skilled Therapy Discharge Plan OT Discharge Plan Patient appears to be at her baseline with ADLs and fx'l mobility. Patient has right side hemiplegia from previous strokes years ago. Patient is left side dominant. Recommend LONG TERM or return back home with family. Eval Complexity Eval Charge Codes 56373 - Low Complexity PHYSICIAN CERTIFICATION: I certify the specified therapy services for Matilda Charles are required, authorized, and reviewed every 30 days.
--- NOTE | 2024-09-12 16:19 | PC.NURSE ---
ATTEMPTED TO REACH PT'S SISTER, NO ANSWER. PT ALSO ATTEMPTED TO REACH SISTER WITHOUT ANSWER. INSTRUCTED PT TO CALL STAFF IF SISTER CALLS BACK.
--- NOTE | 2024-09-12 16:53 | PC.NURSE ---
MULTIPLE ATTEMPTS FROM STAFF AND PT TO REACH SISTER, NO ANSWER
--- NOTE | 2024-09-12 17:22 | PC.NURSE ---
Dr. Jaeger, Dr. Cherry, and Shiloh Otto had a conversation regarding pt in the ER. She is unable to go to a homeless detention. We called [facility] to complete welfare check.
--- NOTE | 2024-09-12 17:23 | PC.NURSE ---
[facility] CONTACTED AT THIS TIME TO SEND SOMEONE FROM [facility]S DEPT TO CONTACT SISTER (BIBIANA) TO COME PICK PT UP
--- NOTE | 2024-09-12 17:45 | PC.NURSE ---
FINALLY SPOKE WITH SHANNA, WHO STATES THAT PT HAS NO HOME, SHE HAS BEEN STAYING WITH A FRIEND AND THE FRIEND CALLED FAMILY TO COME GET PT AND TAKE HER TO THE HOSPITAL. REPORTS PT DOES NOT HAVE A HOME AND FAMILY DOES NOT HAVE ROOM TO HAVE PT LIVE WITH THEM. SHANNA WANTS [facility] TO KEEP PT AND PLACE HER IN A CORRECTION. STATES HE WILL CALL BACK
--- NOTE | 2024-09-12 18:00 | PC.NURSE ---
Dr Cherry talking to Dr Ferguson about pt.
--- NOTE | 2024-09-12 18:26 | PC.NURSE ---
SUPPER TRAY SET-UP FOR PT
--- NOTE | 2024-09-12 18:51 | PC.NURSE ---
SPOKE WITH ENRIQUE FROM CARE MANAGEMENT, WORKING ON DISCHARGE PLAN, WILL BE IN CONTACT WITH ED STAFF
--- NOTE | 2024-09-12 19:00 | PC.NURSE ---
Dr. Cherry is s/w Amanda in Care Management
--- NOTE | 2024-09-12 19:54 | PC.NURSE ---
Care management called, still awaiting contact form physician. Dr. Cherry notified.
--- NOTE | 2024-09-12 20:36 | CARE MANAGER ---
Received call from Dr. Jaeger that Dr. Cherry in ER was unsure what to do with patient as she was medically stable and family would not pick patient up. Called and spoke with Justyna in the ER who states that they have spoken with the family, but they are unable to have patient stay with them. I called and spoke with patient's brother, Jovani. He states the person the patient was living with is unwilling to take her back with them and he in fact is likely going to intermediate tomorrow. Jovani is unable to take patient home with him as there is no room as his and mother live with him in [place]. We discussed the possibility of a personal detention. Dr. Cherry states there is a cognitive delay and the patient can answer some questions, but is very childlike in responses and often repeats what is said to her. DENY Matamoros, spoke with Sejal and she states that she can evaluate patient tomorrow. He did call the patient's aunt to see if she could stay the night with her and then follow up with Sejal from [facility]. However, the aunt was unable to allow the patient to stay with her. I suggested to Dr. Jaeger he admit for observation with Sejal to evaluate patient tomorrow. Brother states he can come tomorrow and take her or help complete any paperwork.
[2024-09-12] MEDS: humaLOG 100 UNITS/ML 10ML VIAL (SSI) SUBCUT (22:10)
[2024-09-12 22:11] LABS: POC Glucose,Bedside 165 (70-110)
--- NOTE | 2024-09-12 22:14 | PC.NURSE ---
PATIENT ARRIVED TO FLOOR VIA WHEELCHAIR FROM ED AT 21:56.
--- NOTE | 2024-09-12 23:02 | PC.NURSE ---
Entry for 22:00 to now: I checked the patient's glucose by fingerstick upon arrival to the floor (at 22:03) and the reading was 165. I administered Lispro insulin per sliding scale per OCT. Atul CLIFFORD was paged at this time to clarify the sliding scale order (originally ordered for every 6 hours). She stated that she meant to enter it in as ACHS. Sliding scale will be administered ACHS per OCT. Admission assessment and home medication reconciliation has been completed. Patient has home medications locked inside the [facility].
--- NOTE | 2024-09-12 23:12 | EXP.HP ---
History of Present Illness *Admission Date: 09/12/24 *Reason for visit:: Failure to thrive *History of present illness: This is a 54-year-old female with a past medical history of prior CVA with right-sided weakness, housing instability who presents to the emergency department today for further evaluation of generalized weakness and homelessness. Patient reportedly was staying with a friend and the friend became concerned about her wellbeing so called the family to bring her to the emergency department. Upon arrival to the emergency department patient states that she feels like she is at her normal baseline. During initial exam, family was unable to be contacted for further collateral or discharge. They were finally able to contact family and family states that they will not be taking her into their home and are unable to do so but do not elaborate. Patient denies any symptoms but does smell strongly of urine. Urinalysis positive for nitrates, pyuria and bacteria. Labs otherwise stable. Given her housing instability and acute cystitis, she will be admitted to the hospitalist service. Case management has been consulted and assisting with post acute care dispo. [facility] Disclaimer: The information contained in this section may have been updated after the patient was seen, as this information can be updated by other users. Social History Smoking Status: Current every day smoker alcohol intake: never current occupational status: disabled Travel in the last 8 weeks: None Have you lived/traveled outside [place] in past 30 days?: No Contact w/someone who lives/traveled outside US past 30 days?: No Exposure to someone with infectious disease in past 14 days?: No Do you have a fever (greater than 100.4 F or 38 C)?: No Have you tested positive for COVID-19: No Exposed to someone with COVID-19 in past 14 days?: No Do you have a sore throat?: No Do you have a cough?: No Do you have any weakness?: No Do you have any diarrhea?: No Are you experiencing any unusual bleeding?: No Do you have any muscle aches/pain?: No Do you have any abdominal pain?: No Are you experiencing loss of taste or smell?: No Other Medical History Have you received the Flu Vaccine for this season: No Have you received the Pneumonia Vaccine: No Review of Systems Review of Systems Review of systems:: pertinent systems reviewed and negative unless documented below Review of systems (narrative): Negative except for HPI Meds Home Medications and Allergies Home Medications ?Medication ?Instructions ?Recorded ?Confirmed ?Type aspirin 81 mg tablet,delayed 81 mg PO DAILY #90 tabs 09/13/24 Rx release atorvastatin 40 mg tablet 40 mg PO HS 3 months #90 tabs 09/13/24 Rx cefdinir 300 mg capsule 300 mg PO Q12H 5 days #10 caps 09/13/24 Rx cetirizine 10 mg tablet 10 mg PO DAILY #90 tabs 09/13/24 Rx clopidogrel 75 mg tablet 75 mg PO DAILY #90 tabs 09/13/24 Rx ergocalciferol (vitamin D2) 1,250 50,000 unit PO WEEKLY #4 caps 09/13/24 Rx mcg (50,000 unit) capsule (Vitamin D2) escitalopram oxalate 10 mg tablet 10 mg PO DAILY #30 tabs 09/13/24 Rx ezetimibe 10 mg tablet 10 mg PO DAILY #90 tabs 09/13/24 Rx fluticasone propionate 50 2 spray intranasal DAILY #16 grams 09/13/24 Rx mcg/actuation nasal spray,suspension losartan 100 1 tab PO DAILY #90 tabs 09/13/24 Rx mg-hydrochlorothiazide 25 mg tablet metformin 500 mg tablet 500 mg PO DAILY #90 tabs 09/13/24 Rx New Prescriptions to Start Prescriptions: aspirin Fermin Jaeger atorvastatin Fermin Jaeger cefdinir Fermin Jaeger cetirizine Mil,Fermin clopidogrel Fermin Jaeger ergocalciferol (vitamin D2) [Vitamin D2] Fermin Jaeger escitalopram oxalate Mil,Fermin ezetimibe Fermin Jaeger fluticasone propionate Fermin Jaeger losartan-hydrochlorothiazide Mil,Fermin metformin Fermin Jaeger Allergies Allergy/AdvReac Type Severity Reaction Status Date / Time ibuprofen Allergy Verified 07/06/24 15:00 Exam Data for Last 24 hours Vital signs and Labs for Last 24 Hours: Temp Pulse Resp BP Pulse Ox O2 Del Method 98.7 F 92 H 16 138/86 97 Room Air 09/12/24 22:41 09/12/24 22:41 09/12/24 22:41 09/12/24 22:41 09/12/24 22:41 09/12/24 22:41 Laboratory Results - last 24 hr 09/12/24 14:00: Urine Color Yellow, Urine Appearance Sl cloudy, Urine pH 6.0, Ur Specific [place] 1.025, Urine Protein Negative, Urine Glucose (UA) Negative, Urine Ketones Negative, Urine Blood Negative, Urine Nitrate Positive A, Urine Bilirubin Negative, Urine Urobilinogen 0.2, Ur Leukocyte Esterase 1+ A, Urine RBC Occasional, Urine WBC 20-50, Ur Squamous Epith Cells 3-5, Urine Bacteria 4+ 09/12/24 14:20: WBC 5.3, RBC 4.79, Hgb 14.5, Hct 44.0, MCV 91.9, MCH 30.3, MCHC 33.0, RDW 14.0, Plt Count 204, MPV 11.0 H, Neut % (Auto) 69.7, Lymph % (Auto) 20.5, [place] % (Auto) 6.8, Eos % (Auto) 2.6, Baso % (Auto) 0.2, Neut # (Auto) 3.7, Lymph # (Auto) 1.1, [place] # (Auto) 0.4, Eos # (Auto) 0.1, Baso # (Auto) 0.0, PT 10.2, INR 0.90, APTT 23.4, Sodium 137, Potassium 3.2 L, Chloride 103, Carbon Dioxide 28, Anion Gap 9.2, BUN 16, Creatinine 0.70, Estimated GFR 88, Est GFR ( Amer) 106, Glucose 117 H, Hemoglobin A1c 5.7, Calcium 9.9, Total Bilirubin 0.4, AST 38 H, ALT 32, Alkaline Phosphatase 117, Troponin I < 0.01, NT-Pro-B Natriuret Pep < 20.0, Total Protein 7.5, Albumin 4.3, Globulin 3.2, Albumin/Globulin Ratio 1.3, Triglycerides 84, Cholesterol 109 L, LDL Cholesterol Direct 49.22 L, VLDL Cholesterol 17, HDL Cholesterol 38 L, Cholesterol/HDL Ratio 2.9, TSH 1.33, Thyroxine (T4) 9.8, HCV Ab LIVAN w/Rflx PCR Qn Negative, HIV Ag/Ab Combo Qual Negative 09/12/24 22:03: POC Glucose 165 H I & O for Last 24 hours: Intake & Output 09/09/24 09/10/24 09/11/24 09/12/24 23:59 23:59 23:59 23:59 Weight 76.521 kg Constitutional Constitutional: no acute distress *Routine HEENT Exam Head: Present normocephalic Eye: Present EOMI and PERRL ENT: Present mucous membranes moist *Routine Neck Exam Neck: Present supple; Absent lymphadenopathy *Routine Respiratory Exam Respiratory: Present CTA bilaterally *Routine Cardiovascular Exam Cardiovascular: Present RRR *Routine Abdominal Exam Abdominal: Present soft and normoactive bowel sounds; Absent tenderness *Routine Rectal Exam Rectal:: deferred *Routine Genitalia Exam Genitalia:: deferred *Routine Extremities Exam Extremities: Absent cyanosis, clubbing or edema *Routine Skin Exam Skin: Present warm; Absent rash *Routine Neurological Exam Neurological: Present hemineglect (Right-sided, chronic) Detailed Psychiatric Exam Mood and affect: Present flat Thought process: Present impoverished and loose association Assessment and Plan *Assessment and plan (1) Acute cystitis: Status: Acute Qualifiers: Hematuria presence: without hematuria Qualified Code(s): N30.00 - Acute cystitis without hematuria Category: Medical Code(s): N30.00 - Acute cystitis without hematuria (2) Housing instability: Status: Acute Category: Social Hx Code(s): Z59.819 - Housing instability, housed unspecified (3) Hypokalemia: Status: Acute Category: Medical Code(s): E87.6 - Hypokalemia (4) Recent cerebrovascular accident: Status: Acute Category: Medical Code(s): Z86.73 - Personal history of transient ischemic attack (TIA), and cerebral infarction without residual deficits (5) HTN (hypertension): Status: Acute Qualifiers: Hypertension type: unspecified Qualified Code(s): I10 - Essential (primary) hypertension Category: Medical Code(s): I10 - Essential (primary) hypertension (6) Diabetes: Status: Acute Qualifiers: Diabetes mellitus complication status: with other specified complication Diabetes mellitus exterminator termite insulin use: without exterminator termite use Diabetes mellitus type: type 2 Qualified Code(s): E11.69 - Type 2 diabetes mellitus with other specified complication Category: Medical Code(s): E11.9 - Type 2 diabetes mellitus without complications Plan #Acute cystitis Positive nitrite, pyuria bacteria and leuk esterase Continue Rocephin, follow-up urine culture Denies any symptoms of smells heavily of malodorous urine #Housing instability History of stroke with right-sided deficits. Reportedly, patient was living with friend in [place]. Family was notified of concern for her wellbeing so picked her up and brought her to the emergency department. Family states that they will not be able to accommodate her going back home with them. Multiple attempts to speak with family were attempted after being dropped off to the ER but unsuccessful. Patient is awake alert and oriented but I do feel that patient is childlike and mentality. Able to follow simple commands and answer simple questions but does not have great critical thinking. Case management involved for possible postacute care placement #Hypokalemia Replace per protocol #Hypertension #DM2 #Prior CVA Continue home medications including Plavix, atorvastatin, aspirin Hold metformin, continue sliding scale and Rounded on patient after nurse practitioner. Personally examined and interviewed patient. Agree with exam findings and care plan as documented.
[2024-09-12 23:18] LABS: Troponin I < 0.01 ng/ml (0.00-0.034)
[2024-09-13 02:27] LABS: Troponin I < 0.01 ng/ml (0.00-0.034)
--- NOTE | 2024-09-13 03:39 | PC.NURSE ---
Ms Matilda Charles was newly admitted last night on behalf of the following documented diagnoses: hypokalemia and UTI. She has a history of a stroke, aphasia, intellectual delay, and right-sided weakness with abnormal flexion. Patient was able to answer close-ended questions with yes and no, and she is also able to communicate with some short phrases. Patient was able to state her birthday. Since her arrival to the floor, patient was observed to have eyes closed, respirations even and unlabored on room air, and no apparent distress. She has been self-turning in bed. Patient requires x1 assistance with ambulation and tolerates it well. Patient received a shower this shift. Upon auscultation of her lungs, inspiratory wheezing could be heard. A regular heart rhythm and hypoactive bowel sounds could also be heard. Palpation of her abdomen was soft and non-tender. SCDs in place thus far. Vital signs have been stable this shift. ACHS glucose fingersticks performed. Insulin coverage administered as appropriately per OCT. Patient has not had any complaints this shift. At this time, the patient is resting in bed. No acute changes noted thus far. Call light within reach. Contact precautions in place per bedbug report.
[2024-09-13 04:00] VITALS: BP 101/68; PULSE 78; RESP 16; TEMP 36.5; O2SAT 98; BMI 34.2
[2024-09-13 05:38] LABS: POC Glucose,Bedside 109 (70-110)
[2024-09-13 07:06] LABS: Basophils % 0.2 % (0.1-2.0); Eosinophils # 0.2 K/mm3 (0.0-0.4); Eosinophils % 4.3 % (0.1-12.0); Hematocrit 38.9 % (37.0-47.0); Lymphocytes # 1.7 K/mm3 (0.7-4.5); Lymphocytes % 31.5 % (10-50); Mean Corpuscular HGB Conc 32.6 g/dL (31.8-35.4); Mean Corpuscular Hemoglobin 29.9 pg (27.0-31.2); Mean Corpuscular Volume 91.5 fl (81-99); Monocytes # 0.5 K/mm3 (0.1-1.0); Neutrophils # 2.9 K/mm3 (1.8-7.8); Neutrophils % 53.8 % (37.0-80.0); Platelet Count 199 K/mm3 (142-424); Red Blood Count 4.25 M/mm3 (4.20-5.40); Red Cell Distribution Width 14.2 % (11.5-17.5); White Blood Count 5.3 K/mm3 (4.8-10.8)
--- NOTE | 2024-09-13 07:21 | HMH.PHAINT1 ---
Pharmacy Intervention Comments: VERIFIED WITH OUTPATIENT PHARMACY AND CONFIRMED WITH PATIENT.
[2024-09-13 07:35] LABS: Chloride 108 mmol/L (98-107); Sodium 136 mmol/L (136-145)
[2024-09-13 07:38] LABS: Blood Urea Nitrogen 19 mg/dl (7-17); Creatinine Clearance Estimated 133 mL/min (50-200); Estimated Glomerular Filt Rate 105 ml/min (>60); GFR (African American) 127 ML/MIN (>60)
[2024-09-13 07:39] LABS: Calcium 8.6 mg/dl (8.4-10.2); Carbon Dioxide 24 mmol/L (22.0-30.0); Glucose 92 mg/dl (74-100)
[2024-09-13 07:56] LABS: Hemoglobin 12.7 g/dL (12.2-16.2)
[2024-09-13 08:00] VITALS: BP 111/77; PULSE 85; RESP 18; TEMP 36.7; O2SAT 95
[2024-09-13] MEDS: CLOPIDOGREL 75MG TAB 75 MG PO (08:54)
[2024-09-13] MEDS: humaLOG 100 UNITS/ML 10ML VIAL (SSI) SUBCUT (09:05)
[2024-09-13 09:15] LABS: POC Glucose,Bedside 160 (70-110)
--- NOTE | 2024-09-13 10:02 | PC.NURSE ---
personal jail in room to bin booker MD @ bedside with care management
--- NOTE | 2024-09-13 11:29 | P.DS_ITS ---
General Admission date:: 09/12/24 Discharge date: 09/13/24 HPI HPI HPI: This is a 54-year-old female with a past medical history of prior CVA with right-sided weakness, housing instability who presents to the emergency department today for further evaluation of generalized weakness and homelessness. Patient reportedly was staying with a friend and the friend became concerned about her wellbeing so called the family to bring her to the emergency department. Upon arrival to the emergency department patient states that she feels like she is at her normal baseline. During initial exam, family was unable to be contacted for further collateral or discharge. They were finally able to contact family and family states that they will not be taking her into their home and are unable to do so but do not elaborate. Patient denies any symptoms but does smell strongly of urine. Urinalysis positive for nitrates, pyuria and bacteria. Labs otherwise stable. Given her housing instability and acute cystitis, she will be admitted to the hospitalist service. Case management has been consulted and assisting with post acute care dispo. Exam Data for Last 24 hours Vital signs and Labs for Last 24 Hours: Temp Pulse Resp BP Pulse Ox O2 Del Method 98.1 F 85 18 111/77 95 Room Air 09/13/24 08:00 09/13/24 08:00 09/13/24 08:00 09/13/24 08:00 09/13/24 08:00 09/13/24 09:00 Laboratory Results - last 24 hr 09/12/24 14:00: Urine Color Yellow, Urine Appearance Sl cloudy, Urine pH 6.0, Ur Specific [place] 1.025, Urine Protein Negative, Urine Glucose (UA) Negative, Urine Ketones Negative, Urine Blood Negative, Urine Nitrate Positive A, Urine Bilirubin Negative, Urine Urobilinogen 0.2, Ur Leukocyte Esterase 1+ A, Urine RBC Occasional, Urine WBC 20-50, Ur Squamous Epith Cells 3-5, Urine Bacteria 4+ 09/12/24 14:20: WBC 5.3, RBC 4.79, Hgb 14.5, Hct 44.0, MCV 91.9, MCH 30.3, MCHC 33.0, RDW 14.0, Plt Count 204, MPV 11.0 H, Neut % (Auto) 69.7, Lymph % (Auto) 20.5, [place] % (Auto) 6.8, Eos % (Auto) 2.6, Baso % (Auto) 0.2, Neut # (Auto) 3.7, Lymph # (Auto) 1.1, [place] # (Auto) 0.4, Eos # (Auto) 0.1, Baso # (Auto) 0.0, PT 10.2, INR 0.90, APTT 23.4, Sodium 137, Potassium 3.2 L, Chloride 103, Carbon Dioxide 28, Anion Gap 9.2, BUN 16, Creatinine 0.70, Estimated GFR 88, Est GFR ( Amer) 106, Glucose 117 H, Hemoglobin A1c 5.7, Calcium 9.9, Total Bilirubin 0.4, AST 38 H, ALT 32, Alkaline Phosphatase 117, Troponin I < 0.01, NT-Pro-B Natriuret Pep < 20.0, Total Protein 7.5, Albumin 4.3, Globulin 3.2, Albumin/Globulin Ratio 1.3, Triglycerides 84, Cholesterol 109 L, LDL Cholesterol Direct 49.22 L, VLDL Cholesterol 17, HDL Cholesterol 38 L, Cholesterol/HDL Ratio 2.9, TSH 1.33, Thyroxine (T4) 9.8, HCV Ab LIVAN w/Rflx PCR Qn Negative, HIV Ag/Ab Combo Qual Negative 09/12/24 22:03: POC Glucose 165 H 09/12/24 22:37: Troponin I < 0.01 09/13/24 01:50: Troponin I < 0.01 09/13/24 05:26: POC Glucose 109 09/13/24 06:27: WBC 5.3, RBC 4.25, Hgb 12.7 D, Hct 38.9, MCV 91.5, MCH 29.9, MCHC 32.6, RDW 14.2, Plt Count 199, MPV 11.0 H, Neut % (Auto) 53.8, Lymph % (Auto) 31.5, [place] % (Auto) 10.0 H, Eos % (Auto) 4.3, Baso % (Auto) 0.2, Neut # (Auto) 2.9, Lymph # (Auto) 1.7, [place] # (Auto) 0.5, Eos # (Auto) 0.2, Baso # (Auto) 0.0, Sodium 136, Potassium 4.0 D, Chloride 108 H, Carbon Dioxide 24, Anion Gap 8.0, BUN 19 H, Creatinine 0.60, Estimated Creat Clear 133, Estimated GFR 105, Est GFR ( Amer) 127, Glucose 92 D, Calcium 8.6 09/13/24 08:58: POC Glucose 160 H I & O for Last 24 hours: Intake & Output 09/10/24 09/11/24 09/12/24 09/13/24 23:59 23:59 23:59 23:59 Intake Total 756 / 756 Output Total 0 / 0 0 / 0 Balance 0 / 576 756 / 756 Weight 76.521 kg 76.975 kg Microbiology Reports for the Last 24 Hours: Microbiology 09/12/24 14:00 Urine,Clean Catch Urine Culture - Preliminary Results Data Completed and Pending Labs on day of discharge: Labs from last 24 hours 09/13/24 09/13/24 09/13/24 08:58 06:27 05:26 WBC 5.3 RBC 4.25 Hgb 12.7 D Hct 38.9 MCV 91.5 MCH 29.9 MCHC 32.6 RDW 14.2 Plt Count 199 MPV 11.0 H Neut % (Auto) 53.8 Lymph % (Auto) 31.5 [place] % (Auto) 10.0 H Eos % (Auto) 4.3 Baso % (Auto) 0.2 Neut # (Auto) 2.9 Lymph # (Auto) 1.7 [place] # (Auto) 0.5 Eos # (Auto) 0.2 Baso # (Auto) 0.0 PT INR APTT Sodium 136 Potassium 4.0 D Chloride 108 H Carbon Dioxide 24 Anion Gap 8.0 BUN 19 H Creatinine 0.60 Estimated Creat Clear 133 Estimated GFR 105 Est GFR ( Amer) 127 Glucose 92 D POC Glucose 160 H 109 Hemoglobin A1c Calcium 8.6 Total Bilirubin AST ALT Alkaline Phosphatase Troponin I NT-Pro-B Natriuret Pep Total Protein Albumin Globulin Albumin/Globulin Ratio Triglycerides Cholesterol LDL Cholesterol Direct VLDL Cholesterol HDL Cholesterol Cholesterol/HDL Ratio TSH Thyroxine (T4) Urine Color Urine Appearance Urine pH Ur Specific [place] Urine Protein Urine Glucose (UA) Urine Ketones Urine Blood Urine Nitrate Urine Bilirubin Urine Urobilinogen Ur Leukocyte Esterase Urine RBC Urine WBC Ur Squamous Epith Cells Urine Bacteria HCV Ab LIVAN w/Rflx PCR Qn HIV Ag/Ab Combo Qual 09/13/24 09/12/24 09/12/24 01:50 22:37 22:03 WBC RBC Hgb Hct MCV MCH MCHC RDW Plt Count MPV Neut % (Auto) Lymph % (Auto) [place] % (Auto) Eos % (Auto) Baso % (Auto) Neut # (Auto) Lymph # (Auto) [place] # (Auto) Eos # (Auto) Baso # (Auto) PT INR APTT Sodium Potassium Chloride Carbon Dioxide Anion Gap BUN Creatinine Estimated Creat Clear Estimated GFR Est GFR ( Amer) Glucose POC Glucose 165 H Hemoglobin A1c Calcium Total Bilirubin AST ALT Alkaline Phosphatase Troponin I < 0.01 < 0.01 NT-Pro-B Natriuret Pep Total Protein Albumin Globulin Albumin/Globulin Ratio Triglycerides Cholesterol LDL Cholesterol Direct VLDL Cholesterol HDL Cholesterol Cholesterol/HDL Ratio TSH Thyroxine (T4) Urine Color Urine Appearance Urine pH Ur Specific [place] Urine Protein Urine Glucose (UA) Urine Ketones Urine Blood Urine Nitrate Urine Bilirubin Urine Urobilinogen Ur Leukocyte Esterase Urine RBC Urine WBC Ur Squamous Epith Cells Urine Bacteria HCV Ab LIVAN w/Rflx PCR Qn HIV Ag/Ab Combo Qual 09/12/24 09/12/24 14:20 14:00 WBC 5.3 RBC 4.79 Hgb 14.5 Hct 44.0 MCV 91.9 MCH 30.3 MCHC 33.0 RDW 14.0 Plt Count 204 MPV 11.0 H Neut % (Auto) 69.7 Lymph % (Auto) 20.5 [place] % (Auto) 6.8 Eos % (Auto) 2.6 Baso % (Auto) 0.2 Neut # (Auto) 3.7 Lymph # (Auto) 1.1 [place] # (Auto) 0.4 Eos # (Auto) 0.1 Baso # (Auto) 0.0 PT 10.2 INR 0.90 APTT 23.4 Sodium 137 Potassium 3.2 L Chloride 103 Carbon Dioxide 28 Anion Gap 9.2 BUN 16 Creatinine 0.70 Estimated Creat Clear Estimated GFR 88 Est GFR ( Amer) 106 Glucose 117 H POC Glucose Hemoglobin A1c 5.7 Calcium 9.9 Total Bilirubin 0.4 AST 38 H ALT 32 Alkaline Phosphatase 117 Troponin I < 0.01 NT-Pro-B Natriuret Pep < 20.0 Total Protein 7.5 Albumin 4.3 Globulin 3.2 Albumin/Globulin Ratio 1.3 Triglycerides 84 Cholesterol 109 L LDL Cholesterol Direct 49.22 L VLDL Cholesterol 17 HDL Cholesterol 38 L Cholesterol/HDL Ratio 2.9 TSH 1.33 Thyroxine (T4) 9.8 Urine Color Yellow Urine Appearance Sl cloudy Urine pH 6.0 Ur Specific [place] 1.025 Urine Protein Negative Urine Glucose (UA) Negative Urine Ketones Negative Urine Blood Negative Urine Nitrate Positive A Urine Bilirubin Negative Urine Urobilinogen 0.2 Ur Leukocyte Esterase 1+ A Urine RBC Occasional Urine WBC 20-50 Ur Squamous Epith Cells 3-5 Urine Bacteria 4+ HCV Ab LIVAN w/Rflx PCR Qn Negative HIV Ag/Ab Combo Qual Negative Preliminary micro results at discharge 09/12/24 14:00 Urine Culture - Preliminary Urine,Clean Catch DS: Diagnosis Discharge Diagnosis (1) Acute cystitis: Status: Acute Code(s): N30.00 - Acute cystitis without hematuria Qualifiers: Hematuria presence: without hematuria Qualified Code(s): N30.00 - Acute cystitis without hematuria (2) Housing instability: Status: Acute Code(s): Z59.819 - Housing instability, housed unspecified (3) Hypokalemia: Status: Acute Code(s): E87.6 - Hypokalemia (4) Recent cerebrovascular accident: Status: Acute Code(s): Z86.73 - Personal history of transient ischemic attack (TIA), and cerebral infarction without residual deficits (5) HTN (hypertension): Status: Acute Code(s): I10 - Essential (primary) hypertension Qualifiers: Hypertension type: unspecified Qualified Code(s): I10 - Essential (primary) hypertension (6) Diabetes: Status: Acute Code(s): E11.9 - Type 2 diabetes mellitus without complications Qualifiers: Diabetes mellitus type: type 2 Diabetes mellitus debt counselor insulin use: without custodial use Diabetes mellitus complication status: with other specified complication Qualified Code(s): E11.69 - Type 2 diabetes mellitus with other specified complication Meds Home Medications and Allergies Home Medications ?Medication ?Instructions ?Recorded ?Confirmed ?Type aspirin 81 mg tablet,delayed 81 mg PO DAILY #90 tabs 09/13/24 Rx release atorvastatin 40 mg tablet 40 mg PO HS 3 months #90 tabs 09/13/24 Rx cefdinir 300 mg capsule 300 mg PO Q12H 5 days #10 caps 09/13/24 Rx cetirizine 10 mg tablet 10 mg PO DAILY #90 tabs 09/13/24 Rx clopidogrel 75 mg tablet 75 mg PO DAILY #90 tabs 09/13/24 Rx ergocalciferol (vitamin D2) 1,250 50,000 unit PO WEEKLY #4 caps 09/13/24 Rx mcg (50,000 unit) capsule (Vitamin D2) escitalopram oxalate 10 mg tablet 10 mg PO DAILY #30 tabs 09/13/24 Rx ezetimibe 10 mg tablet 10 mg PO DAILY #90 tabs 09/13/24 Rx fluticasone propionate 50 2 spray intranasal DAILY #16 grams 09/13/24 Rx mcg/actuation nasal spray,suspension losartan 100 1 tab PO DAILY #90 tabs 09/13/24 Rx mg-hydrochlorothiazide 25 mg tablet metformin 500 mg tablet 500 mg PO DAILY #90 tabs 09/13/24 Rx New Prescriptions to Start Prescriptions: aspirin Mil,Fermin atorvastatin Mil,Fermin cefdinir Mil,Fermin cetirizine Mil,Fermin clopidogrel Fermin Jaeger ergocalciferol (vitamin D2) [Vitamin D2] Mil,Fermin escitalopram oxalate Mil,Fermin ezetimibe Mil,Fermin fluticasone propionate Mil,Fermin losartan-hydrochlorothiazide Mil,Fermin metformin Fermin Jaeger Allergies Allergy/AdvReac Type Severity Reaction Status Date / Time ibuprofen Allergy Verified 07/06/24 15:00 Discharge Plan Disposition Patient Disposition: Home, Self-Care Condition: Fair Follow up Plan Follow up with: Emily Aguilar APRN [Primary Care Provider] - Enter time for follow up Prescriptions/Medication Reconciliation: New cefdinir 300 mg capsule 300 mg PO Q12H 5 Days Qty: 10 0RF Continued atorvastatin 40 mg tablet 40 mg PO HS 90 Days Qty: 90 1RF metformin 500 mg tablet 500 mg PO DAILY Qty: 90 1RF cetirizine 10 mg tablet 10 mg PO DAILY Qty: 90 1RF clopidogrel 75 mg tablet 75 mg PO DAILY Qty: 90 1RF aspirin 81 mg tablet,delayed release (DR/EC) 81 mg PO DAILY Qty: 90 1RF losartan-hydrochlorothiazide 100-25 mg tablet 1 tab PO DAILY Qty: 90 1RF ergocalciferol (vitamin D2) [Vitamin D2] 1,250 mcg (50,000 unit) capsule 50,000 unit PO WEEKLY Qty: 4 0RF fluticasone propionate 50 mcg/actuation spray,suspension 2 spray INTRANASAL DAILY Qty: 16 3RF escitalopram oxalate 10 mg tablet 10 mg PO DAILY Qty: 30 0RF ezetimibe 10 mg tablet 10 mg PO DAILY Qty: 90 1RF Discontinued (DME) OneTouch Ultra Test Strip MISCELLANEOUS Patient Comments: Use as instructed Problem Reconciliation Problems Reviewed?: Yes Patient Discharge Instructions ACTIVITY: Continue current activity DIET: continue same diet Patient Instructions: DI for Urinary Tract Infection (UTI), DI for Hypokalemia Print Language: Sinhala Providers Primary Care Provider: Emily Aguilar Admit Provider: Fermin Jaeger Attending Provider: Fermin Jaeger
[2024-09-13 12:00] VITALS: BP 106/72; PULSE 86; RESP 20; TEMP 37.1; O2SAT 95
[2024-09-13 12:16] LABS: POC Glucose,Bedside 113 (70-110)
[2024-09-13 16:00] VITALS: BP 105/67; PULSE 87; RESP 20; TEMP 36.8; O2SAT 95
--- NOTE | 2024-09-13 17:31 | EXP.ACUTE.PN ---
Subjective *Date: 09/13/24 *Time: 17:31 Interval history: Patient ambulatory today, residual deficits right side. Able to get up and walk on her own. Antalgic gait due to rigid right lower extremity. Evaluated by Wellington dover today. Tolerating p.o. intake. Therapy evaluated, stable to discharge to personal-snf. Patient denies any chest pain, shortness of breath, nausea or vomiting. Denies any dysuria Medical Exam Vital signs and Labs for Last 24 Hours: Vital Signs Temp Pulse Pulse Resp BP BP Pulse Ox 09/13/24 17:00 09/13/24 16:00 98.3 F 87 20 105/67 L 95 09/13/24 15:00 09/13/24 13:00 09/13/24 12:00 98.7 F 86 20 106/72 L 95 09/13/24 11:00 09/13/24 09:00 09/13/24 08:00 98.1 F 85 18 111/77 95 09/13/24 08:00 09/13/24 06:30 09/13/24 05:00 09/13/24 04:00 97.7 F 78 16 101/68 L 98 09/13/24 03:00 09/13/24 01:00 09/12/24 23:00 09/12/24 22:41 98.7 F 92 H 16 138/86 97 09/12/24 21:44 97.9 F 87 16 134/72 09/12/24 21:37 92 H 16 97 09/12/24 21:30 97.9 F 87 138/86 97 09/12/24 21:00 132/101 H 09/12/24 20:31 95 H 132/108 H 97 09/12/24 19:30 93 H 127/88 97 09/12/24 19:15 94 H 147/90 H 95 09/12/24 18:21 90 155/118 H 97 09/12/24 18:00 85 158/80 H 98 09/12/24 17:35 98.0 F 77 18 127/75 O2 Del Method 09/13/24 17:00 Room Air 09/13/24 16:00 Room Air 09/13/24 15:00 Room Air 09/13/24 13:00 Room Air 09/13/24 12:00 Room Air 09/13/24 11:00 Room Air 09/13/24 09:00 Room Air 09/13/24 08:00 Room Air 09/13/24 08:00 Room Air 09/13/24 06:30 Room Air 09/13/24 05:00 Room Air 09/13/24 04:00 Room Air 09/13/24 03:00 Room Air 09/13/24 01:00 Room Air 09/12/24 23:00 Room Air 09/12/24 22:41 Room Air 09/12/24 21:44 Room Air 09/12/24 21:37 Room Air 09/12/24 21:30 09/12/24 21:00 09/12/24 20:31 09/12/24 19:30 09/12/24 19:15 09/12/24 18:21 Room Air 09/12/24 18:00 Room Air 09/12/24 17:35 Room Air Intake and Output 09/13/24 09/13/24 09/13/24 07:59 15:59 23:59 Intake Total 576 / 1076 500 / 1076 Output Total 0 / 0 0 / 0 0 / 0 Balance 576 / 1076 500 / 1076 0 / 1076 Intake: Intake, Oral Amount 576 / 1076 500 / 1076 Output: Output, Urine Amount 0 / 0 0 / 0 0 / 0 Other: Number of Unmeasured Voids 1 2 2 Weight 76.975 kg Patient Weight 09/13/24 23:59 Weight 76.975 kg Laboratory Results - last 24 hr 09/12/24 22:03: POC Glucose 165 H 09/12/24 22:37: Troponin I < 0.01 09/13/24 01:50: Troponin I < 0.01 09/13/24 05:26: POC Glucose 109 09/13/24 06:27: WBC 5.3, RBC 4.25, Hgb 12.7 D, Hct 38.9, MCV 91.5, MCH 29.9, MCHC 32.6, RDW 14.2, Plt Count 199, MPV 11.0 H, Neut % (Auto) 53.8, Lymph % (Auto) 31.5, [place] % (Auto) 10.0 H, Eos % (Auto) 4.3, Baso % (Auto) 0.2, Neut # (Auto) 2.9, Lymph # (Auto) 1.7, [place] # (Auto) 0.5, Eos # (Auto) 0.2, Baso # (Auto) 0.0, Sodium 136, Potassium 4.0 D, Chloride 108 H, Carbon Dioxide 24, Anion Gap 8.0, BUN 19 H, Creatinine 0.60, Estimated Creat Clear 133, Estimated GFR 105, Est GFR ( Amer) 127, Glucose 92 D, Calcium 8.6 09/13/24 08:58: POC Glucose 160 H 09/13/24 12:10: POC Glucose 113 H I & O for Labs for Last 24 Hours: Intake & Output 09/10/24 09/11/24 09/12/24 09/13/24 23:59 23:59 23:59 23:59 Intake Total 1076 / 1076 Output Total 0 / 0 0 / 0 Balance 0 / 576 1076 / 1076 Weight 76.521 kg 76.975 kg Microbiology Reports for the Last 24 Hours: Microbiology 09/12/24 14:00 Urine,Clean Catch Urine Culture - Preliminary Constitutional: Present no acute distress, obese, chronically ill appearing and cooperative Head: Present atraumatic and normocephalic ENT: Present normal exam Respiratory: Present normal respiratory effort; Absent rhonchi, stridor, wheezes or crackles Cardiac: Present Reg Rate and Rhythm GI: Present soft and normal bowel sounds; Absent distention or tenderness Comment:: Contracture of right upper extremity, limited range of motion. Unable to use fingers. Can raise arm and shoulder. Right leg with strength in thigh, unable to wiggle toes. Strength 5/5 in left upper and lower extremity. Right foot in postop shoe Skin: Present intact; Absent erythema Neuro: Present alert, awake and moves all extremities Comment:: Unable to evaluate orientation due to neurologic deficit; right-sided deficits, left side with normal strength Assessment and Plan *Assessment and plan (1) Acute cystitis: Status: Acute Qualifiers: Hematuria presence: without hematuria Qualified Code(s): N30.00 - Acute cystitis without hematuria Category: Medical Code(s): N30.00 - Acute cystitis without hematuria (2) Housing instability: Status: Acute Category: Social Hx Code(s): Z59.819 - Housing instability, housed unspecified (3) Hypokalemia: Status: Acute Category: Medical Code(s): E87.6 - Hypokalemia (4) Recent cerebrovascular accident: Status: Acute Category: Medical Code(s): Z86.73 - Personal history of transient ischemic attack (TIA), and cerebral infarction without residual deficits (5) HTN (hypertension): Status: Acute Qualifiers: Hypertension type: unspecified Qualified Code(s): I10 - Essential (primary) hypertension Category: Medical Code(s): I10 - Essential (primary) hypertension (6) Diabetes: Status: Acute Qualifiers: Diabetes mellitus type: type 2 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 Admitted for UTI and housing instability. Evaluated by Wellington dover today, patient to be accepted to their care tomorrow. Stable. Will monitor overnight. 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 Denies any symptoms of smells heavily of malodorous urine #Housing instability -Patient does not have a safe dispo with family. Case management assisting with care. Evaluated by Wellington dover. Working with patient's brother to get patient admitted to personal care facility. Will discharge tomorrow to personal care facility. #Hypokalemia Potassium 4.0, kidney function normal with BUN 19, creatinine 0.6. White count normal at 5.3, hemoglobin 12.7. Lab holiday in the morning #Hypertension #DM2 #Prior CVA Continue Plavix 75 mg daily, continue sliding scale insulin with fingersticks ACHS, continue Lipitor 10 mg nightly. Blood pressure stable on no medication at this time. Full code Diabetic diet
[2024-09-13 20:00] VITALS: BP 101/65; PULSE 83; RESP 16; TEMP 36.8; O2SAT 97
[2024-09-13] MEDS: ACETAMINOPHEN 325MG TAB 650 MG PO (20:30)
[2024-09-13] MEDS: CEFTRIAXONE SODIUM 2 GM in 0.9 % SODIUM CHLORIDE 100 ML IV (20:31)
[2024-09-13] MEDS: ATORVASTATIN 40MG TABLET 40 MG PO (20:31)
[2024-09-13 23:14] LABS: POC Glucose,Bedside 118 (70-110)
--- NOTE | 2024-09-13 23:23 | PC.NURSE ---
A new, 22G IV was inserted into the left hand by me at this time.
[2024-09-14] VITALS: BP 99/58; PULSE 86; RESP 18; TEMP 36.8; O2SAT 96
[2024-09-14 03:44] VITALS: BP 93/54; PULSE 88; RESP 18; TEMP 36.6; O2SAT 97; BMI 35.6
--- NOTE | 2024-09-14 04:36 | PC.NURSE ---
Patient is alert and oriented. She is able to communicate in short phrases and answers yes and no to close-ended questions. Patient was observed to have eyes closed, respirations even and unlabored on room air, and no apparent distress for the majority of the night. She has been self-turning in bed. Patient tolerates ambulation well with standby assistance/x1 assistance. Patient has not had any complaints this shift. Right-sided weakness and abnormal flexion/rigidity of the upper extremity noted. Scheduled medications were administered as appropriately per MAR. ACHS glucose fingersticks performed. Auscultation of her heart and bowels were within normal findings; lung sounds clear this shift but were slightly diminished. SCDs refused this shift. She has been tolerating a diabetic diet. Vital signs have been stable this shift with soft blood pressures. At this time, the patient is resting in bed. No acute changes noted thus far. Call light within reach. Contact precautions ongoing per bedbug.
[2024-09-14 05:57] LABS: POC Glucose,Bedside 119 (70-110)
[2024-09-14 08:00] VITALS: BP 109/65; PULSE 73; RESP 18; TEMP 36.5; O2SAT 95
[2024-09-14] MEDS: CLOPIDOGREL 75MG TAB 75 MG PO (09:04)
[2024-09-14] MEDS: humaLOG 100 UNITS/ML 10ML VIAL (SSI) SUBCUT (10:20)
--- NOTE | 2024-09-14 12:38 | EXP.DC.SUM ---
General Admission date:: 09/12/24 Hospital Course Hospital Course Hospital Course: 54-year-old female with chronic residual right-sided deficits from stroke. Admitted for UTI and housing instability. #Acute cystitis - Discharged with cefdinir for 5 days. #Housing instability - Patient does not have a safe dispo with family at this time. Case management assisted with care. - [facility] Jung personal halfway graciously accepted patient. #Hypokalemia - Repleted. #Hypertension #DM2 #Prior CVA - Continue Plavix 75 mg daily, continue Lipitor 10 mg nightly, continue metformin. - Held losartan, HCTZ as BP stable without them. Total time spent on discharge: 32 minutes on chart review, counseling, documentation, and direct care with patient. Exam Data for Last 24 hours Vital signs and Labs for Last 24 Hours: Temp Pulse Resp BP Pulse Ox O2 Del Method 97.7 F 73 18 109/65 L 95 Room Air 09/14/24 08:00 09/14/24 08:00 09/14/24 08:00 09/14/24 08:00 09/14/24 08:00 09/14/24 09:48 Laboratory Results - last 24 hr 09/13/24 20:33: POC Glucose 118 H 09/14/24 05:49: POC Glucose 119 H I & O for Last 24 hours: Intake & Output 09/11/24 09/12/24 09/13/24 09/14/24 23:59 23:59 23:59 23:59 Intake Total 1556 / 1806 368 / 368 Output Total 0 / 0 0 / 0 0 / 0 Balance 0 / 576 1556 / 1806 368 / 368 Weight 76.521 kg 76.975 kg 80.087 kg Microbiology Reports for the Last 24 Hours: Microbiology 09/12/24 14:00 Urine,Clean Catch Urine Culture - Preliminary Constitutional Constitutional: no acute distress and obese *Routine HEENT Exam Head: Present normocephalic Eye: Present EOMI and PERRL ENT: Present mucous membranes moist *Routine Neck Exam Neck: Present supple; Absent lymphadenopathy *Routine Respiratory Exam Respiratory: Present CTA bilaterally *Routine Cardiovascular Exam Cardiovascular: Present RRR *Routine Abdominal Exam Abdominal: Present soft and normoactive bowel sounds; Absent tenderness *Routine Extremities Exam Extremities: Absent cyanosis, clubbing or edema *Routine Skin Exam Skin: Present warm; Absent rash *Routine Neurological Exam Neurological: Present alert and oriented X3 Results Data Completed and Pending Labs on day of discharge: Labs from last 24 hours 09/14/24 09/13/24 05:49 20:33 POC Glucose 119 H 118 H Preliminary micro results at discharge 09/12/24 14:00 Urine Culture - Preliminary Urine,Clean Catch DS: Diagnosis Discharge Diagnosis (1) Acute cystitis: Status: Acute Code(s): N30.00 - Acute cystitis without hematuria Qualifiers: Hematuria presence: without hematuria Qualified Code(s): N30.00 - Acute cystitis without hematuria (2) Housing instability: Status: Acute Code(s): Z59.819 - Housing instability, housed unspecified (3) Hypokalemia: Status: Acute Code(s): E87.6 - Hypokalemia (4) Recent cerebrovascular accident: Status: Acute Code(s): Z86.73 - Personal history of transient ischemic attack (TIA), and cerebral infarction without residual deficits (5) HTN (hypertension): Status: Acute Code(s): I10 - Essential (primary) hypertension Qualifiers: Hypertension type: unspecified Qualified Code(s): I10 - Essential (primary) hypertension (6) Diabetes: Status: Acute Code(s): E11.9 - Type 2 diabetes mellitus without complications Qualifiers: Diabetes mellitus complication status: with other specified complication 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: without dedicated intermodal truck driver use Diabetes mellitus type: type 2 Qualified Code(s): E11.69 - Type 2 diabetes mellitus with other specified complication Meds Home Medications and Allergies Home Medications ?Medication ?Instructions ?Recorded ?Confirmed ?Type aspirin 81 mg tablet,delayed 81 mg PO DAILY #90 tabs 09/13/24 Rx release atorvastatin 40 mg tablet 40 mg PO HS 3 months #90 tabs 09/13/24 Rx cefdinir 300 mg capsule 300 mg PO Q12H 5 days #10 caps 09/13/24 Rx cetirizine 10 mg tablet 10 mg PO DAILY #90 tabs 09/13/24 Rx clopidogrel 75 mg tablet 75 mg PO DAILY #90 tabs 09/13/24 Rx ergocalciferol (vitamin D2) 1,250 50,000 unit PO WEEKLY #4 caps 09/13/24 Rx mcg (50,000 unit) capsule (Vitamin D2) escitalopram oxalate 10 mg tablet 10 mg PO DAILY #30 tabs 09/13/24 Rx fluticasone propionate 50 2 spray intranasal DAILY #16 grams 09/13/24 Rx mcg/actuation nasal spray,suspension metformin 500 mg tablet 500 mg PO DAILY #90 tabs 09/13/24 Rx New Prescriptions to Start Prescriptions: aspirin Fermin Jaeger atorvastatin Fermin Jaeger cefdinir Fermin Jaeger cetirizine Mil,Fermin clopidogrel Fermin Jaeger ergocalciferol (vitamin D2) [Vitamin D2] Fermin Jaeger escitalopram oxalate Mil,Fermin fluticasone propionate Mil,Fermin metformin Fermin Jaeger Allergies Allergy/AdvReac Type Severity Reaction Status Date / Time ibuprofen Allergy Verified 07/06/24 15:00 Discharge Plan Disposition Patient Disposition: Home, Self-Care Condition: Fair Follow up Plan Follow up with: Emily Aguilar APRN [Primary Care Provider] - Enter time for follow up Prescriptions/Medication Reconciliation: New cefdinir 300 mg capsule 300 mg PO Q12H 5 Days Qty: 10 0RF Continued atorvastatin 40 mg tablet 40 mg PO HS 90 Days Qty: 90 1RF metformin 500 mg tablet 500 mg PO DAILY Qty: 90 1RF cetirizine 10 mg tablet 10 mg PO DAILY Qty: 90 1RF clopidogrel 75 mg tablet 75 mg PO DAILY Qty: 90 1RF aspirin 81 mg tablet,delayed release (DR/EC) 81 mg PO DAILY Qty: 90 1RF ergocalciferol (vitamin D2) [Vitamin D2] 1,250 mcg (50,000 unit) capsule 50,000 unit PO WEEKLY Qty: 4 0RF fluticasone propionate 50 mcg/actuation spray,suspension 2 spray INTRANASAL DAILY Qty: 16 3RF escitalopram oxalate 10 mg tablet 10 mg PO DAILY Qty: 30 0RF Discontinued ezetimibe 10 mg tablet 10 mg PO DAILY Qty: 90 1RF losartan-hydrochlorothiazide 100-25 mg tablet 1 tab PO DAILY Qty: 90 1RF (DME) OneTouch Ultra Test Strip MISCELLANEOUS Patient Comments: Use as instructed Problem Reconciliation Problems Reviewed?: Yes Patient Discharge Instructions ACTIVITY: Continue current activity DIET: continue same diet Patient Instructions: DI for Urinary Tract Infection (UTI), DI for Hypokalemia Print Language: Salvadorean Providers Primary Care Provider: Emily Aguilar Admit Provider: Fermin Jaeger Attending Provider: Fermin Jaeger
--- NOTE | 2024-09-15 10:11 | SW/DCPLANNER ---
Patient resides at [facility]. [facility]
== END 2024-09-14 14:10 | disposition home or self-care (01) ==
LOC: ER 21:22 → 2ND 21:47
PROVIDERS: Emergency Medicine; Nurse Practitioner Acute Care; Admitting Provider Internal Medicine Adolescent Medicine; Emergency Provider Emergency Medicine; PCP Family Medicine; Visit Provider Internal Medicine Adolescent Medicine
DX: N39.0 Urinary tract infection, site not specified (principal); R29.702 NIHSS score 2; I69.351 Hemiplegia and hemiparesis following cerebral infarction affecting right dominant side; F17.210 Nicotine dependence, cigarettes, uncomplicated; E11.9 Type 2 diabetes mellitus without complications; E87.6 Hypokalemia; Z79.82 Long term (current) use of aspirin; Z79.84 Long term (current) use of oral hypoglycemic drugs; Z59.01 Sheltered homelessness; Z79.02 Long term (current) use of antithrombotics/antiplatelets
CPT/HCPCS: 36415; 70450; 70496; 70498; 71045; 80048; 80053; 80061; 81001; 82962; 83036; 83880; 84436; 84443; 84484; 85025; 85610; 85730; 86803; 87086; 87088; 87186; 87389; 93005; 99285; G0378; J0696; Q9967

== ENCOUNTER 2025-03-11 21:36 | Observation (INO) | payer OTHER, SELFPAY ==
[2025-03-11 21:38] VITALS: BP 131/57; PULSE 94; RESP 16; TEMP 37.1; O2SAT 97; BMI 30.9
--- NOTE | 2025-03-11 21:55 | ED_ITS ---
Discharge Plan Disposition Patient Disposition: Admitted Condition: Good Clinical Impressions Clinical Impression: Cholecystitis, Duodenitis Discharge ED Provider: Lupe Rubio General Adult HPI <Lupe Rubio DO - Last Filed: 03/12/25 01:24> General Chief complaint: Abdominal Pain Stated complaint: Abdominal pain Time Seen by Provider: 03/11/25 21:52 Mode of Arrival: EMS Source of Information: Patient and EMS Description of Symptoms (Recalled from ER Triage Doc. by RN): pt reports right sided upper abdominal pain that began yesterday while eating dinner. pt reports a sharp pain 10/10 pain History of Present Illness HPI narrative: Patient is a 54-year-old female with a past medical history of cystitis as well as CVA with right sided deficits who presents to the emergency department with abdominal pain. Patient states that her pain is located in her right upper abdomen started yesterday resolved and returned today. Patient states that her pain is 10 out of 10, does not radiate. Patient denies any nausea or vomiting. Patient denies any diarrhea. Patient denies any fevers. Patient denies any chest pain or shortness of breath. Patient states that her pain is not worsened or alleviated by anything in particular. Patient reports still having her gallbladder. Patient does not drink any alcohol. Patient denies any other drug use. Patient denies any urinary symptoms at this time. Related Data Previous Rx's ?Medication ?Instructions ?Recorded aspirin 81 mg tablet,delayed 81 mg PO DAILY #90 tabs 0 09/13/24 release atorvastatin 40 mg tablet 40 mg PO HS 3 months #90 tab s 09/13/24 cefdinir 300 mg capsule 300 mg PO Q12H 5 days #10 ca ps 09/13/24 cetirizine 10 mg tablet 10 mg PO DAILY #90 tabs 08/31 12/23 clopidogrel 75 mg tablet 75 mg PO DAILY #90 tabs 08/31 12/23 ergocalciferol (vitamin D2) 1,250 50,000 unit PO WEEKL Y #4 caps 09/13/24 mcg (50,000 unit) capsule (Vitamin D2) escitalopram oxalate 10 mg tablet 10 mg PO DAILY #30 t abs 09/13/24 fluticasone propionate 50 2 spray intranasal DAILY #16 grams 09/13/24 mcg/actuation nasal spray,suspension metformin 500 mg tablet 500 mg PO DAILY #90 tabs Allergies Allergy/AdvReac Type Severity Reaction Status Date / Time ibuprofen Allergy Verified 07/06/24 15:00 [facility] <Lupe Rubio DO - Last Filed: 03/12/25 01:24> [facility] Disclaimer: The information contained in this section may have been updated after the patient was seen, as this information can be updated by other users. Medical History (Updated 03/12/25 @ 02:43 by Nayeli Flower MD) UTI (urinary tract infection) Social History Smoking Status: Never smoker alcohol intake: never current occupational status: disabled Travel in the last 8 weeks?: None Have you lived/traveled outside [place] in past 30 days?: No Contact w/someone who lives/traveled outside [place] past 30 days?: No Exposure to someone with infectious disease in past 14 days?: No Do you have a fever (greater than 100.4 F or 38 C)?: No Have you tested positive for COVID-19?: No Exposed to someone with COVID-19 in past 14 days?: No Do you have a sore throat?: No Do you have a cough?: No Do you have any weakness?: No Do you have any diarrhea?: No Are you experiencing any unusual bleeding?: No Do you have any muscle aches/pain?: No Do you have any abdominal pain?: Yes Are you experiencing loss of taste or smell?: No Other Medical History Have you received the Flu Vaccine for this season: No Have you received the Pneumonia Vaccine: No <Lupe Rubio DO - Last Filed: 03/12/25 01:24> ROS Obtained: Yes All systems reviewed & no additional complaints except as documented and Yes Systems reviewed as appropriate & no additional complaints except as documented Physical Exam <Lupe Rubio DO - Last Filed: 03/12/25 01:24> General General appearance: alert and in no apparent distress Head Head exam: atraumatic, normocephalic and normal inspection Eye Eye exam: Present normal appearance, PERRL and EOMI; Absent scleral icterus ENT ENT exam: Present normal exam and normal external ear exam Neck Neck exam: Present normal inspection and full ROM Chest Chest inspection: Present normal inspection and symmetric chest wall rise Respiratory Respiratory exam: Present normal lung sounds bilaterally; Absent respiratory distress or wheezes Cardiovascular Cardiovascular exam: Present regular rate, normal rhythm and normal heart sounds Abdominal Exam Abdominal exam: Present soft, distention and tenderness; Absent guarding or rebound Abdominal tenderness: Present RUQ; Absent RLQ, LUQ or LLQ Extremities Exam Extremities exam: Present normal inspection and full ROM Back Exam Back exam: Present normal inspection and full ROM Neurological Exam Neurological exam: Present alert, oriented X3 and other (Right sided deficits right upper extremity and right lower extremity consistent with patient's previous CVA) Psychiatric Psychiatric exam: Present normal affect and normal mood Skin Skin exam: Present warm and dry Medical Decision Making <Lupe Rubio, DO - Last Filed: 03/12/25 01:24> Medical Records Screening: Per USPSTF and CDC recommendations, given the prevalence of disease in our region, it is our hospital?s policy to screen for HIV and viral Hepatitis for all patients aged 18 and over and those with ongoing risk factors. [place] Inquiry Pt receiving controlled substance: No Vital Signs: 03/11/25 21:38 03/12/25 00:00 03/12/25 00:31 Temperature 98.8 F Temperature Source Oral Pulse Rate 92 H 80 Pulse Rate [Right] 94 H Respiratory Rate 16 Blood Pressure 127/88 111/72 Blood Pressure [Right Arm] 131/57 L Blood Pressure Mean [Right Arm] 81 02 Sat by Pulse Oximetry 97 98 95 Oxygen Delivery Method Room Air 03/12/25 01:00 03/12/25 01:24 03/12/25 01:30 Temperature Temperature Source Pulse Rate 76 105 H 94 H Pulse Rate [Right] Respiratory Rate Blood Pressure 117/67 136/98 H 137/80 Blood Pressure [Right Arm] Blood Pressure Mean [Right Arm] 02 Sat by Pulse Oximetry 94 L 96 98 Oxygen Delivery Method 03/12/25 02:01 Temperature Temperature Source Pulse Rate 93 H Pulse Rate [Right] Respiratory Rate Blood Pressure 126/69 Blood Pressure [Right Arm] Blood Pressure Mean [Right Arm] 02 Sat by Pulse Oximetry 96 Oxygen Delivery Method Lab Data Lab results reviewed: Yes I reviewed the patient's lab results. Lab Results 03/11/25 22:37: WBC 5.8, RBC 3.95 L, Hgb 12.6, Hct 38.1, MCV 96.5, MCH 31.9 H, MCHC 33.1, RDW 13.1, Plt Count 240, MPV 10.2, Neut % (Auto) 59.6, Lymph % (Auto) 28.3, [place] % (Auto) 9.6 H, Eos % (Auto) 2.1, Baso % (Auto) 0.2, Neut # (Auto) 3.4, Lymph # (Auto) 1.6, [place] # (Auto) 0.6, Eos # (Auto) 0.1, Baso # (Auto) 0.0, PT 10.6, INR 0.95, Sodium 140, Potassium 2.9 L*, Chloride 99, Carbon Dioxide 29, Anion Gap 14.9, BUN 16, Creatinine 0.70, Estimated Creat Clear 121, Estimated GFR 88, Est GFR ( Amer) 106, Glucose 117 H, Calcium 9.4, Total Bilirubin 0.3, AST 34, ALT 21, Alkaline Phosphatase 111, Total Protein 7.4, Albumin 4.3, Globulin 3.1, Albumin/Globulin Ratio 1.4, Lipase 127 03/11/25 22:37 03/11/25 22:37 Orders (Tests/Meds): ED MEDICATIONS Generic Name Dose Route Start Last Admin Trade Name Freq PRN Reason Stop Dose Admin Lactated Ringer's 1,000 mls @ 100 mls/hr 03/12/25 02:00 Lactated Ringer's 1000 Ml Bag IV 04/11/25 01:59 .Q10H DRE Morphine Sulfate 2 mg 03/12/25 01:57 Morphine 2mg/Ml Syringe IV 04/11/25 01:56 Q2HP PRN Severe Pain (7-10) Sodium Chloride 8 ml 03/12/25 01:57 Sodium Chloride 0.9% 10ml Vial IV 04/11/25 01:56 NEEDED PRN dilute pepcid Discontinued Medications Generic Name Dose Route Start Last Admin Trade Name Freq PRN Reason Stop Dose Admin Famotidine 20 mg 03/12/25 01:57 Famotidine 20mg/2ml Vial IV 03/12/25 01:58 ONCE ONE Potassium Chloride/Water 100 mls @ 100 mls/hr 03/11/25 23:30 03/12/25 01:41 Potassium Chloride 10meq/100ml Ivpb IV 03/12/25 02:29 100 mls/hr Q1H DRE Administration Sodium Chloride 1,000 mls @ 999 mls/hr 03/11/25 23:54 03/11/25 23:56 Sod Chlor 0.9% 1000ml Bag IV 03/12/25 00:54 999 mls/hr .Q1H1M ONE Administration Piperacillin Sod/Tazobactam 50 mls @ 100 mls/hr 03/12/25 01:29 03/12/25 02:00 Sod 3.375 gm/ Sodium Chloride IV 03/12/25 01:58 100 mls/hr ONCE ONE Administration Iopamidol 75 ml 03/11/25 23:25 03/11/25 23:26 Iopamidol-370 (76%);100ml Bottle IV 03/11/25 23:26 75 ml ONCE ONE Administration Morphine Sulfate 4 mg 03/11/25 22:19 03/11/25 22:29 Morphine 4mg/Ml Syringe IV 03/11/25 22:20 4 mg ONCE ONE Administration Ondansetron HCl 4 mg 03/11/25 22:19 03/11/25 22:28 Ondansetron 4mg/2ml Vial IV 03/11/25 22:20 4 mg ONCE ONE Administration Potassium Chloride 40 meq 03/12/25 00:57 03/12/25 01:42 Potassium Chloride 20meq Tab PO 03/12/25 00:58 40 meq ONCE ONE Administration Sodium Chloride 10 ml 03/11/25 23:25 03/11/25 23:26 Sodium Chloride 0.9% 10ml Syr (Rad Only) IV 03/11/25 23:26 10 ml ONCE ONE Administration ORDERS Category Date Time Status Type and Screen Stat BBK 03/11/25 22:[address] abdomen pelvis w con Stat Cat Scan 03/11/25 22:19 Completed Consult to General Surgery [CONS] Routine Cons 03/12/25 02:01 Ordered POCUS Point of Care (ER Only) Stat Exams 03/11/25 23:24 Completed CBC w/Auto Diff [Complete Blood Count Auto Diff] Stat Lab 03/11/25 22:37 Completed CMP [Comprehensive Metabolic Panel] Stat Lab 03/11/25 22:37 Completed Complete Blood Count Auto Diff AMLAB Lab 03/13/25 06:00 Ordered Comprehensive Metabolic Panel AMLAB Lab 03/13/25 06:00 Ordered Lipase Stat Lab 03/11/25 22:37 Completed Magnesium AMLAB Lab 03/13/25 06:00 Ordered PT INR [Prothrombin Time INR] Stat Lab 03/11/25 22:37 Completed Medical Decision Narrative: Patient is a 54-year-old female with a past medical history of cystitis as well as previous CVA who presented to the emergency department with right sided upper abdominal pain. On arrival, patient was hemodynamically stable with unremarkable vital signs. On exam, patient had right upper quadrant abdominal tenderness, exam was otherwise unremarkable. Differential includes but not limited to: Pancreatitis, cholelithiasis, cholecystitis, choledocholithiasis, dehydration, electrolyte abnormalities, amongst others. Patient's workup was reviewed and interpreted by myself, CBC showed no leukocytosis, hemoglobin stable. INR unremarkable. Chemistry notable for potassium of 2.9 otherwise unremarkable with normal LFTs. Patient was given pain control and potassium was replaced with IV and oral. Bedside ultrasound was performed which showed possible sludge in the gallbladder no gallstones, common bile duct was unable to be visualized. Patient was signed out to the oncoming provider pending CT scan and final disposition. <Nayeli Flower MD - Last Filed: 03/12/25 02:43> Medical Records Medical records reviewed: Yes I reviewed the patient's medical records. Vital Signs: 03/11/25 21:38 03/12/25 00:00 03/12/25 00:31 Temperature 98.8 F Temperature Source Oral Pulse Rate 92 H 80 Pulse Rate [Right] 94 H Respiratory Rate 16 Blood Pressure 127/88 111/72 Blood Pressure [Right Arm] 131/57 L Blood Pressure Mean [Right Arm] 81 02 Sat by Pulse Oximetry 97 98 95 Oxygen Delivery Method Room Air 03/12/25 01:00 03/12/25 01:24 03/12/25 01:30 Temperature Temperature Source Pulse Rate 76 105 H 94 H Pulse Rate [Right] Respiratory Rate Blood Pressure 117/67 136/98 H 137/80 Blood Pressure [Right Arm] Blood Pressure Mean [Right Arm] 02 Sat by Pulse Oximetry 94 L 96 98 Oxygen Delivery Method 03/12/25 02:01 Temperature Temperature Source Pulse Rate 93 H Pulse Rate [Right] Respiratory Rate Blood Pressure 126/69 Blood Pressure [Right Arm] Blood Pressure Mean [Right Arm] 02 Sat by Pulse Oximetry 96 Oxygen Delivery Method Lab Data Lab Results 03/11/25 22:37: WBC 5.8, RBC 3.95 L, Hgb 12.6, Hct 38.1, MCV 96.5, MCH 31.9 H, MCHC 33.1, RDW 13.1, Plt Count 240, MPV 10.2, Neut % (Auto) 59.6, Lymph % (Auto) 28.3, [place] % (Auto) 9.6 H, Eos % (Auto) 2.1, Baso % (Auto) 0.2, Neut # (Auto) 3.4, Lymph # (Auto) 1.6, [place] # (Auto) 0.6, Eos # (Auto) 0.1, Baso # (Auto) 0.0, PT 10.6, INR 0.95, Sodium 140, Potassium 2.9 L*, Chloride 99, Carbon Dioxide 29, Anion Gap 14.9, BUN 16, Creatinine 0.70, Estimated Creat Clear 121, Estimated GFR 88, Est GFR ( Amer) 106, Glucose 117 H, Calcium 9.4, Total Bilirubin 0.3, AST 34, ALT 21, Alkaline Phosphatase 111, Total Protein 7.4, Albumin 4.3, Globulin 3.1, Albumin/Globulin Ratio 1.4, Lipase 127 Orders (Tests/Meds): ED MEDICATIONS Generic Name Dose Route Start Last Admin Trade Name Freq PRN Reason Stop Dose Admin Lactated Ringer's 1,000 mls @ 100 mls/hr 03/12/25 02:00 Lactated Ringer's 1000 Ml Bag IV 04/11/25 01:59 .Q10H DRE Morphine Sulfate 2 mg 03/12/25 01:57 Morphine 2mg/Ml Syringe IV 04/11/25 01:56 Q2HP PRN Severe Pain (7-10) Sodium Chloride 8 ml 03/12/25 01:57 Sodium Chloride 0.9% 10ml Vial IV 04/11/25 01:56 NEEDED PRN dilute pepcid Discontinued Medications Generic Name Dose Route Start Last Admin Trade Name Freq PRN Reason Stop Dose Admin Famotidine 20 mg 03/12/25 01:57 Famotidine 20mg/2ml Vial IV 03/12/25 01:58 ONCE ONE Potassium Chloride/Water 100 mls @ 100 mls/hr 03/11/25 23:30 03/12/25 01:41 Potassium Chloride 10meq/100ml Ivpb IV 03/12/25 02:29 100 mls/hr Q1H DRE Administration Sodium Chloride 1,000 mls @ 999 mls/hr 03/11/25 23:54 03/11/25 23:56 Sod Chlor 0.9% 1000ml Bag IV 03/12/25 00:54 999 mls/hr .Q1H1M ONE Administration Piperacillin Sod/Tazobactam 50 mls @ 100 mls/hr 03/12/25 01:29 03/12/25 02:00 Sod 3.375 gm/ Sodium Chloride IV 03/12/25 01:58 100 mls/hr ONCE ONE Administration Iopamidol 75 ml 03/11/25 23:25 03/11/25 23:26 Iopamidol-370 (76%);100ml Bottle IV 03/11/25 23:26 75 ml ONCE ONE Administration Morphine Sulfate 4 mg 03/11/25 22:19 03/11/25 22:29 Morphine 4mg/Ml Syringe IV 03/11/25 22:20 4 mg ONCE ONE Administration Ondansetron HCl 4 mg 03/11/25 22:19 03/11/25 22:28 Ondansetron 4mg/2ml Vial IV 03/11/25 22:20 4 mg ONCE ONE Administration Potassium Chloride 40 meq 03/12/25 00:57 03/12/25 01:42 Potassium Chloride 20meq Tab PO 03/12/25 00:58 40 meq ONCE ONE Administration Sodium Chloride 10 ml 03/11/25 23:25 03/11/25 23:26 Sodium Chloride 0.9% 10ml Syr (Rad Only) IV 03/11/25 23:26 10 ml ONCE ONE Administration ORDERS Category Date Time Status Type and Screen Stat BBK 03/11/25 22:[address] abdomen pelvis w con Stat Cat Scan 03/11/25 22:19 Completed Consult to General Surgery [CONS] Routine Cons 03/12/25 02:01 Ordered POCUS Point of Care (ER Only) Stat Exams 03/11/25 23:24 Completed CBC w/Auto Diff [Complete Blood Count Auto Diff] Stat Lab 03/11/25 22:37 Completed CMP [Comprehensive Metabolic Panel] Stat Lab 03/11/25 22:37 Completed Complete Blood Count Auto Diff AMLAB Lab 03/13/25 06:00 Ordered Comprehensive Metabolic Panel AMLAB Lab 03/13/25 06:00 Ordered Lipase Stat Lab 03/11/25 22:37 Completed Magnesium AMLAB Lab 03/13/25 06:00 Ordered PT INR [Prothrombin Time INR] Stat Lab 03/11/25 22:37 Completed Medical Decision Narrative: Patient is a 54-year-old female with a past medical history of cystitis as well as previous CVA who presented to the emergency department with right sided upper abdominal pain. On arrival, patient was hemodynamically stable with unremarkable vital signs. On exam, patient had right upper quadrant abdominal tenderness, exam was otherwise unremarkable. Differential includes but not limited to: Pancreatitis, cholelithiasis, cholecystitis, choledocholithiasis, dehydration, electrolyte abnormalities, amongst others. Patient's workup was reviewed and interpreted by myself, CBC showed no leukocytosis, hemoglobin stable. INR unremarkable. Chemistry notable for potassium of 2.9 otherwise unremarkable with normal LFTs. Patient was given pain control and potassium was replaced with IV and oral. Bedside ultrasound was performed which showed possible sludge in the gallbladder no gallstones, common bile duct was unable to be visualized. Patient was signed out to the oncoming provider pending CT scan and final disposition. Flower: Upon my assumption of care patient is stable and resting more comfortably since she received pain medications. I agree with the assessment and plan from Dr. Rubio. I reviewed the ultrasound images obtained by Dr. Rubio and agree that there is sludge in the gallbladder, common bile duct was not visualized from what I saw. The gallbladder wall does not appear significantly thickened. CT abdomen pelvis ultimately resulted demonstrating common bile duct dilation greater than 7 mm, patient also has evidence of duodenitis. See radiology read for full interpretation. On reassessment patient's pain is improved but not absent. She is receiving repletion for hypokalemia. I recommended admission for continued symptomatic management and general surgery evaluation. Patient was agreeable to this plan. IV antibiotics being administered for empiric intra-abdominal coverage given concern for cholecystitis both clinically and based on imaging. I discussed this case with the hospitalist who graciously accepted the patient for admission. Procedures <Lupe Rubio, - Last Filed: 03/12/25 01:24> Limited Ultrasound Indication:: Right upper quadrant abdominal pain Findings:: Gallbladder with no gallbladder wall thickening, possible sludge no evidence of gallstones, common bile duct unable to be visualized secondary to poor windows Critical Care <Lupe Rubio DO - Last Filed: 03/12/25 01:24> Critical Care Time Critical Care Time: No
--- NOTE | 2025-03-11 22:19 | CT_ITS ---
PROCEDURE INFORMATION: Exam: CT Abdomen And Pelvis With Contrast Exam date and time: 03/11/2025 11:23 PM Age: 54 years old Clinical indication: Abdominal pain; Other: Ruq; Additional info: Ruq abdominal tenderness TECHNIQUE: Imaging protocol: Computed tomography of the abdomen and pelvis with contrast. Radiation optimization: All CT scans at this facility use at least one of these dose optimization techniques: automated exposure control; mA and/or kV adjustment per patient size (includes targeted exams where dose is matched to clinical indication); or iterative reconstruction. Contrast material: ISOVUE; Contrast volume: 75 ml; Contrast route: IV; COMPARISON: CR XR KUB 02/19/2024 12:06 PM FINDINGS: Lungs: Lung bases are clear. Esophagus: The esophagus is normal. Liver: Normal. No mass. Gallbladder and biliary ducts: Mild prominence of the common bile duct measuring 7 mm coronal image 1001/41. The gallbladder is normal. Pancreas: Pancreas appears normal. Spleen: Spleen is normal Adrenal glands: The adrenal glands appear normal.The kidneys are normal. Kidneys and ureters: See Adrenal glands finding. Stomach and bowel: Mild antral and duodenal wall thickening and distension image 3/43 and coronal image 1001/38. Retained stool in the colon. The stomach is normal. Appendix: A normal appendix is identified. Intraperitoneal space: Unremarkable. No free air. No significant fluid collection. Vasculature: No evidence for lower lobe pulmonary embolus. The aorta demonstrates moderate atherosclerotic calcification. Visceral arteries are patent. Portal vein, splenic vein, SMV are patent. Lymph nodes: No free air or fluid or adenopathy. Urinary bladder: The bladder is normal. Reproductive: The uterus is normal. Bones/joints: Unremarkable. No acute fracture. Soft tissues: Unremarkable. IMPRESSION: 1. No free air or fluid or adenopathy. 2. Mild antral and duodenal wall thickening and distension image 3/43 and coronal image 1001/38. Possible mild antritis and duodenitis. 3. Mild prominence of the common bile duct measuring 7 mm coronal image 1001/41. Ultrasound may be helpful. 4. Retained stool in the colon. 5. A normal appendix is identified.
[2025-03-11] MEDS: ONDANSETRON 4MG/2ML VIAL 4 MG IV (22:28)
[2025-03-11] MEDS: MORPHINE 4MG/ML SYRINGE 4 MG IV (22:29)
[2025-03-11 22:48] LABS: Hematocrit 38.1 % (37.0-47.0); Hemoglobin 12.6 g/dL (12.2-16.2); Immature Granulocytes % 0.2 %; Mean Corpuscular HGB Conc 33.1 g/dL (31.8-35.4); Mean Corpuscular Hemoglobin 31.9 pg (27.0-31.2); Mean Corpuscular Volume 96.5 fl (81-99); Nucleated Red Blood Cells % 0 %; Platelet Count 240 K/mm3 (142-424); Red Blood Count 3.95 M/mm3 (4.20-5.40); Red Cell Distribution Width-SD 45.9 fL; White Blood Count 5.8 K/mm3 (4.8-10.8)
[2025-03-11 23:02] LABS: Albumin Level 4.3 g/dl (3.5-5.0); Chloride 99 mmol/L (98-107); Sodium 140 mmol/L (136-145)
[2025-03-11 23:05] LABS: Alanine Aminotransferase 21 U/L (12-78); Albumin/Globulin Ratio 1.4 (1.1-1.8); Alkaline Phosphatase 111 U/L (38-126); Anion Gap 14.9 mEq/L (5-15); Aspartate Amino Transferase 34 U/L (14-36); Bilirubin,Total 0.3 mg/dl (0.2-1.3); Blood Urea Nitrogen 16 mg/dl (7-17); Carbon Dioxide 29 mmol/L (22.0-30.0); Creatinine Clearance Estimated 121 mL/min (50-200); Creatinine,Serum 0.70 mg/dl (0.52-1.04); Estimated Glomerular Filt Rate 88 ml/min (>60); GFR (African American) 106 ML/MIN (>60); Globulin 3.1 g/dL (1.3-3.2); Lipase 127 U/L (23-300); Total Protein,Serum 7.4 g/dl (6.3-8.2)
[2025-03-11 23:06] LABS: Calcium 9.4 mg/dl (8.4-10.2); Glucose 117 mg/dl (74-100)
[2025-03-11 23:09] LABS: Potassium 2.9 mmoL/L (3.5-5.1)
[2025-03-11 23:26] LABS: INR 0.95 (0.9-1.1); Prothrombin Time 10.6 seconds (10.1-12.5)
[2025-03-11] MEDS: SODIUM CHLORIDE 0.9% 10ML SYR (RAD ONLY) 10 ML IV (23:26)
[2025-03-11] MEDS: IOPAMIDOL-370 (76%);100ML BOTTLE 75 ML IV (23:26)
[2025-03-11] MEDS: 0.9 % SODIUM CHLORIDE 1000ML 1,000 ML 999 ML IV (23:56)
[2025-03-12] VITALS (13 sets, daily range): BP systolic 90–150; BP diastolic 56–98; PULSE 73–105; RESP 14–18; TEMP 36.6–37.1; O2SAT 94–98; BMI 31.6
[2025-03-12] MEDS: POTASSIUM CHLORIDE 20MEQ TAB 40 MEQ PO (01:42)
[2025-03-12] MEDS: PIPERACILLIN/TAZO 3.375 GM in 0.9 % SODIUM CHLORIDE 50 ML IV (02:00)
--- NOTE | 2025-03-12 02:40 | P.HP_ITS ---
<Statement entered by Ramírez Thomason MD - 03/13/25 16:16> Personally evaluated patient and agree with plan of care as outlined by the DOCTOR CHIROPRACTIC. History of Present Illness *Admission Date: 03/12/25 *Reason for visit:: Right upper quadrant pain 10 of 10 *History of present illness: Mr. Charles who apparently suffered some form of stroke in November 2023 and is aphasia with right-sided weakness and hand contracture right hand. She was brought back for cystitis by her family in August 2024 and now has been placed in a long-term care. Today apparently there was an episode after eating where she developed 10 out of 10 pain in the right upper quadrant without nausea or vomiting. Patient is nonverbal but seems to understand some questions and answers with a yes or no sometime. Talking with ER provider do feel that it would be prudent to admit her for further evaluation of potential gallbladder symptoms related to that the pain was severe and started after eating. Labs show no significant abnormalities. CT scan of the abdomen was done. Will keep the patient n.p.o. except for ice chips and will consult general surgery. Patient is able to move right leg but unsure if patient can ambulate independently she was not stood while I was in the emergency room checking her., Also due to this did not roll her but she was able to sit up some that I could listen to her posterior lungs. But will check for skin breakdown after the patient is placed up on the floor. [facility] Disclaimer: The information contained in this section may have been updated after the patient was seen, as this information can be updated by other users. Medical History (Updated 03/12/25 @ 03:[address] Spain APRN) Tobacco abuse Metatarsal fracture HTN (hypertension) Nondisp fracture of fifth right metatarsal bone with routine healing Recent cerebrovascular accident UTI (urinary tract infection) Acute cystitis Housing instability Aphasia as late effect of cerebrovascular accident Stroke UTI (urinary tract infection) Social History (Updated 03/12/25 @ 02:[address] Spain APRN) Smoking Status: Former smoker alcohol intake: never current occupational status: disabled Travel in the last 8 weeks?: None additional social history: Is presently in a long-term care Have you lived/traveled outside US in past 30 days?: No Contact w/someone who lives/traveled outside US past 30 days?: No Exposure to someone with infectious disease in past 14 days?: No Do you have a fever (greater than 100.4 F or 38 C)?: No Have you tested positive for COVID-19?: No Exposed to someone with COVID-19 in past 14 days?: No Do you have a sore throat?: No Do you have a cough?: No Do you have any weakness?: No Do you have any diarrhea?: No Are you experiencing any unusual bleeding?: No Do you have any muscle aches/pain?: No Do you have any abdominal pain?: Yes Are you experiencing loss of taste or smell?: No Other Medical History Have you received the Flu Vaccine for this season: No Have you received the Pneumonia Vaccine: No Review of Systems Review of Systems Review of systems:: pertinent systems reviewed and negative unless documented below Constitutional Constitutional: Reports as per HPI Comments: Status post CVA with right-sided weakness right hand contracture presently living in a long-term care taking a history are having the patient answer questions is very difficult to know exactly how much he understands to exactly what she is trying to express Eyes Eyes: Reports as per HPI ENT Ears, Nose, Mouth, and Throat: Reports as per HPI *Cardiovascular Cardiovascular: Reports as per HPI *Respiratory Respiratory: Reports as per HPI *Gastrointestinal Gastrointestinal: Reports abdominal pain (Report that after eating had right upper quadrant pain severe) *Genitourinary Genitourinary: Reports as per HPI *Musculoskeletal Musculoskeletal: Reports abnormal gait, Reports atrophy, Reports limited range of motion (Right hand contracture) and Reports muscle weakness Integumentary/Breasts Skin/Breast: Reports as per HPI *Neurologic Neurologic: Reports abnormal gait Comments: Poststroke right-sided weakness right hand contracture approximately over 3-year-old Psychiatric Psychiatric: Reports as per HPI Comments: Unable to communicate freely does make good eye contact sometimes able to say yes or no Endocrine Endocrine: Reports as per HPI Hematologic/Lymphatic Hematologic/Lymphatic: Reports as per HPI Allergic/Immunologic Allergic/Immunologic: Reports as per HPI Meds Home Medications and Allergies Home Medications ?Medication ?Instructions ?Recorded ?Confirmed ?Type aspirin 81 mg tablet,delayed 81 mg PO DAILY #90 tabs 0 09/13/24 Rx release atorvastatin 40 mg tablet 40 mg PO HS 3 months #90 tab s 09/13/24 Rx cefdinir 300 mg capsule 300 mg PO Q12H 5 days #10 ca ps 09/13/24 Rx cetirizine 10 mg tablet 10 mg PO DAILY #90 tabs 08/31 12/23 Rx clopidogrel 75 mg tablet 75 mg PO DAILY #90 tabs 08/31 12/23 Rx ergocalciferol (vitamin D2) 1,250 50,000 unit PO WEEKL Y #4 caps 09/13/24 Rx mcg (50,000 unit) capsule (Vitamin D2) escitalopram oxalate 10 mg tablet 10 mg PO DAILY #30 t abs 09/13/24 Rx fluticasone propionate 50 2 spray intranasal DAILY #16 grams 09/13/24 Rx mcg/actuation nasal spray,suspension metformin 500 mg tablet 500 mg PO DAILY #90 tabs Rx New Prescriptions to Start Prescriptions: Allergies Allergy/AdvReac Type Severity Reaction Status Date / Time ibuprofen Allergy Verified 07/06/24 15:00 Exam Data for Last 24 hours Vital signs and Labs for Last 24 Hours: Temp Pulse Resp BP Pulse Ox O2 Del Method 98.8 F 93 H 16 126/69 96 Room Air 03/11/25 21:38 03/12/25 02:01 03/11/25 21:38 03/12/25 02:01 03/12/25 02:01 03/11/25 21:38 Laboratory Results - last 24 hr 03/11/25 22:37: WBC 5.8, RBC 3.95 L, Hgb 12.6, Hct 38.1, MCV 96.5, MCH 31.9 H, MCHC 33.1, RDW 13.1, Plt Count 240, MPV 10.2, Neut % (Auto) 59.6, Lymph % (Auto) 28.3, [place] % (Auto) 9.6 H, Eos % (Auto) 2.1, Baso % (Auto) 0.2, Neut # (Auto) 3.4, Lymph # (Auto) 1.6, [place] # (Auto) 0.6, Eos # (Auto) 0.1, Baso # (Auto) 0.0, PT 10.6, INR 0.95, Sodium 140, Potassium 2.9 L*, Chloride 99, Carbon Dioxide 29, Anion Gap 14.9, BUN 16, Creatinine 0.70, Estimated Creat Clear 121, Estimated GFR 88, Est GFR ( Amer) 106, Glucose 117 H, Calcium 9.4, Total Bilirubin 0.3, AST 34, ALT 21, Alkaline Phosphatase 111, Total Protein 7.4, Albumin 4.3, Globulin 3.1, Albumin/Globulin Ratio 1.4, Lipase 127 I & O for Last 24 hours: Intake & Output 03/09/25 03/10/25 03/11/25 03/12/25 05:59 05:59 05:59 05:59 Weight 180 lb Radiology Reports for the Last 24 Hours: No free air or fluid or adenopathy. 2. Mild antral and duodenal wall thickening and distension image 3/43 and coronal image 1001/38. Possible mild antritis and duodenitis. 3. Mild prominence of the common bile duct measuring 7 mm coronal image 1001/41. Ultrasound may be helpful. 4. Retained stool in the colon. 5. A normal appendix is identified. Constitutional Constitutional: no acute distress, obese and cooperative Comments: The patient is in no pain at this time sometimes stares blankly at you is if she does not understand what you are asking of her. *Routine HEENT Exam Head: Present normocephalic and atraumatic Eye: Present EOMI and PERRL ENT: Present mucous membranes moist *Routine Neck Exam Neck: Present supple *Routine Respiratory Exam Respiratory: Present decreased breath sounds, CTA bilaterally and normal respiratory effort *Routine Cardiovascular Exam Cardiovascular: Present RRR, Normal S1 and Normal S2 *Routine Abdominal Exam Abdominal: Present soft and normoactive bowel sounds Comments: Examination at this time to palpation found no pain presently, no mass no guarding no sign of CVA tenderness *Routine Rectal Exam Rectal:: deferred *Routine Genitalia Exam Genitalia:: deferred *Routine Extremities Exam Extremities: Present pulses intact Comments: Patient right arm is not usable. When moving her skin her to move it this appears not to work from the shoulder down. There is a hand contracture contracture a wash rag was placed in between her fingers and palm Routine Back/Spine/Pelvis Exam Back/Spine: Present full ROM Comments: Able to sit patient up no signs of back pain no signs of any significant scoliosis *Routine Skin Exam Skin: Present intact and warm Comments: When examined in the ER was not able to roll turn or disrobed the patient. I have gotten with this staff on the floor to be able to check her buttocks for any type of skin breakdown and also to recheck the back of her heels *Routine Neurological Exam Neurological: Present alert, CN II-XII intact, motor deficit, normal reflexes, altered mental status, normal tone, vision grossly intact and hearing grossly intact Comments: Normal tone except for right arm and hand., I did not stand the patient but there is almost no movement of the right arm. And appears to be some weakness of the right leg but she was able to flex it at the hip and the knee for me Routine Psychiatric Exam Comments: Difficult to determine due to the patient's past history of stroke H&P: Result Impressions 1. Episode of significant pain in upper right quadrant after eating, from the history I have this is the first time it has happened. CT scan was done 2. Patient is poststroke from more than a year ago with right-sided weakness right arm is almost not usable able to move right leg Imaging and Cardiology CT scan - abdomen: Additional comments: No free air or fluid or adenopathy. 2. Mild antral and duodenal wall thickening and distension image 3/43 and coronal image 1001/38. Possible mild antritis and duodenitis. 3. Mild prominence of the common bile duct measuring 7 mm coronal image 1001/41. Ultrasound may be helpful. 4. Retained stool in the colon. 5. A normal appendix is identified. Assessment and Plan *Assessment and plan (1) Right upper quadrant abdominal pain: Status: Acute Category: Medical Code(s): R10.11 - Right upper quadrant pain (2) Duodenitis: Status: Acute Category: Medical Code(s): K29.80 - Duodenitis without bleeding (3) Hypokalemia: Status: Acute Category: Medical Code(s): E87.6 - Hypokalemia (4) Stroke: Status: Acute Qualifiers: CVA mechanism: occlusion Laterality of affected vessel: left Precerebral and cerebral artery: cerebellar artery Qualified Code(s): I63.542 - Cerebral infarction due to unspecified occlusion or stenosis of left cerebellar artery Category: Medical Code(s): I63.9 - Cerebral infarction, unspecified (5) Aphasia as late effect of cerebrovascular accident: Status: Acute Category: Medical Code(s): I69.320 - Aphasia following cerebral infarction (6) Right sided weakness: Status: Acute Category: Medical Code(s): R53.1 - Weakness (7) Diabetes: Status: Acute Qualifiers: Diabetes mellitus type: type 2 Diabetes mellitus penitentiary insulin use: without penitentiary use Diabetes mellitus complication status: with other specified complication Qualified Code(s): E11.69 - Type 2 diabetes mellitus with other specified complication Category: Medical Code(s): E11.9 - Type 2 diabetes mellitus without complications Plan 1. Due to the potential that this episode of severe pain was related to eating and possible dysfunctional gallbladder or bile duct dysfunction patient will be admitted to the floor. Will place a surgical consult for general surgery for in the morning. Will keep the patient n.p.o. except for ice chips at the moment and add IV fluids. Patient at present has no pain was will continue to monitor this and place her on the floor. 2. Will do physical therapy evaluation to determine level of ability for self- care, noted the patient is a long-term care resident now but unsure if she is able to walk independently
--- NOTE | 2025-03-12 02:45 | PC.NURSE ---
Report called to Pancho on 2nd floor
[2025-03-12] MEDS: LACTATED RINGERS 1000ML 1,000 ML 100 ML IV ×2 (03:32→16:48)
[2025-03-12] MEDS: FAMOTIDINE 20MG/2ML VIAL 20 MG IV (03:32)
[2025-03-12 07:32] LABS: Gamma Glutamyl Transpeptidase 24 U/L (12-43); Lipase 164 U/L (23-300)
[2025-03-12 08:53] LABS: Hematocrit 36.0 % (37.0-47.0); Hemoglobin 11.9 g/dL (12.2-16.2); Immature Granulocytes % 0.2 %; Mean Corpuscular HGB Conc 33.1 g/dL (31.8-35.4); Mean Corpuscular Hemoglobin 32.1 pg (27.0-31.2); Mean Corpuscular Volume 97.0 fl (81-99); Nucleated Red Blood Cells % 0 %; Platelet Count 215 K/mm3 (142-424); Red Blood Count 3.71 M/mm3 (4.20-5.40); Red Cell Distribution Width-SD 46.7 fL; White Blood Count 5.3 K/mm3 (4.8-10.8)
[2025-03-12 08:59] LABS: Albumin Level 3.9 g/dl (3.5-5.0); Chloride 106 mmol/L (98-107); Sodium 138 mmol/L (136-145)
[2025-03-12 09:00] LABS: Potassium 4.0 mmoL/L (3.5-5.1)
[2025-03-12 09:02] LABS: Alanine Aminotransferase 21 U/L (12-78); Albumin/Globulin Ratio 1.4 (1.1-1.8); Anion Gap 14.0 mEq/L (5-15); Aspartate Amino Transferase 34 U/L (14-36); Blood Urea Nitrogen 14 mg/dl (7-17); Carbon Dioxide 22 mmol/L (22.0-30.0); Creatinine Clearance Estimated 124 mL/min (50-200); Creatinine,Serum 0.70 mg/dl (0.52-1.04); Estimated Glomerular Filt Rate 88 ml/min (>60); GFR (African American) 106 ML/MIN (>60); Globulin 2.8 g/dL (1.3-3.2); Total Protein,Serum 6.7 g/dl (6.3-8.2)
[2025-03-12 09:03] LABS: Alkaline Phosphatase 93 U/L (38-126); Bilirubin,Total 0.5 mg/dl (0.2-1.3); Calcium 8.7 mg/dl (8.4-10.2); Glucose 95 mg/dl (74-100)
[2025-03-12] MEDS: POLYETHYLENE GLYCOL 3350 17 GM PACKET PO (09:12)
[2025-03-12] MEDS: PIPERCILLIN/TAZO 3.375 GM in 0.9 % SODIUM CHLORIDE 50 ML IV ×2 (09:12→16:48)
[2025-03-12] MEDS: PANTOPRAZOLE 40MG VIAL 40 MG IV ×2 (09:13→20:28)
--- NOTE | 2025-03-12 09:39 | P.CONPHA_ITS ---
Pharmacy Intervention Comments: MEDICATION RECONCIL[facility] COMPLETE [facility]
--- NOTE | 2025-03-12 09:39 | HMH.PHAINT1 ---
Pharmacy Intervention Comments: MEDICATION [facility].
--- NOTE | 2025-03-12 09:47 | P.CONS_ITS ---
History of Present Illness *Admission Date: 03/12/25 *Reason for visit:: Right upper quadrant pain *History of present illness: This is a 54-year-old female seen in consultation after presenting to the emergency department with upper abdominal pain (mostly in the right upper quadrant). Currently she feels better . CT scan dated 03/11/2025 reviewed. Mild antral and duodenal wall thickening, as well as, distention noted. Mild antritis/duodenitis considered. Mild prominence of the common bile duct measuring 7 mm noted. Emergency department evaluation dated 03/11/2025 reviewed. Point of care ultrasound showed possible sludge within the gallbladder. No stones noted. No evidence of wall thickening noted. Forwarded from admission H&P: Mr. Charles who apparently suffered some form of stroke in November 2023 and is aphasia with right-sided weakness and hand contracture right hand. She was brought back for cystitis by her family in August 2024 and now has been placed in a long-term care. Today apparently there was an episode after eating where she developed 10 out of 10 pain in the right upper quadrant without nausea or vomiting. Patient is nonverbal but seems to understand some questions and answers with a yes or no sometime. Talking with ER provider do feel that it would be prudent to admit her for further evaluation of potential gallbladder symptoms related to that the pain was severe and started after eating. Labs show no significant abnormalities. CT scan of the abdomen was done. Will keep the patient n.p.o. except for ice chips and will consult general surgery. Patient is able to move right leg but unsure if patient can ambulate independently she was not stood while I was in the emergency room checking her., Also due to this did not roll her but she was able to sit up some that I could listen to her posterior lungs. But will check for skin breakdown after the patient is placed up on the floor. [facility] Disclaimer: The information contained in this section may have been updated after the patient was seen, as this information can be updated by other users. Medical History (Updated 03/12/25 @ 09:53 by Td Milligan MD) Tobacco abuse Metatarsal fracture HTN (hypertension) Nondisp fracture of fifth right metatarsal bone with routine healing Recent cerebrovascular accident UTI (urinary tract infection) Acute cystitis Housing instability Aphasia as late effect of cerebrovascular accident Stroke UTI (urinary tract infection) Social History (Updated 03/12/25 @ 02:[address] [place] APRN) Smoking Status: Former smoker alcohol intake: never current occupational status: disabled Travel in the last 8 weeks?: None additional social history: Is presently in a long-term care Have you lived/traveled outside US in past 30 days?: No Contact w/someone who lives/traveled outside US past 30 days?: No Exposure to someone with infectious disease in past 14 days?: No Do you have a fever (greater than 100.4 F or 38 C)?: No Have you tested positive for COVID-19?: No Exposed to someone with COVID-19 in past 14 days?: No Do you have a sore throat?: No Do you have a cough?: No Do you have any weakness?: No Do you have any diarrhea?: No Are you experiencing any unusual bleeding?: No Do you have any muscle aches/pain?: No Do you have any abdominal pain?: Yes Are you experiencing loss of taste or smell?: No Review of Systems Constitutional Constitutional: Reports as per HPI *Cardiovascular Cardiovascular: Denies dyspnea *Respiratory Respiratory: Denies dyspnea *Gastrointestinal Gastrointestinal: Reports as per HPI *Musculoskeletal Musculoskeletal: Reports abnormal gait *Neurologic Neurologic: Reports abnormal gait Meds Home Medications and Allergies Home Medications ?Medication ?Instructions ?Recorded ?Confirmed ?Type aspirin 81 mg tablet,delayed 81 mg PO DAILY #90 tabs 0 09/13/24 03/12/25 Rx release atorvastatin 40 mg tablet 40 mg PO HS 3 months #90 tab s 09/13/24 03/12/25 Rx cetirizine 10 mg tablet 10 mg PO DAILY #90 tabs 08/3103/12/25 Rx clopidogrel 75 mg tablet 75 mg PO DAILY #90 tabs 08/3103/12/25 Rx ergocalciferol (vitamin D2) 1,250 50,000 unit PO WEEKL Y #4 caps 09/13/24 03/12/25 Rx mcg (50,000 unit) capsule (Vitamin D2) fluticasone propionate 50 2 spray intranasal DAILY #16 grams 09/13/24 03/12/25 Rx mcg/actuation nasal spray,suspension metformin 500 mg tablet 500 mg PO DAILY #90 tabs 03/12/25 Rx escitalopram oxalate 10 mg tablet 10 mg PO DAILY 03/1203/12/25 History ezetimibe 10 mg tablet 10 mg PO DAILY 03/12/2502/28 History losartan 100 1 tab PO DAILY 03/12/2502/28 History mg-hydrochlorothiazide 25 mg tablet New Prescriptions to Start Prescriptions: Allergies Allergy/AdvReac Type Severity Reaction Status Date / Time ibuprofen Allergy Verified 07/06/24 15:00 Exam (Inpt) Vital signs and Labs for Last 24 Hours: Temp Pulse Resp BP Pulse Ox O2 Del Method 97.8 F 89 16 128/73 96 Room Air 03/12/25 08:00 03/12/25 08:00 03/12/25 08:00 03/12/25 08:00 03/12/25 08:00 03/12/25 09:00 Laboratory Results - last 24 hr 03/11/25 22:35: Blood Type O Positive, Antibody Screen Negative 03/11/25 22:37: WBC 5.8, RBC 3.95 L, Hgb 12.6, Hct 38.1, MCV 96.5, MCH 31.9 H, MCHC 33.1, RDW 13.1, Plt Count 240, MPV 10.2, Neut % (Auto) 59.6, Lymph % (Auto) 28.3, [place] % (Auto) 9.6 H, Eos % (Auto) 2.1, Baso % (Auto) 0.2, Neut # (Auto) 3.4, Lymph # (Auto) 1.6, [place] # (Auto) 0.6, Eos # (Auto) 0.1, Baso # (Auto) 0.0, PT 10.6, INR 0.95, Sodium 140, Potassium 2.9 L*, Chloride 99, Carbon Dioxide 29, Anion Gap 14.9, BUN 16, Creatinine 0.70, Estimated Creat Clear 121, Estimated GFR 88, Est GFR ( Amer) 106, Glucose 117 H, Calcium 9.4, Total Bilirubin 0.3, AST 34, ALT 21, Alkaline Phosphatase 111, Total Protein 7.4, Albumin 4.3, Globulin 3.1, Albumin/Globulin Ratio 1.4, Lipase 127 03/12/25 06:40: WBC 5.3, RBC 3.71 L, Hgb 11.9 L, Hct 36.0 L, MCV 97.0, MCH 32.1 H, MCHC 33.1, RDW 13.2, Plt Count 215, MPV 10.6 H, Neut % (Auto) 64.4, Lymph % (Auto) 25.5, [place] % (Auto) 7.6, Eos % (Auto) 2.1, Baso % (Auto) 0.2, Neut # (Auto) 3.4, Lymph # (Auto) 1.3, [place] # (Auto) 0.4, Eos # (Auto) 0.1, Baso # (Auto) 0.0, Sodium 138, Potassium 4.0 D, Chloride 106, Carbon Dioxide 22, Anion Gap 14.0, BUN 14, Creatinine 0.70, Estimated Creat Clear 124, Estimated GFR 88, Est GFR ( Amer) 106, Glucose 95, Calcium 8.7, Total Bilirubin 0.5, GGT 24, AST 34, ALT 21, Alkaline Phosphatase 93, Total Protein 6.7, Albumin 3.9, Globulin 2.8, Albumin/Globulin Ratio 1.4, Lipase 164 I & O for Labs for Last 24 Hours: Intake & Output 03/09/25 03/10/25 03/11/25 03/12/25 11:59 11:59 11:59 11:59 Intake Total 514 / 514 Output Total 100 / 100 Balance 414 / 414 Weight 184 lb 14.4 oz Constitutional: no acute distress Respiratory: Absent respiratory distress Cardiac: Absent Tachycardia GI: Present soft and tenderness (Minimal tenderness to deep palpation in upper abdomen (right upper quadrant and epigastric region more than left upper quadrant)) Results Labs 03/12/25 06:40 03/12/25 06:40 Labs: Laboratory Results - last 24 hr 03/11/25 22:35: Blood Type O Positive, Antibody Screen Negative 03/11/25 22:37: WBC 5.8, RBC 3.95 L, Hgb 12.6, Hct 38.1, MCV 96.5, MCH 31.9 H, MCHC 33.1, RDW 13.1, Plt Count 240, MPV 10.2, Neut % (Auto) 59.6, Lymph % (Auto) 28.3, [place] % (Auto) 9.6 H, Eos % (Auto) 2.1, Baso % (Auto) 0.2, Neut # (Auto) 3.4, Lymph # (Auto) 1.6, [place] # (Auto) 0.6, Eos # (Auto) 0.1, Baso # (Auto) 0.0, PT 10.6, INR 0.95, Sodium 140, Potassium 2.9 L*, Chloride 99, Carbon Dioxide 29, Anion Gap 14.9, BUN 16, Creatinine 0.70, Estimated Creat Clear 121, Estimated GFR 88, Est GFR ( Amer) 106, Glucose 117 H, Calcium 9.4, Total Bilirubin 0.3, AST 34, ALT 21, Alkaline Phosphatase 111, Total Protein 7.4, Albumin 4.3, Globulin 3.1, Albumin/Globulin Ratio 1.4, Lipase 127 03/12/25 06:40: WBC 5.3, RBC 3.71 L, Hgb 11.9 L, Hct 36.0 L, MCV 97.0, MCH 32.1 H, MCHC 33.1, RDW 13.2, Plt Count 215, MPV 10.6 H, Neut % (Auto) 64.4, Lymph % (Auto) 25.5, [place] % (Auto) 7.6, Eos % (Auto) 2.1, Baso % (Auto) 0.2, Neut # (Auto) 3.4, Lymph # (Auto) 1.3, [place] # (Auto) 0.4, Eos # (Auto) 0.1, Baso # (Auto) 0.0, Sodium 138, Potassium 4.0 D, Chloride 106, Carbon Dioxide 22, Anion Gap 14.0, BUN 14, Creatinine 0.70, Estimated Creat Clear 124, Estimated GFR 88, Est GFR ( Amer) 106, Glucose 95, Calcium 8.7, Total Bilirubin 0.5, GGT 24, AST 34, ALT 21, Alkaline Phosphatase 93, Total Protein 6.7, Albumin 3.9, Globulin 2.8, Albumin/Globulin Ratio 1.4, Lipase 164 Assessment and Plan *Assessment and plan (1) Duodenitis: Status: Acute Category: Medical Code(s): K29.80 - Duodenitis without bleeding (2) Epigastric pain: Status: Acute Category: Medical Code(s): R10.13 - Epigastric pain (3) Right upper quadrant abdominal pain: Status: Acute Category: Medical Code(s): R10.11 - Right upper quadrant pain (4) Common bile duct dilatation: Status: Acute Category: Medical Code(s): K83.8 - Other specified diseases of biliary tract (5) Hypokalemia: Status: Acute Category: Medical Code(s): E87.6 - Hypokalemia Plan The patient has no evidence of gallbladder wall thickening/cholecystitis per CT scan or [id number] ultrasound. She does have mild common bile duct dilatation. Overall, radiographic evidence, laboratory evaluation, and physical exam findings are more consistent with gastritis/duodenitis. Proton pump inhibition Esophagogastroduodenoscopy planned for tomorrow morning Follow-up results of formal right upper quadrant ultrasound to be completed tomorrow Overall management as per primary service (potassium replacement, etc.)
[2025-03-12] MEDS: CLOPIDOGREL 75MG TAB 75 MG PO (15:34)
[2025-03-12] MEDS: ESCITALOPRAM 10MG TABLET 10 MG PO (15:35)
[2025-03-12 16:38] LABS: POC Glucose,Bedside 96 (70-110)
--- NOTE | 2025-03-12 17:14 | PC.NURSE ---
ATTEMPTED TO OBTAIN CONSENT FOR EGD TOMORROW FROM PT SISTER BIBIANA WHO IS HER LISTED CONTACT. FAMILY WANTED TO DISCUSS AMONGST THEMSELVES BEFORE CONSENTING. I GAVE THEM MY CALL BACK NUMBER.
--- NOTE | 2025-03-12 17:37 | PC.NURSE ---
THIS RN WAS CONTACTED BY A TAMMY NOLAND WHO IS A PATIENT FAMILY MEMBER. PATIENTS NEXT OF KIN IS CURRENTLY INCARCERATED AND NOT INVOLVED IN PATIENT DECISION MAKING. TAMMY ALSO TOLD ME THAT PT USUALLY CONSENTS FOR HER SELF. AT THIS TIME PATIENT DOES NOT APPEAR TO UNDERSTAND HER CONDITION OR THE PROCEDURE BEING RECOMMENDED BY HER CARE TEAM. I HAVE PLACED A CARE MANAGEMENT CONSULT.
[2025-03-12] MEDS: ATORVASTATIN 40MG TABLET 40 MG PO (20:28)
[2025-03-12] MEDS: SODIUM CHLORIDE 0.9% 10ML VIAL 10 ML IV (20:29)
--- NOTE | 2025-03-12 21:31 | P.PN_ITS ---
Subjective *Date: 03/12/25 *Time: 21:31 Interval history: RUQ pain has improved, general surgery planning for EGD in the morning. N.p.o. at midnight. Exam Data for Last 24 hours Vital signs and Labs for Last 24 Hours: Temp Pulse Resp BP Pulse Ox O2 Del Method 98.1 F 84 16 124/83 96 Room Air 03/12/25 15:57 03/12/25 15:57 03/12/25 15:57 03/12/25 15:57 03/12/25 15:57 03/12/25 18:09 Laboratory Results - last 24 hr 03/11/25 22:35: Blood Type O Positive, Antibody Screen Negative 03/11/25 22:37: WBC 5.8, RBC 3.95 L, Hgb 12.6, Hct 38.1, MCV 96.5, MCH 31.9 H, MCHC 33.1, RDW 13.1, Plt Count 240, MPV 10.2, Neut % (Auto) 59.6, Lymph % (Auto) 28.3, [place] % (Auto) 9.6 H, Eos % (Auto) 2.1, Baso % (Auto) 0.2, Neut # (Auto) 3.4, Lymph # (Auto) 1.6, [place] # (Auto) 0.6, Eos # (Auto) 0.1, Baso # (Auto) 0.0, PT 10.6, INR 0.95, Sodium 140, Potassium 2.9 L*, Chloride 99, Carbon Dioxide 29, Anion Gap 14.9, BUN 16, Creatinine 0.70, Estimated Creat Clear 121, Estimated GFR 88, Est GFR ( Amer) 106, Glucose 117 H, Calcium 9.4, Total Bilirubin 0.3, AST 34, ALT 21, Alkaline Phosphatase 111, Total Protein 7.4, Albumin 4.3, Globulin 3.1, Albumin/Globulin Ratio 1.4, Lipase 127 03/12/25 06:40: WBC 5.3, RBC 3.71 L, Hgb 11.9 L, Hct 36.0 L, MCV 97.0, MCH 32.1 H, MCHC 33.1, RDW 13.2, Plt Count 215, MPV 10.6 H, Neut % (Auto) 64.4, Lymph % (Auto) 25.5, [place] % (Auto) 7.6, Eos % (Auto) 2.1, Baso % (Auto) 0.2, Neut # (Auto) 3.4, Lymph # (Auto) 1.3, [place] # (Auto) 0.4, Eos # (Auto) 0.1, Baso # (Auto) 0.0, Sodium 138, Potassium 4.0 D, Chloride 106, Carbon Dioxide 22, Anion Gap 14.0, BUN 14, Creatinine 0.70, Estimated Creat Clear 124, Estimated GFR 88, Est GFR ( Amer) 106, Glucose 95, Calcium 8.7, Total Bilirubin 0.5, GGT 24, AST 34, ALT 21, Alkaline Phosphatase 93, Total Protein 6.7, Albumin 3.9, Globulin 2.8, Albumin/Globulin Ratio 1.4, Lipase 164 03/12/25 16:31: POC Glucose 96 I & O for Last 24 hours: Intake & Output 03/09/25 03/10/25 03/11/25 03/12/25 23:59 23:59 23:59 23:59 Intake Total 1354 / 1354 Output Total 102 / 102 Balance 1252 / 1252 Weight 81.647 kg 83.869 kg Constitutional Constitutional: no acute distress and obese *Routine HEENT Exam Head: Present normocephalic Eye: Present EOMI and PERRL ENT: Present mucous membranes moist *Routine Neck Exam Neck: Present supple; Absent lymphadenopathy *Routine Respiratory Exam Respiratory: Present CTA bilaterally *Routine Cardiovascular Exam Cardiovascular: Present RRR *Routine Abdominal Exam Abdominal: Present soft, normoactive bowel sounds and tenderness *Routine Extremities Exam Extremities: Absent cyanosis, clubbing or edema *Routine Skin Exam Skin: Present warm; Absent rash *Routine Neurological Exam Neurological: Present alert Comments: Right-sided residual weakness from CVA. Assessment and Plan *Assessment and plan (1) Common bile duct dilatation: Status: Acute Category: Medical Code(s): K83.8 - Other specified diseases of biliary tract (2) Right upper quadrant abdominal pain: Status: Acute Category: Medical Code(s): R10.11 - Right upper quadrant pain (3) Duodenitis: Status: Acute Category: Medical Code(s): K29.80 - Duodenitis without bleeding Plan Matilda Charles is a 54-year-old female who presented with 1 day history of right upper quadrant pain and was admitted for further evaluation of gastritis/duodenitis, and CBD dilatation. #Right upper quadrant pain #CBD dilatation #Gastritis, duodenitis ? Presented with 1 day onset of RUQ pain. CT abdomen/pelvis showed antral, duodenal wall thickening in addition to CBD measuring 7 mm. No radiographic evidence of acute cholecystitis. ? Duodenitis in the setting of DAPT for prior CVA. ? WBC 5.3, no signs of sepsis. ? Started IV Protonix 40 mg twice daily. ? Continue Zosyn empirically pending ultrasound. ? Follow-up RUQ ultrasound in the morning. N.p.o. at midnight. ? General Surgery consulted, planning for EGD in the morning to further evaluate duodenitis as above. #Hypertension #Type 2 diabetes #Prior CVA with right-sided residual weakness - Continue Plavix 75 mg daily, aspirin 81 mg. Continue Lipitor 10 mg nightly, metformin. ? Follow-up hemoglobin A1c. - Hold losartan, HCTZ as BP stable. Full code DVT prophylaxis: Lovenox 40 mg
--- NOTE | 2025-03-12 22:27 | EXP.EVENT.NO ---
Nursing reported the patient's had several episodes of watery diarrhea. Patient is unchanged and is stable will order diarrhea panel
[2025-03-13] MEDS: PIPERCILLIN/TAZO 3.375 GM in 0.9 % SODIUM CHLORIDE 50 ML IV ×2 (01:14→09:49)
[2025-03-13 04:00] VITALS: BP 156/97; PULSE 86; RESP 14; TEMP 36.7; O2SAT 97; BMI 32.3
[2025-03-13] MEDS: LACTATED RINGERS 1000ML 1,000 ML 100 ML IV (05:46)
--- NOTE | 2025-03-13 06:00 | US_ITS ---
FINAL REPORT CLINICAL HISTORY: RUQ pain, CBD dilation on CT abdomen FINDINGS: Sonographic images of the right upper quadrant were obtained. The pancreas is partially obscured.The liver has an unremarkable appearance.The gallbladder appears normal without evidence of gallstones.There is no evidence of biliary ductal dilatation. Common duct is normal in size. There is right renal scarring. IMPRESSION: No evidence of biliary obstruction or acute gallbladder disease. Reviewed, Interpreted and Dictated by Nelli Hampton MD Transcribed by Elaina Perez Authenticated and [facility]
--- NOTE | 2025-03-13 06:46 | EXP.SURG.PN ---
Subjective Patient reports: feels better Exam Data for Last 24 hours Vital signs and Labs for Last 24 Hours: Temp Pulse Resp BP Pulse Ox O2 Del Method 98.1 F 86 14 156/97 H 97 Room Air 03/13/25 04:00 03/13/25 04:00 03/13/25 04:00 03/13/25 04:00 03/13/25 04:00 03/13/25 06:42 Laboratory Results - last 24 hr 03/12/25 06:40: WBC 5.3, RBC 3.71 L, Hgb 11.9 L, Hct 36.0 L, MCV 97.0, MCH 32.1 H, MCHC 33.1, RDW 13.2, Plt Count 215, MPV 10.6 H, Neut % (Auto) 64.4, Lymph % (Auto) 25.5, [place] % (Auto) 7.6, Eos % (Auto) 2.1, Baso % (Auto) 0.2, Neut # (Auto) 3.4, Lymph # (Auto) 1.3, [place] # (Auto) 0.4, Eos # (Auto) 0.1, Baso # (Auto) 0.0, Sodium 138, Potassium 4.0 D, Chloride 106, Carbon Dioxide 22, Anion Gap 14.0, BUN 14, Creatinine 0.70, Estimated Creat Clear 124, Estimated GFR 88, Est GFR ( Amer) 106, Glucose 95, Calcium 8.7, Total Bilirubin 0.5, GGT 24, AST 34, ALT 21, Alkaline Phosphatase 93, Total Protein 6.7, Albumin 3.9, Globulin 2.8, Albumin/Globulin Ratio 1.4, Lipase 164 03/12/25 16:31: POC Glucose 96 I & O for Last 24 hours: Intake & Output 03/10/25 03/11/25 03/12/25 03/13/25 11:59 11:59 11:59 11:59 Intake Total 514 / 514 2170 / 2170 Output Total 100 / 100 552 / 552 Balance 414 / 414 1618 / 1618 Weight 184 lb 14.4 oz 189 lb 4.8 oz Constitutional Constitutional: no acute distress *Routine Respiratory Exam Respiratory: Absent respiratory distress *Routine Cardiovascular Exam Cardiovascular: Absent tachycardia *Routine Abdominal Exam Abdominal: Present soft Progress Note: A&P Assessment and plan (1) Duodenitis: Status: Acute (2) Epigastric pain: Status: Acute (3) Right upper quadrant abdominal pain: Status: Acute (4) Common bile duct dilatation: Status: Acute (5) Hypokalemia: Status: Acute Assessment and Plan Assessment and Plan for All Diagnoses:: The patient has continued to clinically improve and currently feels better . Consent was not able to be obtained for esophagogastroduodenoscopy. As the patient has shown significant improvement on current therapy, holding off on endoscopic evaluation for now is reasonable. With regard to possible biliary disease, it is reasonable to complete formal right upper quadrant ultrasound during this hospital stay. From a surgical standpoint, the patient is stable for discharge home with close outpatient follow-up once her ultrasound is completed.
[2025-03-13 07:56] LABS: Hematocrit 33.3 % (37.0-47.0); Hemoglobin 10.9 g/dL (12.2-16.2); Immature Granulocytes % 0.3 %; Mean Corpuscular HGB Conc 32.7 g/dL (31.8-35.4); Mean Corpuscular Hemoglobin 31.6 pg (27.0-31.2); Mean Corpuscular Volume 96.5 fl (81-99); Nucleated Red Blood Cells % 0 %; Platelet Count 178 K/mm3 (142-424); Red Blood Count 3.45 M/mm3 (4.20-5.40); Red Cell Distribution Width-SD 44.8 fL; White Blood Count 3.1 K/mm3 (4.8-10.8)
[2025-03-13 08:00] VITALS: BP 144/87; PULSE 67; RESP 17; TEMP 36.6; O2SAT 95
[2025-03-13 08:08] LABS: Alanine Aminotransferase 15 U/L (12-78); Albumin Level 3.3 g/dl (3.5-5.0); Albumin/Globulin Ratio 1.3 (1.1-1.8); Alkaline Phosphatase 83 U/L (38-126); Anion Gap 12.6 mEq/L (5-15); Aspartate Amino Transferase 30 U/L (14-36); Bilirubin,Total 0.6 mg/dl (0.2-1.3); Blood Urea Nitrogen 8 mg/dl (7-17); Calcium 8.7 mg/dl (8.4-10.2); Carbon Dioxide 25 mmol/L (22.0-30.0); Chloride 107 mmol/L (98-107); Creatinine Clearance Estimated 127 mL/min (50-200); Creatinine,Serum 0.70 mg/dl (0.52-1.04); Estimated Glomerular Filt Rate 88 ml/min (>60); GFR (African American) 106 ML/MIN (>60); Globulin 2.5 g/dL (1.3-3.2); Glucose 100 mg/dl (74-100); Magnesium 1.9 mg/dl (1.6-2.3); Potassium 3.6 mmoL/L (3.5-5.1); Sodium 141 mmol/L (136-145); Total Protein,Serum 5.8 g/dl (6.3-8.2)
--- NOTE | 2025-03-13 09:05 | HMH.PTEV ---
Physical Therapy Evaluation Rehab PT IP Evaluation Start: 03/12/25 03:15 Freq: ONCE Status: Active Protocol: Document 03/13/25 07:55 MIGUEL (Rec: 03/13/25 08:11 MIGUEL [id number]) Subjective/History History History Per H&P: Mr. Charles who apparently suffered some form of stroke in November 2023 and is aphasia with right-sided weakness and hand contracture right hand. She was brought back for cystitis by her family in August 2024 and now has been placed in a long-term care. Today apparently there was an episode after eating where she developed 10 out of 10 pain in the right upper quadrant without nausea or vomiting. Patient is nonverbal but seems to understand some questions and answers with a yes or no sometime. Talking with ER provider do feel that it would be prudent to admit her for further evaluation of potential gallbladder symptoms related to that the pain was severe and started after eating. Labs show no significant abnormalities. CT scan of the abdomen was done. Will keep the patient n.p.o. except for ice chips and will consult general surgery. Patient is able to move right leg but unsure if patient can ambulate independently she was not stood while I was in the emergency room checking her., Also due to this did not roll her but she was able to sit up some that I could listen to her posterior lungs. But will check for skin breakdown after the patient is placed up on the floor. Subjective Subjective Questionable historian. PLOF: Pt reports she is normally able to walk without AD. HOME: Pt reports she does not live alone but doesn't know who she lives with. Pt reports she does have steps . ASSIST: Reports no to question regarding any assistance at home. [facility] How much help from another person do you currently need... Turning from your None back to your side while in a flat bed without using bedrails? Moving from lying on None back to sitting on the side of a flat bed without using bedrails? Moving to and from a None bed to a chair ( including a wheelchair)? Standing up from a A little chair using your arms? (e.g., wheelchair, bedside chair) Walking in hospital A little room? Climbing 3-5 steps A little with a railing? Mobility Score 21 Mobility Level [facility] Mobility 6 Walk 10 steps or more Mobility Calculator Rehab PT IP Eval Objective Appearance Patient Behavior Appropriate,Cooperative Patient Orientation Person Difficulty following moderate instructions Speech Pattern Aphasic Ambulation Patient Able to Yes Ambulate Ambulation Observation IP General Gait Antalgic Gait Pattern Observation Ambulation Distance 20 (feet) Ambulation Assistive None Device Ambulation Ability Supervision/Stand by,Minimal x 1 (25% assist) Balance Ability to Arise Able, uses arms to help Sitting Balance Steady, safe Standing Balance Unsteady Dynamic Sitting Good Balance Ability Dynamic Standing Fair Balance Ability Transfers Bed Transfer Ability Supervision/Stand by Sit to Stand Bed Contact Guard/Hand Hold Transfer Ability Rehab PT IP prob,goals,plan Problems Date of Evaluation: 03/13/25 PT IP Problems Gait,Balance,Self care,Safety Rehab Potential Rehab Potential Fair Plan PT Intervention Plan Gait,Balance,Safety Other Intervention 1-2 times Plan PT Plan Frequency Daily Duration Goals Met Discharge Goals Bed Transfer Ability Independent Sit to Stand Chair Independent Transfer Ability Ambulation Assistive None Device Ambulation Distance 20 (feet) Discharge Plan PT Discharge Plan Pt able to demo ambulation with SUP. However, pt did demo 2 LOB requiring Min-Mod A to correct. Pt became mildly combative with PT when PT would help pt steady to prevent fall. Pt able to demo IND toilet transfer and toileting hygiene. Pt again became frustrated with PT at PT's attempt to perform CGA for safety. Pt left supine in bed with alarm armed. Per H&P, pt is at a long-term care facility. Pt most appropriate to return to long-term care facility with PT services to address mobility. Pt would benefit from skilled acute care PT to address impaired balance until pt reaches her goal of IND ambulation. Eval Complexity Eval Charge Codes 29318 - Moderate Complexity PHYSICIAN CERTIFICATION: I certify the specified therapy services for Matilda Charles are required, authorized, and reviewed every 30 days.
[2025-03-13 09:32] LABS: Hemoglobin A1C 6.9 % (4.0-6.0)
[2025-03-13] MEDS: ASPIRIN EC 81MG TABLET 81 MG PO (09:49)
[2025-03-13] MEDS: METFORMIN 500MG TABLET 500 MG PO (09:49)
[2025-03-13] MEDS: PANTOPRAZOLE 40MG VIAL 40 MG IV (09:50)
[2025-03-13] MEDS: SODIUM CHLORIDE 0.9% 10ML VIAL 8 ML IV (09:50)
[2025-03-13] MEDS: POLYETHYLENE GLYCOL 3350 17 GM PACKET PO (09:50)
[2025-03-13] MEDS: ESCITALOPRAM 10MG TABLET 10 MG PO (09:54)
[2025-03-13] MEDS: CLOPIDOGREL 75MG TAB 75 MG PO (09:55)
--- NOTE | 2025-03-13 10:21 | HMH.OTEV ---
OT Inpatient Evaluation Rehab OT IP Evaluation Start: 03/12/25 03:49 Freq: ONCE Status: Active Protocol: Document 03/13/25 10:15 CHRISTIE (Rec: 03/13/25 10:21 CHRISTIE [id number]) Rehab OT IP Assessment Subjective History Per H&P: Mr. Charles who apparently suffered some form of stroke in November 2023 and is aphasia with right-sided weakness and hand contracture right hand. She was brought back for cystitis by her family in August 2024 and now has been placed in a long-term care. Today apparently there was an episode after eating where she developed 10 out of 10 pain in the right upper quadrant without nausea or vomiting. Patient is nonverbal but seems to understand some questions and answers with a yes or no sometime. Talking with ER provider do feel that it would be prudent to admit her for further evaluation of potential gallbladder symptoms related to that the pain was severe and started after eating. Labs show no significant abnormalities. CT scan of the abdomen was done. Will keep the patient n.p.o. except for ice chips and will consult general surgery. Patient is able to move right leg but unsure if patient can ambulate independently she was not stood while I was in the emergency room checking her., Also due to this did not roll her but she was able to sit up some that I could listen to her posterior lungs. But will check for skin breakdown after the patient is placed up on the floor. Subjective [facility]. Pt supine in bed when therapy entered room. Pt orient x3. pt reported they live at [facility]. Pt reports they are ind in FM. Pt reports they need ADL and IADL assist from nurses. pt reports they have shower chair and grab bars. pt reports they do not drive. pt agreed to complete FM tasks. Pt went from supine to EOB with SBA. Pt then completed STS with SBA. Pt able to complete dynamic standing balance with SBA for aprox 1 minute demo good tolerance and endurance. Pt then sat back on EOB and went to supine position with SBA. pt left with call light and all other need within reach and bed alarm on. Objective Patient Orientation Person,Place,Birthday Right Upper WFL Extremity Gross ROM Left Upper Extremity WFL Gross ROM Bed Mobility bed mobility-scooting,bed mobility - supine/sit Assist Level Supervision/Stand by Transfer Training Sit/Stand Transfer Assist Level Supervision/Stand by Chair Transfer Sit to/from Ambulatory Technique Chair Transfer None Assistive Devices Decrease in No Endurance Rehab OT IP prob,goals,plan Problems Date of Evaluation: 03/13/25 Rehab Potential Rehab Potential Innapropriate for Skilled Therapy Discharge Plan OT Discharge Plan At this time, pt appears to be at baseline in transfers , bed mobility, and endurance. Pt would not benefit from skilled acute OT services while at [facility]. Pt can back to [facility] with OT services if needed for improvement in functional occupational performance if needed. If pt declines while at [facility], OT services and interventions can be readdressed. Eval Complexity Eval Charge Codes 10006 - Moderate Complexity PHYSICIAN CERTIFICATION: I certify the specified therapy services for Matilda Charles are required, authorized, and reviewed every 30 days.
--- NOTE | 2025-03-13 10:39 | SW/DCPLANNER ---
Patient currently resides at [facility]. Per PT patient is able to return to [facility]. I have updated Sejal/Veronica young/ Wellington Jung that pending US patient will return today. I have also updated Wellington Jung that due to decision makers being incarcerated that [facility] may want to be considered. I will continue to follow up.
--- NOTE | 2025-03-13 12:10 | EXP.DC.SUM ---
General Admission date:: 03/12/25 HPI HPI HPI: This is a 54-year-old female seen in consultation after presenting to the emergency department with upper abdominal pain (mostly in the right upper quadrant). Currently she feels better . CT scan dated 03/11/2025 reviewed. Mild antral and duodenal wall thickening, as well as, distention noted. Mild antritis/duodenitis considered. Mild prominence of the common bile duct measuring 7 mm noted. Emergency department evaluation dated 03/11/2025 reviewed. Point of care ultrasound showed possible sludge within the gallbladder. No stones noted. No evidence of wall thickening noted. Forwarded from admission H&P: Mr. Charles who apparently suffered some form of stroke in November 2023 and is aphasia with right-sided weakness and hand contracture right hand. She was brought back for cystitis by her family in August 2024 and now has been placed in a long-term care. Today apparently there was an episode after eating where she developed 10 out of 10 pain in the right upper quadrant without nausea or vomiting. Patient is nonverbal but seems to understand some questions and answers with a yes or no sometime. Talking with ER provider do feel that it would be prudent to admit her for further evaluation of potential gallbladder symptoms related to that the pain was severe and started after eating. Labs show no significant abnormalities. CT scan of the abdomen was done. Will keep the patient n.p.o. except for ice chips and will consult general surgery. Patient is able to move right leg but unsure if patient can ambulate independently she was not stood while I was in the emergency room checking her., Also due to this did not roll her but she was able to sit up some that I could listen to her posterior lungs. But will check for skin breakdown after the patient is placed up on the floor. Hospital Course Hospital Course Hospital Course: Matilda Charles is a 54-year-old female who presented with 1 day history of right upper quadrant pain and was admitted for further evaluation of gastritis/duodenitis, and CBD dilatation. #Right upper quadrant pain #CBD dilatation #Gastritis, duodenitis ? Presented with 1 day onset of RUQ pain. CT abdomen/pelvis showed antral, duodenal wall thickening in addition to CBD measuring 7 mm. No radiographic evidence of acute cholecystitis. ? Duodenitis in the setting of DAPT for prior CVA. ? WBC 5.3, no signs of sepsis. ? Started IV Protonix 40 mg twice daily with significant improvement in symptoms. Also treated with Zosyn empirically until RUQ resulted. ? Bladder ultrasound did not show acute cholecystitis, CBD dilatation. Patient tolerating p.o. intake without issues. ? General Surgery consulted, will consider outpatient EGD patient continues to have symptoms. ? Continue Protonix 40 mg daily, Carafate as needed. #Hypertension #Type 2 diabetes #Prior CVA with right-sided residual weakness - Continue Plavix 75 mg daily, aspirin 81 mg. Continue Lipitor 10 mg nightly, metformin. Hemoglobin A1c 6.9%. ? Continue losartan, hydrochlorothiazide. Total time spent on discharge: 32 minutes on chart review, counseling, documentation, and direct care with patient. Exam Data for Last 24 hours Vital signs and Labs for Last 24 Hours: Temp Pulse Resp BP Pulse Ox O2 Del Method 98 F 67 17 144/87 H 95 Room Air 03/13/25 08:00 03/13/25 08:00 03/13/25 08:00 03/13/25 08:00 03/13/25 08:00 03/13/25 11:00 Laboratory Results - last 24 hr 03/12/25 16:31: POC Glucose 96 03/13/25 07:31: WBC 3.1 L D, RBC 3.45 L, Hgb 10.9 L, Hct 33.3 L, MCV 96.5, MCH 31.6 H, MCHC 32.7, RDW 12.9, Plt Count 178, MPV 10.0, Neut % (Auto) 58.3, Lymph % (Auto) 29.8, [place] % (Auto) 8.4, Eos % (Auto) 3.2, Baso % (Auto) 0.0 L, Neut # (Auto) 1.8, Lymph # (Auto) 0.9, [place] # (Auto) 0.3, Eos # (Auto) 0.1, Baso # (Auto) 0.0, Sodium 141, Potassium 3.6, Chloride 107, Carbon Dioxide 25, Anion Gap 12.6, BUN 8 D, Creatinine 0.70, Estimated Creat Clear 127, Estimated GFR 88, Est GFR ( Amer) 106, Glucose 100, Hemoglobin A1c 6.9 H, Calcium 8.7, Magnesium 1.9, Total Bilirubin 0.6, AST 30, ALT 15 D, Alkaline Phosphatase 83, Total Protein 5.8 L, Albumin 3.3 L D, Globulin 2.5, Albumin/Globulin Ratio 1.3 I & O for Last 24 hours: Intake & Output 03/10/25 03/11/25 03/12/25 03/13/25 23:59 23:59 23:59 23:59 Intake Total 1834 / 1834 850 / 850 Output Total 652 / 652 0 / 0 Balance 1182 / 1182 850 / 850 Weight 81.647 kg 83.869 kg 85.865 kg Constitutional Constitutional: no acute distress *Routine HEENT Exam Head: Present normocephalic Eye: Present EOMI and PERRL ENT: Present mucous membranes moist *Routine Neck Exam Neck: Present supple; Absent lymphadenopathy *Routine Respiratory Exam Respiratory: Present CTA bilaterally *Routine Cardiovascular Exam Cardiovascular: Present RRR *Routine Abdominal Exam Abdominal: Present soft and normoactive bowel sounds; Absent tenderness *Routine Extremities Exam Extremities: Absent cyanosis, clubbing or edema *Routine Skin Exam Skin: Present warm; Absent rash *Routine Neurological Exam Neurological: Present alert Results Data Completed and Pending Labs on day of discharge: Labs from last 24 hours 03/13/25 03/12/25 07:31 16:31 WBC 3.1 L D RBC 3.45 L Hgb 10.9 L Hct 33.3 L MCV 96.5 MCH 31.6 H MCHC 32.7 RDW 12.9 Plt Count 178 MPV 10.0 Neut % (Auto) 58.3 Lymph % (Auto) 29.8 [place] % (Auto) 8.4 Eos % (Auto) 3.2 Baso % (Auto) 0.0 L Neut # (Auto) 1.8 Lymph # (Auto) 0.9 [place] # (Auto) 0.3 Eos # (Auto) 0.1 Baso # (Auto) 0.0 Sodium 141 Potassium 3.6 Chloride 107 Carbon Dioxide 25 Anion Gap 12.6 BUN 8 D Creatinine 0.70 Estimated Creat Clear 127 Estimated GFR 88 Est GFR ( Amer) 106 Glucose 100 POC Glucose 96 Hemoglobin A1c 6.9 H Calcium 8.7 Magnesium 1.9 Total Bilirubin 0.6 AST 30 ALT 15 D Alkaline Phosphatase 83 Total Protein 5.8 L Albumin 3.3 L D Globulin 2.5 Albumin/Globulin Ratio 1.3 DS: Diagnosis Discharge Diagnosis (1) Duodenitis: Status: Acute Code(s): K29.80 - Duodenitis without bleeding (2) Epigastric pain: Status: Acute Code(s): R10.13 - Epigastric pain (3) Right upper quadrant abdominal pain: Status: Acute Code(s): R10.11 - Right upper quadrant pain (4) Common bile duct dilatation: Status: Acute Code(s): K83.8 - Other specified diseases of biliary tract (5) Hypokalemia: Status: Acute Code(s): E87.6 - Hypokalemia Meds Home Medications and Allergies Home Medications ?Medication ?Instructions ?Recorded ?Confirmed ?Type aspirin 81 mg tablet,delayed 81 mg PO DAILY #90 tabs 09/13/24 03/12/25 Rx release atorvastatin 40 mg tablet 40 mg PO HS 3 months #90 tabs 09/13/24 03/12/25 Rx cetirizine 10 mg tablet 10 mg PO DAILY #90 tabs 09/13/24 03/12/25 Rx clopidogrel 75 mg tablet 75 mg PO DAILY #90 tabs 09/13/24 03/12/25 Rx ergocalciferol (vitamin D2) 1,250 50,000 unit PO WEEKLY #4 caps 09/13/24 03/12/25 Rx mcg (50,000 unit) capsule (Vitamin D2) fluticasone propionate 50 2 spray intranasal DAILY #16 grams 09/13/24 03/12/25 Rx mcg/actuation nasal spray,suspension metformin 500 mg tablet 500 mg PO DAILY #90 tabs 09/13/24 03/12/25 Rx escitalopram oxalate 10 mg tablet 10 mg PO DAILY 03/12/25 03/12/25 History ezetimibe 10 mg tablet 10 mg PO DAILY 03/12/25 03/12/25 History losartan 100 1 tab PO DAILY 03/12/25 03/12/25 History mg-hydrochlorothiazide 25 mg tablet pantoprazole 40 mg tablet,delayed 40 mg PO DAILY 30 days #30 tabs 03/13/25 Rx release (Protonix) New Prescriptions to Start Prescriptions: pantoprazole [Protonix] Ramírez Thomason Allergies Allergy/AdvReac Type Severity Reaction Status Date / Time ibuprofen Allergy Verified 07/06/24 15:00 Discharge Plan Disposition Patient Disposition: Home, Self-Care Condition: Fair Follow up Plan Follow up with: Td Milligan MD [Staff Physician, General Surgery] - 1 week Prescriptions/Medication Reconciliation: New pantoprazole [Protonix] 40 mg tablet,delayed release (DR/EC) 40 mg PO DAILY 30 Days Qty: 30 0RF Rx Instructions: Take on empty stomach in the morning. Continued atorvastatin 40 mg tablet 40 mg PO HS 90 Days Qty: 90 1RF metformin 500 mg tablet 500 mg PO DAILY Qty: 90 1RF cetirizine 10 mg tablet 10 mg PO DAILY Qty: 90 1RF clopidogrel 75 mg tablet 75 mg PO DAILY Qty: 90 1RF aspirin 81 mg tablet,delayed release (DR/EC) 81 mg PO DAILY Qty: 90 1RF ergocalciferol (vitamin D2) [Vitamin D2] 1,250 mcg (50,000 unit) capsule 50,000 unit PO WEEKLY Qty: 4 0RF fluticasone propionate 50 mcg/actuation spray,suspension 2 spray INTRANASAL DAILY Qty: 16 3RF losartan-hydrochlorothiazide 100-25 mg tablet 1 tab PO DAILY escitalopram oxalate 10 mg tablet 10 mg PO DAILY ezetimibe 10 mg tablet 10 mg PO DAILY Problem Reconciliation Problems Reviewed?: Yes Patient Discharge Instructions Patient Instructions: DI for Cholecystitis Print Language: [employer] Providers Primary Care Provider: Provider,Referral Admit Provider: Ramírez Thomason Attending Provider: Ramírez Thomason
--- NOTE | 2025-03-15 10:44 | SW/DCPLANNER ---
Phoned patient x2. Patient's mailbox has not been sat up and was not able to leave a message or call back number. Beth Gautam
== END 2025-03-13 15:45 | disposition home or self-care (01) ==
LOC: ER 03-12 00:16 → 2ND 03-12 02:43
PROVIDERS: Nurse Practitioner Family; Admitting Provider Student in an Organized Health Care Education/Training Program; Emergency Provider Student in an Organized Health Care Education/Training Program; Visit Provider Student in an Organized Health Care Education/Training Program
DX: K29.90 Gastroduodenitis, unspecified, without bleeding (principal); K83.8 Other specified diseases of biliary tract; E87.6 Hypokalemia; I10 Essential (primary) hypertension; E11.9 Type 2 diabetes mellitus without complications; I69.320 Aphasia following cerebral infarction; E66.9 Obesity, unspecified; Z87.891 Personal history of nicotine dependence; Z88.6 Allergy status to analgesic agent; Z79.84 Long term (current) use of oral hypoglycemic drugs; Z79.899 Other long term (current) drug therapy; Z79.82 Long term (current) use of aspirin; Z79.02 Long term (current) use of antithrombotics/antiplatelets; Z68.32 Body mass index [BMI] 32.0-32.9, adult
CPT/HCPCS: 36415; 74177; 76705; 80053; 82962; 82977; 83036; 83690; 83735; 85025; 85610; 86850; 96361; 96365; 96375; 96376; 97162; 97166; 99285; G0378; J2270; J2405; J2470; J2543; J3480; J7030; J7120; Q9967